=== PATIENT | female | born 1980 | race Caucasian/White ===

== ENCOUNTER 2017-05-07 12:36 | Inpatient (IN) | payer MEDICAID ==
[2017-05-07] MEDS ORDERED: Sodium Chloride 0.9% 500 ML IV ONE ×2 (12:54→13:20)
--- NOTE | 2017-05-07 12:54 | ED Physician Chart ---
ED Chief Complaint/HPI - Patient Information Date Seen:: 05/07/17 Time Seen:: 12:40 Chief Complaint:: Altered mental status. History of Present Illness:: Brought in by ambulance from nursing facility because she was found to be less responsive earlier. Pt has h/o traumatic brain injury and has been essentially nonverbal. Pt had G-tube placement for G-tube feeding. Pt reportedly pulled out her G-tube recently. Pt was noticed to have tachycardia prior to arrival at ER. Pt is responsive to voice and tactile stimuli. She is unable to cooperate fully; thus, H & P are limited. Info is primarily from review of transfer documents. Allergies:: Allergies Allergy/AdvReac Type Severity Reaction Status Date / Time MDX No Known Allergies - Nka Allergy Verified 08/14/13 17:11 [No Known Allergies - Nka] Vitals:: see Nurse Note Historian:: Medical Records (from transferring facility.) Family MD/PCP:: Dr. Haddad LMP:: Unknown Review:: Nurse's Note Reviewed, Transfer documents Reviewed ED Review of Systems - Review of Systems General/Constitutional: Other (Pt does not cooperate for ROS) ED Past Medical History - Past Medical History Past Medical History: PUD/GERD, Other (Trauma brain injury, chronic anemia.) Family History: Other (Pt does not cooperate to provide info on FHx.) Social History: Care Facility, Other (Pt does not cooperate to provide info on SHx.) Surgical History: PEG/GTube Psychiatricy History: Other (Mood disorder/Anxiety disorder.) Medication: Reviewed Family Medical History - Family Member Father Age: 67 Ethnicity: Non- Living Status: Still Living Hx Family Cancer: No Hx Family Coronary Artery Disease: No Hx Family Congestive Heart Failure: No Hx Family Hypertension: No Hx Family Stroke: No Hx Family Diabetes: Yes Hx Family Seizures: No Hx Family Dementia: No Hx Family AIDS: No Hx Family HIV: No Hx Family COPD: No Hx Family Hepatitis: No Hx Family Psychiatric Problems: No Hx Family Tuberculosis: No Other Medical History: Father at pt.'s bedside. Medical history given by father. ED Physical Exam - Physical Examination General/Constitutional: Awake, Well-developed, well-nourished, Alert, Non-toxic appearing Other Gen/Cons comments:: Responds to voice and tactile stimuli. Pt appears to be anxious but otherwise in no distress. Other Head comments:: A well healed craniostomy surgical scar noticed in R frontoparietal region. Eyes: PERRL, EOMI Other Eyes comments:: Chronic changes noticed in R eyelid with partial closure of lateral aspect. Skin: No skin lesions, No ecchymosis, No lymphadenopathy ENMT: External ears, nose nl, Nasal exam nl, Oropharynx nl Other ENMT comments:: Mucous membrane is dry. Neck: Nontender, Full ROM w/o pain, No JVD, No nuchal rigidity, No mass, No stridor Other Neck comments:: Tracheostomy noticed in mid anteroinferior aspect. Respiratory: Nl effort/Exclusion, Clear to Auscultation, No Wheeze/Rhonchi/Rales Cardio Vascular: No murmur, gallop, rubs Other Cardio Vascular comments:: Regular rhythm with tachycardia. HR 146. GI: No tenderness/rebounding/guarding, No organomegaly, No hernia, Normal BS's, Nondistended, No mass/bruits, No McBurney tenderness Other GI comments:: Gastrostomy noticed in LUQ with rubber catheter in place. Extremities: No edema Other Neuro/Psych comments:: Alert and responds to voice and tactile stimuli. Spontaneous movements noticed in all 4 extremities. Pt does not cooperate for full neurological exam. ED Labs/Radiology/EKG Results - Lab Results Results: Laboratory Tests 05/07/17 05/07/17 05/07/17 12:58 12:58 12:58 WBC 25.3 H* D RBC 5.57 H Hgb 16.9 D Hct 51.8 D MCV 93.0 MCH 30.4 MCHC Differential 32.7 RDW 14.0 Plt Count 298 MPV 9.9 Band Neutrophils % 4 Neutrophils (Manual) 70 Lymphocytes 20 Monocytes 6 Platelet Estimate ADEQUATE Platelet Morphology NORMAL RBC Morph Micro Appear NORMAL PT 12.0 H INR 1.14 PTT (Actin FS) 24.5 L Sodium 165 H* Potassium 4.0 Chloride 125 H Carbon Dioxide 33.6 H Anion Gap 10.4 BUN 32 H Creatinine 1.2 Est GFR ( Amer) > 60.0 Est GFR (Non-Af Amer) 54.0 BUN/Creatinine Ratio 26.7 Glucose 216 H POC Glucose Hemoglobin A1c % Whole Bld Lactic Acid Calcium 10.7 H Total Bilirubin 2.1 H AST 150 H ALT 98 H Alkaline Phosphatase 65 Creatine Kinase 41 Troponin I Total Protein 8.8 H Albumin 4.5 Globulin 4.3 Albumin/Globulin Ratio 1.1 Urine Source Urine Color Urine Clarity Urine pH Ur Specific [place] Urine Protein Urine Glucose (UA) Urine Ketones Urine Blood Urine Nitrate Urine Bilirubin Urine Urobilinogen Ur Leukocyte Esterase Urine RBC Urine WBC Ur Epithelial Cells Amorphous Sediment Urine Bacteria Urine Mucus Urine Test Valproic Acid 05/07/17 05/07/17 05/07/17 12:58 13:06 13:11 WBC RBC Hgb Hct MCV MCH MCHC Differential RDW Plt Count MPV Band Neutrophils % Neutrophils (Manual) Lymphocytes Monocytes Platelet Estimate Platelet Morphology RBC Morph Micro Appear PT INR PTT (Actin FS) Sodium Potassium Chloride Carbon Dioxide Anion Gap BUN Creatinine Est GFR ( Amer) Est GFR (Non-Af Amer) BUN/Creatinine Ratio Glucose POC Glucose 177 H Hemoglobin A1c % Whole Bld Lactic Acid Calcium Total Bilirubin AST ALT Alkaline Phosphatase Creatine Kinase Troponin I 0.10 H* D Total Protein Albumin Globulin Albumin/Globulin Ratio Urine Source Urine Color Urine Clarity Urine pH Ur Specific [place] Urine Protein Urine Glucose (UA) Urine Ketones Urine Blood Urine Nitrate Urine Bilirubin Urine Urobilinogen Ur Leukocyte Esterase Urine RBC Urine WBC Ur Epithelial Cells Amorphous Sediment Urine Bacteria Urine Mucus Urine Test Valproic Acid 25.4 L 05/07/17 05/07/17 05/07/17 13:45 13:45 13:45 WBC RBC Hgb Hct MCV MCH MCHC Differential RDW Plt Count MPV Band Neutrophils % Neutrophils (Manual) Lymphocytes Monocytes Platelet Estimate Platelet Morphology RBC Morph Micro Appear PT INR PTT (Actin FS) Sodium Potassium Chloride Carbon Dioxide Anion Gap BUN Creatinine Est GFR ( Amer) Est GFR (Non-Af Amer) BUN/Creatinine Ratio Glucose POC Glucose Hemoglobin A1c % Whole Bld Lactic Acid 3.10 H* Calcium Total Bilirubin AST ALT Alkaline Phosphatase Creatine Kinase Troponin I Total Protein Albumin Globulin Albumin/Globulin Ratio Urine Source [place] Urine Color ORANGE Urine Clarity CLOUDY H Urine pH 5.5 Ur Specific [place] 1.025 Urine Protein 100 H Urine Glucose (UA) NEGATIVE Urine Ketones TRACE Urine Blood SMALL H Urine Nitrate NEGATIVE Urine Bilirubin MODERATE H Urine Urobilinogen 1.0 Ur Leukocyte Esterase NEGATIVE Urine RBC 5-10 H Urine WBC 0-2 Ur Epithelial Cells FEW Amorphous Sediment MODERATE URATES Urine Bacteria 1+ H Urine Mucus MODERATE Urine Test NEGATIVE Valproic Acid 05/07/17 05/07/1717 13:59 15:03 21:01 WBC RBC Hgb Hct MCV MCH MCHC Differential RDW Plt Count MPV Band Neutrophils % Neutrophils (Manual) Lymphocytes Monocytes Platelet Estimate Platelet Morphology RBC Morph Micro Appear PT INR PTT (Actin FS) Sodium Potassium Chloride Carbon Dioxide Anion Gap BUN Creatinine Est GFR ( Amer) Est GFR (Non-Af Amer) BUN/Creatinine Ratio Glucose POC Glucose Hemoglobin A1c % 5.3 Whole Bld Lactic Acid 2.01 H* Calcium Total Bilirubin AST ALT Alkaline Phosphatase Creatine Kinase Troponin I 0.06 H D Total Protein Albumin Globulin Albumin/Globulin Ratio Urine Source Urine Color Urine Clarity Urine pH Ur Specific [place] Urine Protein Urine Glucose (UA) Urine Ketones Urine Blood Urine Nitrate Urine Bilirubin Urine Urobilinogen Ur Leukocyte Esterase Urine RBC Urine WBC Ur Epithelial Cells Amorphous Sediment Urine Bacteria Urine Mucus Urine Test Valproic Acid 05/07/17 21:45 WBC RBC Hgb Hct MCV MCH MCHC Differential RDW Plt Count MPV Band Neutrophils % Neutrophils (Manual) Lymphocytes Monocytes Platelet Estimate Platelet Morphology RBC Morph Micro Appear PT INR PTT (Actin FS) Sodium Potassium Chloride Carbon Dioxide Anion Gap BUN Creatinine Est GFR ( Amer) Est GFR (Non-Af Amer) BUN/Creatinine Ratio Glucose POC Glucose 140 H Hemoglobin A1c % Whole Bld Lactic Acid Calcium Total Bilirubin AST ALT Alkaline Phosphatase Creatine Kinase Troponin I Total Protein Albumin Globulin Albumin/Globulin Ratio Urine Source Urine Color Urine Clarity Urine pH Ur Specific [place] Urine Protein Urine Glucose (UA) Urine Ketones Urine Blood Urine Nitrate Urine Bilirubin Urine Urobilinogen Ur Leukocyte Esterase Urine RBC Urine WBC Ur Epithelial Cells Amorphous Sediment Urine Bacteria Urine Mucus Urine Test Valproic Acid - Radiology Results Results: PCXR: Based on my interpretation, poor inspiration; otherwise, no definite acute cardiopulmonary disease. Official report is pending. Head CT without contrast: Surgical changes. Atrophy and chronic white matter changes. Moderate ventriculomegaly. Malpositioned ventricular shunt tip w/in rt parietal white matter region. NAD. Official report per Dr. Arjun Wong, radiologist. Abdominal sonogram (Preliminary report): Significant for echogenic focus measures 0.8 x 0.5 x 1 cm. Low level echoes possibly indicative of sludge and small gallstones. See report for details. CT of abdomen and pelvis: pending. - EKG Interpretations EKG Time:: 13:01 Rate & Rhythm: Sinus tachycardia with VR 153 Comments:: NSSTT changes. Cannot r/o lateral ischemia. bus monitor: Sinus tachycardia with VR 149. No ectopy. ED Septic Shock - . Is Septic Shock (SBP<90, OR Lactate>4 mmol\L) present?: No ED Reassessment (Disposition) - Reassessment Reassessment:: 1340 Pt has been repeatedly evaluated. Pt has become more awake and responsive after IV hydration. Available lab results have been reviewed. IV fluid is to be changed to half normal saline because of hypernatremia. Because of significant leukocytosis, work up is to be expanded. 1450 Pt overall remains stable. No new findings. Awaiting abdominal sonogram. 1550 Pt continues to improve. Lactic acid level has decreased from 3.1 to 2. Pt just had CT and CXR. 1700 Pt remains stable. Abdominal sonogram is in progress. 1805 Pt continues to improve. Pt continues to be hydrated with half normal saline. Abdominal sonographic report and Head CT just became available. Lab, EKG , sonographic, and available CT findings have been reviewed with next kin her father at bedside. Managment plan has been discussed. Admitting physician is to be contacted. 1648 Case was discussed with Dr. Osei with pertinent H & P, lab, and imaging findings, etc. discussed. Pt is to be admitted to ICU under his care. He will follow on pending CT of abdomen and pelvis. Reassessment Condition:: Improved - Diagnosis Diagnosis:: Dehydration with hypernatremia. Probable sepsis with leukocytosis and lactic acidosis related to urinary tract infection with bacteriuria. Mildly elevated troponin I of unknown significance. Elevated tranaminase and hyperbilirubinemia. Diabetes mellitus. H/O traumatic brain injury with diability in speech and need for G-tube feeding. - Patient Disposition Admitted to:: ICU Admitting Medical Physician:: Vinay Osei Time:: 18:50 Condition at Disposition:: Stable, Improved ED Discharge Plan - Patient Disposition Admit/Discharge/Transfer: Acute Care w/in this hosp
[2017-05-07 13:06] VITALS: BP 121/99
[2017-05-07 13:10] LABS: MEAN CORPUSCULAR HEMOGLOBIN 30.4 pg (27.0-31.0); MEAN CORPUSCULAR HGB CONC 32.7 pg (28.0-36.0); MEAN PLATELET VOLUME 9.9 fl; NEUTROPHILE ABSOLUTE 19.9 Th/cmm (1.8-8.0); PLATELET COUNT 298 Th/cmm (150-400); RED BLOOD COUNT 5.57 Mil/cmm (3.80-5.10)
[2017-05-07 13:21] LABS: HEMATOCRIT 51.8 % (41.0-60); HEMOGLOBIN 16.9 gm/dL (12-16); WHITE BLOOD COUNT 25.3 Th/cmm (4.8-10.8)
[2017-05-07 13:25] LABS: ALB/GLOB RATIO 1.1 (1.0-1.8); ALKALINE PHOSPHATASE 65 U/L (34-104); ANION GAP 10.4 (7.0-16.0); BILIRUBIN,TOTAL 2.1 mg/dL (0.3-1.0); BUN - UREA NITROGEN 32 mg/dL (7-25); BUN/CREATININE RATIO 26.7; CALCIUM SERUM 10.7 mg/dL (8.6-10.3); CARBON DIOXIDE 33.6 mEq/L (21.0-31.0); CHLORIDE 125 mEq/L (98-107); CREATININE - SERUM 1.2 mg/dL (0.6-1.2); GLUCOSE 216 mg/dL (70-105); SGOT 150 U/L (13-39); SGPT/ALT 98 U/L (7-52)
[2017-05-07 13:39] LABS: TOTAL CELLS COUNTED 100
[2017-05-07 13:40] LABS: SODIUM SERUM 165 mEq/L (136-145)
[2017-05-07 13:42] LABS: BAND NEUTROPHILE 4 % (0-10); NEUTROPHILS 70 % (40-80); PLATELET ESTIMATE ADEQUATE (NORMAL); PLATELET MORPHOLOGY NORMAL (NORMAL)
[2017-05-07] MEDS ORDERED: Sodium Chloride 0.45% 1,000 ML IV ONE (13:42)
[2017-05-07] MEDS ORDERED: cefTRIAXone 1 GM in Sodium Chloride 0.9% 50 ML IV ONE (13:48)
[2017-05-07 14:15] LABS: URINE BILIRUBIN MODERATE (NEGATIVE); URINE BLOOD SMALL (NEGATIVE); URINE GLUCOSE (UA) NEGATIVE (NEGATIVE); URINE KETONE TRACE mg/dL (NEGATIVE); URINE PH 5.5 (4.6 - 8.0); URINE PROTEIN 100 mg/dL (NEGATIVE)
[2017-05-07 14:19] LABS: INR 1.14 (0.5-1.4)
[2017-05-07 14:39] LABS: URINE COLOR ORANGE
[2017-05-07 14:43] LABS: URINE EPITHELIAL CELLS FEW /lpf (FEW); URINE WBC 0-2 /hpf (0-5)
[2017-05-07 14:44] LABS: URINE AMORPHOUS SEDIMENT MODERATE URATES (NONE SEEN); URINE BACTERIA 1+ /hpf (NONE SEEN)
[2017-05-07] MEDS ORDERED: Ampicillin Sodium/Sulbactam 3 GM in Sodium Chloride 0.9% 100 ML IV ONE (14:54)
[2017-05-07] MEDS ORDERED: Hydrocodone/APAP 5mg/325mg Tab PO PRN (20:01)
[2017-05-07] MEDS ORDERED: Maalox 30 mL Cup PO PRN (20:04)
[2017-05-07] MEDS ORDERED: Ipratropium Neb 0.5 mg/2.5 mL UD IH PRN (20:04)
[2017-05-07] MEDS ORDERED: Albuterol Nebulizer 2.5mg/3mL HHN PRN (20:04)
[2017-05-07] MEDS ORDERED: Dextrose 5% 1,000 ML IV SCH (20:15)
[2017-05-07] MEDS: INSULIN ASPART, RECOMBINANT 100 UNITS/ML SUBQ SCH (21:46)
[2017-05-08 04:58] LABS: ALB/GLOB RATIO 1.1 (1.0-1.8); ALKALINE PHOSPHATASE 60 U/L (34-104); ANION GAP 10.1 (7.0-16.0); BILIRUBIN,TOTAL 1.3 mg/dL (0.3-1.0); BUN - UREA NITROGEN 22 mg/dL (7-25); BUN/CREATININE RATIO 27.5; CALCIUM SERUM 8.8 mg/dL (8.6-10.3); CARBON DIOXIDE 29.3 mEq/L (21.0-31.0); CHLORIDE 127 mEq/L (98-107); CREATININE - SERUM 0.8 mg/dL (0.6-1.2); GLUCOSE 143 mg/dL (70-105); MAGNESIUM 2.6 mg/dL (1.9-2.7); PHOSPHOROUS 2.5 mg/dL (2.5-5.0); POTASSIUM SERUM 3.4 mEq/L (3.5-5.1); SGOT 87 U/L (13-39); SGPT/ALT 67 U/L (7-52)
[2017-05-08 04:59] LABS: MEAN CELL VOLUME 93.1 fl (81-100); MEAN CORPUSCULAR HEMOGLOBIN 30.4 pg (27.0-31.0); MEAN CORPUSCULAR HGB CONC 32.7 pg (28.0-36.0); RED BLOOD COUNT 4.58 Mil/cmm (3.80-5.10)
[2017-05-08 05:14] LABS: SODIUM SERUM 163 mEq/L (136-145)
[2017-05-08 05:16] LABS: HEMATOCRIT 42.7 % (41.0-60); HEMOGLOBIN 13.9 gm/dL (12-16)
[2017-05-08 05:17] LABS: PLATELET COUNT 198 Th/cmm (150-400)
[2017-05-08 05:31] LABS: TSH 0.55 uIU/ml (0.34-5.60)
[2017-05-08 06:06] LABS: BAND NEUTROPHILE 4 % (0-10); BASOPHIL 1 % (0-3); EOSINOPHIL 2 % (0-5); NEUTROPHILS 69 % (40-80); TOTAL CELLS COUNTED 100
[2017-05-08] MEDS: INSULIN ASPART, RECOMBINANT 100 UNITS/ML SUBQ SCH ×4 (06:35→22:26)
--- NOTE | 2017-05-08 07:56 | Diagnostic Imaging Report ---
Head CT without intravenous contrast Indication: Altered mental status Comparison: None Technique: Axial images were obtained from the vertex to the skull base without IV contrast. Coronal reconstructions were made. Total DLP: 542, CTDI34.2 FINDINGS: Images of the brain obtained without contrast demonstrate evidence of left frontal and temporal craniotomies with associated postsurgical changes. A right frontal approach shunt catheter is seen traversing the frontal horn of the lateral ventricles with tip terminating along the left basal ganglia region. There is generalized prominence of ventricular system. There is no evidence of an acute hemorrhage. Atrophy is noted. Mild white matter disease is seen with areas of encephalomalacia seen involving the bifrontal lobes which may be due to old trauma or old infarcts. No mass effect or midline shift. No evidence of a skull fracture or focal soft tissue swelling. The visualized paranasal sinuses demonstrate mild mucosal thickening. IMPRESSION: Postsurgical changes including evidence of previous left frontal-temporal craniotomies. A right frontal approach shunt catheter is also seen traversing the frontal horn of the lateral ventricles with tip terminating along the right basal ganglia. Generalized prominence of ventricular system is also noted. Please correlate with patient's clinical history and old exams to assess patient's shunt status. Areas of encephalomalacia involving the bifrontal lobe regions which may be due to old trauma or old infarcts. Atrophy. No midline shift. No evidence of an acute hemorrhage.
--- NOTE | 2017-05-08 07:57 | Diagnostic Imaging Report ---
CHEST X-RAY: AP view INDICATION: Leukocytosis COMPARISON: None FINDINGS: A right-sided RECONCILEMENT CLERK shunt is noted. Suboptimal lung volumes are noted. There is no focal consolidation or pleural effusions The heart is normal in size. The osseous structures demonstrate no acute abnormalities. IMPRESSION: Suboptimal lung volume with no focal consolidation identified Right-sided RECONCILEMENT CLERK shunt noted.
--- NOTE | 2017-05-08 08:00 | Diagnostic Imaging Report ---
Ultrasound abdomen HISTORY: Elevated liver function tests COMPARISON: None Technique: Sonography of the abdomen was performed in multiple planes. FINDINGS: Exam is limited due to body habitus and bowel gas. The liver demonstrates increased echogenicity with no evidence of focal lesions. Note the liver margins were not well defined on this exam. The liver measures 15.4 cm. Low level echoes are seen within the gallbladder suggestive of small amount of sludge. A solitary stone is also seen measuring 1 cm near the gallbladder neck. No evidence of gallbladder wall thickening. The common bile duct measures 4 mm. Evaluation of the pancreas is limited due to bowel gas. The right kidney measures 10.7 cm. No evidence of focal lesions or hydronephrosis. The left kidney measures 10.3 cm No evidence of focal lesions or hydronephrosis. The spleen was not well-visualized. IMPRESSION: Limited exam due to bowel gas and body habitus. Low level echoes of the gallbladder are seen suggestive of gallbladder sludge. A solitary gallstone measuring 1 cm is also seen near the neck of the gallbladder. There may be additional tiny gallstones. Mildly distended gallbladder is also noted. No evidence of gallbladder wall thickening or pericholecystic fluid. Please correlate with clinical findings. No evidence of common bile duct dilatation Increased echogenicity of the liver which may be due to underlying fatty infiltration.
--- NOTE | 2017-05-08 08:45 | Diagnostic Imaging Report ---
CHEST X-RAY: AP view INDICATION: Pneumonia COMPARISON: Chest x-ray 05/07/2017 1553 FINDINGS: Right sided ELEVATOR ERECTOR HELPER shunt is stable. Increased bibasilar lung markings are seen. No pleural effusions. Heart size is normal. IVC filter is noted. IMPRESSION: Increased bibasilar markings which is likely due to atelectasis. Underlying infiltrate at the left lung base is less likely but cannot be excluded.
[2017-05-08] MEDS ORDERED: Pantoprazole 40 mg/Packet GT SCH (09:00)
[2017-05-08] MEDS: Polyvinyl Alcohol Ophth Soln 15 mL Bottle EACH EYE SCH ×2 (09:15→17:00)
[2017-05-08] MEDS ORDERED: Diatrizoate Meglumine/Diatri 30 mL Sol PO ONE (10:58)
--- NOTE | 2017-05-08 11:24 | Operative Report ---
DATE OF SURGERY: 05/08/2017 INPATIENT GASTROINTESTINAL PROCEDURE NAME OF PROCEDURE: G-tube change. REFERRING PHYSICIAN: Dr. Osei. REASON FOR PROCEDURE: Malfunctioning G-tube, dysphagia. PREOPERATIVE DIAGNOSIS: Malfunctioning G-tube, dysphagia. POSTOPERATIVE DIAGNOSIS: New 20-Alban[place] gastrostomy tube placed. DESCRIPTION OF PROCEDURE: The patient was placed on her back. The old G-tube was identified. It was a Wallace tube. It was removed after deflating the internal balloon and pulled out. A new 20-[place]ban[place] gastrostomy tube was lubricated at the tip and inserted through the gastrocutaneous fistula entering into stomach lumen. Internal balloon was inflated with 15 mL of sterile saline. The outer phalange was secured in position. Procedure was then completed. COMPLICATIONS: None. FINDINGS: A 20-[place]ban[place] gastrostomy tube placed. RECOMMENDATIONS: 1. KUB with Gastrografin confirmed placement. 2. If it is in the correct position may consider using in the future. 3. Check residual every 6 hours and if greater than 100 mL. 4. Abdominal binder to protect the G-tube from being pulled out. Thank you for allowing me to participate. Please call me if there are any questions. JOB# [id number]
[2017-05-08] MEDS ORDERED: VTE Chemical Prophylaxis Screen/Admission MC PRN (12:26)
--- NOTE | 2017-05-08 12:31 | Diagnostic Imaging Report ---
CT abdomen and pelvis without intravenous contrast Indication: Elevated transaminases. Hyperbilirubinemia Comparison: Ultrasound abdomen on 05/07/2017, Technique: Axial images were obtained from the lung bases to the bilateral proximal femurs without IV contrast. Coronal reconstructions were made. total DLP: 757, [id number] FINDINGS: Atelectatic changes of the lung bases are seen. There is incomplete visualization of the dome of the liver. Exam is limited due to lack of IV and oral contrast. Bibasal consolidative changes are noted. Hepatomegaly is seen with diffuse fatty infiltration. Markedly distended gallbladder is noted with a 1.8 cm calcification along the gallbladder neck. Mild prominence of the gallbladder wall is noted. No focal splenic or pancreatic lesions. No focal adrenal lesions. 6 mm superior pole left renal stone is noted. Additional punctate right renal stones are noted. No hydronephrosis. An infrarenal IVC filter is noted. Wallace catheter seen with pockets of gas and urinary bladder. AIR QUALITY MANAGER shunt catheter is seen terminating within the pelvis. Few pockets of gas in the urinary bladder is noted. There is 1.8 cm calcification along the right pelvis which may represent a fibroid calcification. Bilateral adnexal follicular cystic changes are noted. Gas-filled loops of bowel are noted without evidence of bowel obstruction. There is fatty infiltration of the colonic mucosa. The appendix is not well-visualized. A few borderline prominent mesenteric lymph nodes are noted. Osteopenia is noted. Mild changes spine are noted. Bilateral breast implants are noted. IMPRESSION: Hepatomegaly with diffuse fatty infiltration. Markedly distended gallbladder with 1.8 cm stone seen along the gallbladder neck and mild prominence of the gallbladder wall. Note, early cholecystitis cannot be excluded. Recommend further assessment nuclear medicine HIDA scan. IVC filter noted. AIR QUALITY MANAGER shunt catheter with tip terminating within the pelvis Bilateral nonobstructive renal calculi. Nonspecific calcification of the pelvis possibly uterine calcification possibly representing fibroid. Bilateral adnexal cystic changes. Ultrasound would further clarify. Bibasal consolidative changes. Pneumonia of the lung bases cannot be excluded.
[2017-05-08] MEDS: Dextrose 5% 1,000 ML IV SCH (13:14)
[2017-05-08] MEDS: Docusate Sodium 100 mg/10 mL UD GT SCH (13:15)
--- NOTE | 2017-05-08 13:34 | Internal Medicine Prog Note ---
Internal Medicine Subjective - Subjective Service Date: 05/08/17 ([facility] dictated [id number]) Internal Medicine Objective - Results Result Diagrams: 05/08/17 04:35 05/08/17 04:35 Recent Labs: Laboratory Last Values WBC 23.0 Th/cmm (4.8-10.8) H* 05/08/17 04:35 RBC 4.58 Mil/cmm (3.80-5.10) 05/08/17 04:35 Hgb 13.9 gm/dL (12-16) D 05/08/17 04:35 Hct 42.7 % (41.0-60) D 05/08/17 04:35 MCV 93.1 fl (81-100) 05/08/17 04:35 MCH 30.4 pg (27.0-31.0) 05/08/17 04:35 MCHC Differential 32.7 pg (28.0-36.0) 05/08/17 04:35 RDW 14.0 % (11.5-20.0) 05/08/17 04:35 Plt Count 198 Th/cmm (150-400) D 05/08/17 04:35 MPV 10.0 fl 05/08/17 04:35 Band Neutrophils % 4 % (0-10) 05/08/17 04:35 Neutrophils (Manual) 69 % (40-80) 05/08/17 04:35 Lymphocytes 19 % (20-50) L 05/08/17 04:35 Monocytes 5 % (2-10) 05/08/17 04:35 Eosinophils 2 % (0-5) 05/08/17 04:35 Basophils 1 % (0-3) 05/08/17 04:35 Platelet Estimate ADEQUATE (NORMAL) 05/07/17 12:58 Platelet Morphology NORMAL (NORMAL) 05/07/17 12:58 RBC Morph Micro Appear NORMAL (NORMAL) 05/07/17 12:58 PT 12.0 SECONDS (9.5-11.5) H 05/07/17 12:58 INR 1.14 (0.5-1.4) 05/07/17 12:58 PTT (Actin FS) 24.5 SECONDS (26.0-38.0) L 05/07/17 12:58 Sodium 163 mEq/L (136-145) H* 05/08/17 04:35 Potassium 3.4 mEq/L (3.5-5.1) L 05/08/17 04:35 Chloride 127 mEq/L (98-107) H 05/08/17 04:35 Carbon Dioxide 29.3 mEq/L (21.0-31.0) 05/08/17 04:35 Anion Gap 10.1 (7.0-16.0) 05/08/17 04:35 BUN 22 mg/dL (7-25) 05/08/17 04:35 Creatinine 0.8 mg/dL (0.6-1.2) 05/08/17 04:35 Est GFR ( Amer) > 60.0 ml/min (>90) 05/08/17 04:35 Est GFR (Non-Af Amer) > 60.0 ml/min 05/08/17 04:35 BUN/Creatinine Ratio 27.5 05/08/17 04:35 Glucose 143 mg/dL (70-105) H 05/08/17 04:35 POC Glucose 137 MG/DL (70 - 105) H 05/08/17 11:40 Hemoglobin A1c % 5.3 % (4.0-6.0) 05/07/17 13:59 Whole Bld Lactic Acid 2.01 mmol/L (0.60-1.99) H* 05/07/17 15:03 Calcium 8.8 mg/dL (8.6-10.3) 05/08/17 04:35 Phosphorus 2.5 mg/dL (2.5-5.0) 05/08/17 04:35 Magnesium 2.6 mg/dL (1.9-2.7) 05/08/17 04:35 Total Bilirubin 1.3 mg/dL (0.3-1.0) H 05/08/17 04:35 AST 87 U/L (13-39) H 05/08/17 04:35 ALT 67 U/L (7-52) H 05/08/17 04:35 Alkaline Phosphatase 60 U/L (34-104) 05/08/17 04:35 Ammonia 54 umol/L (16-53) H 05/08/17 04:35 Creatine Kinase 41 U/L (30-223) 05/07/17 12:58 Troponin I 0.06 ng/mL (0.01-0.05) H D 09/17/17 21:01 Total Protein 6.8 gm/dL (6.0-8.3) 05/08/17 04:35 Albumin 3.6 gm/dL (3.7-5.3) L 05/08/17 04:35 Globulin 3.2 gm/dL 05/08/17 04:35 Albumin/Globulin Ratio 1.1 (1.0-1.8) 05/08/17 04:35 Lipase 176 U/L (11-82) H 05/08/17 04:35 TSH 0.55 uIU/ml (0.34-5.60) 05/08/17 04:35 Urine Source [place] 05/07/17 13:45 Urine Color ORANGE 05/07/17 13:45 Urine Clarity CLOUDY (CLEAR) H 05/07/17 13:45 Urine pH 5.5 (4.6 - 8.0) 05/07/17 13:45 Ur Specific [place] 1.025 (1.005-1.030) 05/07/17 13:45 Urine Protein 100 mg/dL (NEGATIVE) H 05/07/17 13:45 Urine Glucose (UA) NEGATIVE mg/dL (NEGATIVE) 05/07/17 13:45 Urine Ketones TRACE mg/dL (NEGATIVE) 05/07/17 13:45 Urine Blood SMALL (NEGATIVE) H 05/07/17 13:45 Urine Nitrate NEGATIVE (NEGATIVE) 05/07/17 13:45 Urine Bilirubin MODERATE (NEGATIVE) H 05/07/17 13:45 Urine Urobilinogen 1.0 E.U./dL (0.2 - 1.0) 05/07/17 13:45 Ur Leukocyte Esterase NEGATIVE (NEGATIVE) 05/07/17 13:45 Urine RBC 5-10 /hpf (0-5) H 05/07/17 13:45 Urine WBC 0-2 /hpf (0-5) 05/07/17 13:45 Ur Epithelial Cells FEW /lpf (FEW) 05/07/17 13:45 Amorphous Sediment MODERATE URATES (NONE SEEN) 05/07/17 13:45 Urine Bacteria 1+ /hpf (NONE SEEN) H 05/07/17 13:45 Urine Mucus MODERATE /lpf (FEW) 05/07/17 13:45 Urine Test NEGATIVE 05/07/17 13:45 Valproic Acid 25.4 ug/mL (50.0-100.0) L 05/07/17 13:06 - Physical Exam Vitals and I&O: Vital Signs Temp 97.6 F 05/08/17 08:00 Pulse 109 05/08/17 10:00 Resp 20 05/08/17 10:00 BP 92/59 05/08/17 10:00 Pulse Ox 98 05/08/17 10:00 Intake & Output 05/07/17 05/08/17 05/08/17 18:59 06:59 18:59 Intake Total 300 50 Output Total 300 Balance 0 50 Weight (lbs) 139 lb 1 oz Intake: Intake, IV Amount 300 50 Cefepime 1 gm In Dextrose 50 50 5% 50 ml @ 100 mls/hr IV Q12H [facility] Rx#:[id number] Vancomycin HCl 1 gm In 250 Sodium Chloride 0.9% 250 ml @ 166.667 mls/hr IV Q24H [facility] Rx#:[id number] Oral 0 Output: Urine 300 Stool 0 Active Medications: Current Medications Acetaminophen (Tylenol) 650 mg PO Q4H PRN PRN Reason: Mild Pain Or Fever above 101 Stop: 07/06/17 20:03 Acetaminophen/Hydrocodone Bitart ([place] 5mg/325mg) 1 tab PO Q6H PRN PRN Reason: Pain (Severe) Stop: 07/06/17 20:00 Al Hydrox/Mg Hydrox/Simethicone (Maalox) 30 ml PO Q6H PRN PRN Reason: Dyspepsia Stop: 07/06/17 20:03 Albuterol Sulfate (Albuterol 2.5mg/3ml Neb Ud) 2.5 mg HHN Q2HRT PRN PRN Reason: Shortness of Breath or Wheeze Stop: 07/06/17 20:03 Artificial Tears (Artificial Tears Ophth Soln) 1 drop EACH EYE BID [facility] Stop: 07/07/17 08:59 Divalproex Sodium (Depakote Sprinkle) 125 mg GT Q12HR [facility] PRN Reason: Protocol Stop: 07/07/17 11:59 Docusate Sodium (Colace) 100 mg GT DAILY [facility] Stop: 07/07/17 12:59 Ferrous Sulfate (Iron) 300 mg GT TID [facility] Stop: 07/07/17 13:59 Heparin Sodium (Porcine) (Heparin) 5,000 units SUBQ Q12HR [facility] Stop: 07/07/17 20:59 Cefepime HCl 1 gm/ Dextrose 50 mls @ 100 mls/hr IV Q12H [facility] Stop: 07/06/17 20:59 Last Infusion: 05/08/17 09:25 Dose: Infused Vancomycin HCl 1.5 gm/ Sodium (Chloride) 500 mls @ 250 mls/hr IV Q12H [facility] Stop: 07/07/17 11:59 Dextrose (D5w) 1,000 mls @ 100 mls/hr IV .Q10H [facility] Stop: 07/06/17 20:14 Potassium Chloride (Potassium Chloride) 20 meq in 100 mls @ 50 mls/hr IV X1 ONE Stop: 05/08/17 15:12 Insulin Aspart (Novolog) 0 units SUBQ ACHS [facility] PRN Reason: Protocol Stop: 07/06/17 20:59 Last Admin: 05/08/17 12:22 Dose: Not Given Ipratropium [place] (Atrovent Neb 0.5mg/2.5ml) 0.5 mg IH Q2HRT PRN PRN Reason: Shortness of Breath or Wheeze Stop: 07/06/17 20:03 Latanoprost (Xalatan 0.005% Oph Soln) 1 drop RIGHT EYE HS [facility] Stop: 07/06/17 20:59 Last Admin: 05/07/17 21:48 Dose: Not Given Lorazepam (Ativan) 1 mg GT Q6H PRN; Protocol PRN Reason: Anxiety Stop: 07/06/17 20:00 Lorazepam (Ativan) 1 mg IV Q4H PRN; Protocol PRN Reason: Seizure Stop: 07/06/17 20:03 Last Admin: 05/08/17 04:51 Dose: 1 mg Miscellaneous (Vancomycin Iv Per Pharmacy) 1 ea PRN [facility] Stop: 07/06/17 20:14 Miscellaneous (Vte Chemical Prophylaxis Screen/ Admission) 1 ea PRN PRN PRN Reason: PROTOCOL Stop: 07/07/17 12:25 Ondansetron HCl (Zofran) 4 mg IV Q8H PRN PRN Reason: Nausea / Vomiting Stop: 07/06/17 20:03 Pantoprazole Sodium (Protonix) 40 mg GT DAILY [facility] Stop: 07/07/17 08:59 Last Admin: 05/08/17 09:36 Dose: Not Given Internal Medicine Assmt/Plan - Assessment Assessment: SEPSIS ALOC HYPERNATREMIA HYPOKALEMIA GT MALFUNCTION ACUTE UTI Nutritional Asmnt/Malnutr-PDOC - Dietary Evaluation Malnutrition Findings (Please click <Entered> for more info): Nutritional Asmnt/Malnutrition Start: 05/08/17 11: 46 Text: Status: Complete Freq: Document 05/08/17 11:46 GSUN (Rec: 05/08/17 12:08 [email or web address] [email or web address]) Nutritional Asmnt/Malnutrition Patient General Information Nutritional Screening High Risk Screening Diagnosis ER: dehydration, possible sepsis with leukocytosis, DM Pertinent Medical Hx/Surgical Hx ER report: PUD/GERD, trauma brain injury, chronic anemia Subjective Information 37 year old female from SNF. Pt was awake, non-verbal, family at bedside. GI Dr. Ch arrived during visit to replace g-tube. Confirmed with RN and pt's chart, pt is tube feeding dependent with pureed [place] for oral gratification. No muscle fat wasting noted. Current Diet Order/ Nutrition Support Currently no diet order. Pertinent Medications D5w, Iron, Novolog, Vancomycin , Zofran, Protonix Pertinent Labs 05/07: A1c 5.3 05/08: sodium 163H, potassium 3 .4L, glucose 143H, total bilirubin 1.3H Nutritional Hx/Data Height 5 ft 7 in Height (Calculated Centimeters) 170.2 Current Weight (lbs) 139 lb Weight (Calculated Kilograms) 63.0 Weight (Calculated Grams) 44203.3 [place] Body Weight 135 Weight Status Approriate GI Symptoms Difficult in: Chewing Swallowing Food Allergies No Cultural/Ethnic/Buddhist Belief [facility]: pureed with [place] for oral gratification. EN two trista bolus 5 cans per day, providing 1185ml and 2375kcal. Usual diet at home Refer to above. Skin Integrity/Comment: Robin 13. LEft arm non- pitting 3+. Estimated Nutritional Goals BEE in Kcals: Using Current wt Calories/Kcals/Kg CBW 139lb/63.2kg Kcals Calculated 1580-2212kcal (25-35kcal/kg, possible sepsis and 2375kcal at SNF) Protein: Using Current wt Protein Calculated 63-82g (1-1.3g/kg) Fluid: ml 1580-2212ml (1ml/kcal) Nutritional Problem 1. Problem Problem Increased kcal and prot needs related to Etiology possible hypermetabolic state, unknown aeb Signs/Symptoms: possible sepsis, pt receieves 2375kcal at [facility] Intervention/Recommendation Comments 1. Recommend Nutren 2.0 as pt toelrates this formula at [facility] at 40ml/hr x 24hrs, providing 960ml total volume, 1920kcal, and 81g protein. 2. Monitor glucose levels, if remains consistantly high, recommend Diabetisource at 70ml/hr x 24hrs, providing 1680ml total volume, 2016kcal, and 101g protein. 3. Recommend pureed [place] thick food items for oral gratification if needed as pt tolerates at [facility]. Expected Outcomes/Goals Expected Outcomes/Goals 1. Pt to meet 100% of estimated nutritional needs on tube feeding with tolerance.
[2017-05-08] MEDS ORDERED: KCL 20mEq/100mL Premix 20 MEQ/100 ML PIGGYBACK IV ONE (13:45)
[2017-05-08] MEDS: Ferrous Sulfate 300 MG/5 ML UDC GT SCH ×2 (14:13→22:25)
[2017-05-08] MEDS ORDERED: Probiotic Screen MC PRN (14:42)
[2017-05-08] MEDS: Vancomycin HCl 1.5 GM in Sodium Chloride 0.9% 500 ML IV SCH ×2 (14:55→23:23)
--- NOTE | 2017-05-08 15:00 | History & Physical ---
ADMIT DATE: 05/07/2017 CHIEF COMPLAINT: Altered mental status. HISTORY OF PRESENT ILLNESS: This is a 37-year-old female who is a resident of [facility]. The patient was brought here to [facility] for apparently the nursing staff found patient less responsive and the patient reportedly pulled out her G-tube. In the ER, the patient was noted to have the tachycardia. For this reason, the patient is now admitted. PAST MEDICAL HISTORY: PUD, GERD, traumatic brain injury, chronic anemia. SOCIAL HISTORY: The patient is a group home resident, requiring 24-hour nursing care. PAST SURGICAL HISTORY: PEG. MEDICATIONS: Please see medication reconciliation. FAMILY HISTORY: Noncontributory. REVIEW OF SYSTEMS: Unable to obtain due to patient's mental status. The patient is nonverbal. PHYSICAL EXAMINATION: GENERAL: The patient is well developed, well-nourished in no acute distress. VITAL SIGNS: Temperature 97.6, heart rate 107, blood pressure 101/____, respirations ____, O2 100%. HEENT: Head: Normocephalic, atraumatic. NECK: Supple. No mass. LUNGS: Clear bilaterally. HEART: Regular rate and rhythm. ABDOMEN: Soft, nontender. LABORATORY DATA: WBC 23.0, H and H 13.9 and 42.7 and platelet 188. Sodium 163, potassium 3.4, chloride 127, BUN 22, creatinine 0.8. The patient had a urinalysis done and is positive for UTI. DIAGNOSTICS: The patient had a CT of the head done and the impression is post-surgical changes including evidence of previous left frontotemporal craniotomies. Chest x-ray was also obtained and the impression is right-sided OB SCRUB TECH shunt noted. CT of the abdomen and pelvis was also done and the impression is IVC filter, hepatomegaly with diffuse fatty infiltration. On 05/08/2017 today, the patient was seen by GI consult and gastrostomy tube was replaced. The patient tolerated the procedure well. ASSESSMENT: Sepsis, altered level of consciousness, hypokalemia, G-tube malfunction, leukocytosis, hypernatremia, acute urinary tract infection. PLAN: The patient to be admitted to the ICU unit. We will monitor patient's electrolytes level, IV fluids for hydration, a.m. labs. GI followup. Get a HIDA scan as per GI, also upper GI series as per GI and we will keep the patient on empiric IV antibiotics. We will continue to monitor the patient. [facility]# [id number]
--- NOTE | 2017-05-08 21:56 | Consultation ---
DATE OF CONSULTATION: 05/08/2017 INPATIENT GASTROINTESTINAL CONSULT REFERRING PHYSICIAN: Dr. Osei. REASON FOR CONSULTATION: Malfunctioning G-tube, dysphagia. HISTORY OF PRESENT ILLNESS: This is a 37-year-old female brought in from a skilled facility because of altered level of consciousness. The patient is otherwise a poor historian, apparently had a G-tube that had been removed and was replaced by a Wallace tube. The patient again is a poor historian, unable to give any meaningful history. PAST MEDICAL HISTORY: Dysphagia, traumatic brain injury. PAST SURGICAL HISTORY: PEG tube placement. FAMILY HISTORY: Noncontributory. SOCIAL HISTORY: Resident of a skilled facility. ALLERGIES: None. CURRENT MEDICATIONS: Tylenol, [place], Maalox, albuterol, cefepime, Depakote, insulin Atrovent, Ativan, vancomycin, Zofran, and Protonix. REVIEW OF SYSTEMS: Unobtainable. PHYSICAL EXAMINATION: VITAL SIGNS: Temperature is 97.2, breathing 23, pulse of 107, blood pressure 100/61, satting 100%. GENERAL: In no apparent distress. EYES: Anicteric, normal conjunctivae. HEENT: Normocephalic, atraumatic. Moist mucous membranes. NECK: Soft, supple. CHEST: Coarse breath sounds. CARDIOVASCULAR: Regular rate and rhythm. ABDOMEN: Soft, nontender, nondistended with a G-tube. SKIN: Warm, dry. EXTREMITIES: Reveal no cyanosis. LABORATORY DATA: Show white count 23, hemoglobin 13.9, platelets of 198. Total bilirubin 1.3, AST of 87, ALT 67, alk phos 60. Abdominal ultrasound showed gallstones. IMPRESSION: A 37-year-old female with underlying history of dysphagia, has a G-tube, seems to be malfunction, will likely need to have a change. The patient also has gallstones, elevated LFTs. Concern would be for cholecystitis. PLAN: 1. G-tube to be changed. 2. Follow LFTs. 3. Check a HIDA scan. 4. Consider surgical evaluation per primary team for the gallstones. 5. Continue antibiotics. Thank you for allowing me to participate. Please call me if any questions. JOB# [id number]
[2017-05-09 05:02] LABS: % BASOPHILS 0.3 % (0.0-2.0); % EOSINOPHILS 1.8 % (0.0-5.0); % LYMPHOCYTES 18.3 % (20.0-50.0); % MONOCYTES 6.5 % (2.0-10.0); % NEUTROPHILS 73.1 % (40.0-80.0); HEMATOCRIT 38.9 % (41.0-60); HEMOGLOBIN 12.7 gm/dL (12-16); MEAN CELL VOLUME 92.3 fl (81-100); MEAN CORPUSCULAR HEMOGLOBIN 30.1 pg (27.0-31.0); MEAN CORPUSCULAR HGB CONC 32.6 pg (28.0-36.0); MEAN PLATELET VOLUME 9.6 fl; NEUTROPHILE ABSOLUTE 10.6 Th/cmm (1.8-8.0); PLATELET COUNT 177 Th/cmm (150-400); RED BLOOD COUNT 4.21 Mil/cmm (3.80-5.10); RED CELL DISTRIBUTION WIDTH 13.2 % (11.5-20.0)
[2017-05-09 05:06] LABS: WHITE BLOOD COUNT 14.4 Th/cmm (4.8-10.8)
[2017-05-09 05:17] LABS: ALB/GLOB RATIO 1.1 (1.0-1.8); ALKALINE PHOSPHATASE 62 U/L (34-104); ANION GAP 8.8 (7.0-16.0); BILIRUBIN,TOTAL 0.9 mg/dL (0.3-1.0); BUN - UREA NITROGEN 15 mg/dL (7-25); BUN/CREATININE RATIO 21.4; CALCIUM SERUM 7.8 mg/dL (8.6-10.3); CARBON DIOXIDE 29.4 mEq/L (21.0-31.0); CHLORIDE 122 mEq/L (98-107); CREATININE - SERUM 0.7 mg/dL (0.6-1.2); GLUCOSE 115 mg/dL (70-105); MAGNESIUM 2.1 mg/dL (1.9-2.7); PHOSPHOROUS 2.4 mg/dL (2.5-5.0); POTASSIUM SERUM 3.2 mEq/L (3.5-5.1); SGOT 62 U/L (13-39); SGPT/ALT 48 U/L (7-52); SODIUM SERUM 157 mEq/L (136-145)
[2017-05-09] MEDS: INSULIN ASPART, RECOMBINANT 100 UNITS/ML SUBQ SCH ×4 (06:55→20:40)
[2017-05-09] MEDS: Pantoprazole 40 mg/Packet GT SCH (06:56)
[2017-05-09] MEDS: Dextrose 5% 1,000 ML IV SCH ×2 (07:52→22:55)
[2017-05-09] MEDS: Docusate Sodium 100 mg/10 mL UD GT SCH (08:00)
[2017-05-09] MEDS: Lactobacillus Rhamnosus 10 Billion CFU Capsule PO SCH (08:00)
[2017-05-09] MEDS: Ferrous Sulfate 300 MG/5 ML UDC GT SCH ×3 (08:00→20:42)
--- NOTE | 2017-05-09 08:09 | GI Progress Note ---
Subjective - Review of Systems Subjective: NO EVENTS Objective - Results Result Diagrams: 05/09/17 04:30 05/09/17 04:30 Recent Labs: Laboratory Last Values WBC 14.4 Th/cmm (4.8-10.8) H D 05/09/17 04:30 RBC 4.21 Mil/cmm (3.80-5.10) 05/09/17 04:30 Hgb 12.7 gm/dL (12-16) 05/09/17 04:30 Hct 38.9 % (41.0-60) L 05/09/17 04:30 MCV 92.3 fl (81-100) 05/09/17 04:30 MCH 30.1 pg (27.0-31.0) 05/09/17 04:30 MCHC Differential 32.6 pg (28.0-36.0) 05/09/17 04:30 RDW 13.2 % (11.5-20.0) 05/09/17 04:30 Plt Count 177 Th/cmm (150-400) 05/09/17 04:30 MPV 9.6 fl 05/09/17 04:30 Neutrophils % 73.1 % (40.0-80.0) 05/09/17 04:30 Band Neutrophils % 4 % (0-10) 05/08/17 04:35 Lymphocytes % 18.3 % (20.0-50.0) L 05/09/17 04:30 Monocytes % 6.5 % (2.0-10.0) 05/09/17 04:30 Eosinophils % 1.8 % (0.0-5.0) 05/09/17 04:30 Basophils % 0.3 % (0.0-2.0) 05/09/17 04:30 Neutrophils (Manual) 69 % (40-80) 05/08/17 04:35 Lymphocytes 19 % (20-50) L 05/08/17 04:35 Monocytes 5 % (2-10) 05/08/17 04:35 Eosinophils 2 % (0-5) 05/08/17 04:35 Basophils 1 % (0-3) 05/08/17 04:35 Platelet Estimate ADEQUATE (NORMAL) 05/07/17 12:58 Platelet Morphology NORMAL (NORMAL) 05/07/17 12:58 RBC Morph Micro Appear NORMAL (NORMAL) 05/07/17 12:58 PT 12.0 SECONDS (9.5-11.5) H 05/07/17 12:58 INR 1.14 (0.5-1.4) 05/07/17 12:58 PTT (Actin FS) 24.5 SECONDS (26.0-38.0) L 05/07/17 12:58 Sodium 157 mEq/L (136-145) H 05/09/17 04:30 Potassium 3.2 mEq/L (3.5-5.1) L 05/09/17 04:30 Chloride 122 mEq/L (98-107) H 05/09/17 04:30 Carbon Dioxide 29.4 mEq/L (21.0-31.0) 05/09/17 04:30 Anion Gap 8.8 (7.0-16.0) 05/09/17 04:30 BUN 15 mg/dL (7-25) 05/09/17 04:30 Creatinine 0.7 mg/dL (0.6-1.2) 05/09/17 04:30 Est GFR ( Amer) > 60.0 ml/min (>90) 05/09/17 04:30 Est GFR (Non-Af Amer) > 60.0 ml/min 05/09/17 04:30 BUN/Creatinine Ratio 21.4 05/09/17 04:30 Glucose 115 mg/dL (70-105) H 05/09/17 04:30 POC Glucose 121 MG/DL (70 - 105) H 05/08/17 22:03 Hemoglobin A1c % 5.3 % (4.0-6.0) 05/07/17 13:59 Whole Bld Lactic Acid 2.01 mmol/L (0.60-1.99) H* 05/07/17 15:03 Calcium 7.8 mg/dL (8.6-10.3) L 05/09/17 04:30 Phosphorus 2.4 mg/dL (2.5-5.0) L 05/09/17 04:30 Magnesium 2.1 mg/dL (1.9-2.7) 05/09/17 04:30 Total Bilirubin 0.9 mg/dL (0.3-1.0) 05/09/17 04:30 Direct Bilirubin 0.30 mg/dL (0.0-0.2) H 05/09/17 04:30 AST 62 U/L (13-39) H 05/09/17 04:30 ALT 48 U/L (7-52) 05/09/17 04:30 Alkaline Phosphatase 62 U/L (34-104) 05/09/17 04:30 Ammonia 54 umol/L (16-53) H 05/08/17 04:35 Creatine Kinase 41 U/L (30-223) 05/07/17 12:58 Troponin I 0.06 ng/mL (0.01-0.05) H D 05/07/17 21:01 Total Protein 6.1 gm/dL (6.0-8.3) 05/09/17 04:30 Albumin 3.2 gm/dL (3.7-5.3) L 05/09/17 04:30 Globulin 2.9 gm/dL 05/09/17 04:30 Albumin/Globulin Ratio 1.1 (1.0-1.8) 05/09/17 04:30 Lipase 176 U/L (11-82) H 05/08/17 04:35 TSH 0.55 uIU/ml (0.34-5.60) 05/08/17 04:35 Urine Source [place] 05/07/17 13:45 Urine Color ORANGE 05/07/17 13:45 Urine Clarity CLOUDY (CLEAR) H 05/07/17 13:45 Urine pH 5.5 (4.6 - 8.0) 05/07/17 13:45 Ur Specific [place] 1.025 (1.005-1.030) 05/07/17 13:45 Urine Protein 100 mg/dL (NEGATIVE) H 05/07/17 13:45 Urine Glucose (UA) NEGATIVE mg/dL (NEGATIVE) 05/07/17 13:45 Urine Ketones TRACE mg/dL (NEGATIVE) 05/07/17 13:45 Urine Blood SMALL (NEGATIVE) H 05/07/17 13:45 Urine Nitrate NEGATIVE (NEGATIVE) 05/07/17 13:45 Urine Bilirubin MODERATE (NEGATIVE) H 05/07/17 13:45 Urine Urobilinogen 1.0 E.U./dL (0.2 - 1.0) 05/07/17 13:45 Ur Leukocyte Esterase NEGATIVE (NEGATIVE) 05/07/17 13:45 Urine RBC 5-10 /hpf (0-5) H 05/07/17 13:45 Urine WBC 0-2 /hpf (0-5) 05/07/17 13:45 Ur Epithelial Cells FEW /lpf (FEW) 05/07/17 13:45 Amorphous Sediment MODERATE URATES (NONE SEEN) 05/07/17 13:45 Urine Bacteria 1+ /hpf (NONE SEEN) H 05/07/17 13:45 Urine Mucus MODERATE /lpf (FEW) 05/07/17 13:45 Urine Test NEGATIVE 05/07/17 13:45 Valproic Acid 25.4 ug/mL (50.0-100.0) L 05/07/17 13:06 - Physical Exam Vitals and I&O: Vital Signs Temp 97.9 F 05/09/17 04:00 Pulse 82 05/09/17 06:59 Resp 20 05/09/17 06:59 BP 91/61 05/09/17 06:59 Pulse Ox 100 05/09/17 06:59 Intake & Output 05/08/17 05/09/17 05/09/17 18:59 06:59 18:59 Intake Total 550 1550 Output Total 250 250 Balance 300 1300 Weight (lbs) 63.078 kg 61.717 kg Intake: Intake, IV Amount 550 1550 Cefepime 1 gm In Dextrose 50 50 5% 50 ml @ 100 mls/hr IV Q12H [facility] Rx#:[id number] Dextrose 5% 1,000 ml @ 1000 100 mls/hr IV .Q10H [facility] Rx#:[id number] Vancomycin HCl 1.5 gm In 500 500 Sodium Chloride 0.9% 500 ml @ 250 mls/hr IV Q12H [facility] Rx#:[id number] Oral 0 Output: Urine 250 250 Stool 0 0 Active Medications: Current Medications Acetaminophen (Tylenol) 650 mg PO Q4H PRN PRN Reason: Mild Pain Or Fever above 101 Stop: 07/06/17 20:03 Acetaminophen/Hydrocodone Bitart ([place] 5mg/325mg) 1 tab PO Q6H PRN PRN Reason: Pain (Severe) Stop: 07/06/17 20:00 Al Hydrox/Mg Hydrox/Simethicone (Maalox) 30 ml PO Q6H PRN PRN Reason: Dyspepsia Stop: 07/06/17 20:03 Albuterol Sulfate (Albuterol 2.5mg/3ml Neb Ud) 2.5 mg HHN Q2HRT PRN PRN Reason: Shortness of Breath or Wheeze Stop: 07/06/17 20:03 Artificial Tears (Artificial Tears Ophth Soln) 1 drop EACH EYE BID [facility] Stop: 07/07/17 08:59 Last Admin: 05/08/17 17:00 Dose: 1 drop Divalproex Sodium (Depakote Sprinkle) 125 mg GT Q12HR [facility] PRN Reason: Protocol Stop: 07/07/17 11:59 Last Admin: 05/08/17 22:24 Dose: Not Given Docusate Sodium (Colace) 100 mg GT DAILY [facility] Stop: 07/07/17 12:59 Last Admin: 05/08/17 13:15 Dose: Not Given Ferrous Sulfate (Iron) 300 mg GT TID [facility] Stop: 07/07/17 13:59 Last Admin: 05/08/17 22:25 Dose: Not Given Heparin Sodium (Porcine) (Heparin) 5,000 units SUBQ Q12HR [facility] Stop: 07/07/17 20:59 Last Admin: 05/08/17 22:29 Dose: 5,000 units Cefepime HCl 1 gm/ Dextrose 50 mls @ 100 mls/hr IV Q12H [facility] Stop: 07/06/17 20:59 Last Infusion: 05/08/17 22:00 Dose: Infused Vancomycin HCl 1.5 gm/ Sodium (Chloride) 500 mls @ 250 mls/hr IV Q12H [facility] Stop: 07/07/17 11:59 Last Infusion: 05/09/17 01:25 Dose: Infused Dextrose (D5w) 1,000 mls @ 100 mls/hr IV .Q10H [facility] Stop: 07/06/17 20:14 Last Admin: 05/09/17 07:52 Dose: 100 mls/hr Insulin Aspart (Novolog) 0 units SUBQ ACHS [facility] PRN Reason: Protocol Stop: 07/06/17 20:59 Last Admin: 05/09/17 06:55 Dose: Not Given Ipratropium [place] (Atrovent Neb 0.5mg/2.5ml) 0.5 mg IH Q2HRT PRN PRN Reason: Shortness of Breath or Wheeze Stop: 07/06/17 20:03 Lactobacillus Rhamnosus (Culturelle) 1 each PO DAILY [facility] Stop: 07/08/17 08:59 Latanoprost (Xalatan 0.005% Ophth Soln) 1 drop RIGHT EYE HS [facility] Stop: 07/06/17 20:59 Last Admin: 05/08/17 22:27 Dose: 1 drop Lorazepam (Ativan) 1 mg GT Q6H PRN; Protocol PRN Reason: Anxiety Stop: 07/06/17 20:00 Lorazepam (Ativan) 1 mg IV Q4H PRN; Protocol PRN Reason: Seizure Stop: 07/06/17 20:03 Last Admin: 05/09/17 04:36 Dose: 1 mg Miscellaneous (Vancomycin Iv Per Pharmacy) 1 ea [facility] PRN [facility] Stop: 07/06/17 20:14 Miscellaneous (Vte Chemical Prophylaxis Screen/ Admission) 1 ea [facility] PRN PRN PRN Reason: PROTOCOL Stop: 07/07/17 12:25 Miscellaneous (Probiotic Screen) 1 ea [facility] PRN PRN PRN Reason: PROTOCOL Stop: 07/07/17 14:41 Ondansetron HCl (Zofran) 4 mg IV Q8H PRN PRN Reason: Nausea / Vomiting Stop: 07/06/17 20:03 Pantoprazole Sodium (Protonix) 40 mg GT QDAC KELSEY Stop: 07/07/17 08:59 Last Admin: 05/09/17 06:56 Dose: Not Given - Procedures Procedures: Procedures Procedure Code Date CHANGE FEEDING DEVICE IN UP INTEST TRACT, DOBBY LOOMS PEGGER APPROACH [id number] 05/07/17 CHANGE GASTROSTOMY TUBE 28403 05/07/17 Assessment/Plan - Problem List Patient Problems: All Active Problems Atypical chest pain (Active) R07.89 - Assessment Assessment: 37 YO FEMALE WITH G TUBE CHANGED LFTS IMPROVING HAS GALLSTONES 1.AWAIT UGI SERIES 2.AWAIT HIDA 3.FOLLOW LFTS 4.SURGERY EVAL PER HOSPITALIST FOR GALLSTONES
--- NOTE | 2017-05-09 08:12 | Diagnostic Imaging Report ---
Radionuclide biliary scan (HIDA scan) HISTORY: Pain 5.2 mCi technetium labeled biliary age and was using the exam. The exam demonstrates normal hepatic uptake and clearance. There is excretion into the common bile duct and into the small bowel. No definite gallbladder activity is seen. IMPRESSION: 1. No definite gallbladder activity identified. Findings may be associated with cystic duct obstruction. Clinical correlation is needed.
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
[2017-05-09] MEDS: Polyvinyl Alcohol Ophth Soln 15 mL Bottle EACH EYE SCH ×2 (09:21→16:20)
--- NOTE | 2017-05-09 10:47 | Diagnostic Imaging Report ---
Upper GI (Limited), gastrostomy tube placement HISTORY: Gastrostomy tube placement Water-soluble contrast was instilled through the patient's gastrostomy tube. There is opacification of the gastric lumen. IMPRESSION: 1. Confirmation of gastrostomy tube within the gastric lumen
--- NOTE | 2017-05-09 10:48 | Diagnostic Imaging Report ---
Portable chest x-ray HISTORY: Pneumonia Compared with the prior exam of 05/03/2017, there remains parenchymal density in the left lower lobe. Pneumonia and/or atelectasis cannot be excluded. IMPRESSION: 1. Persistent parenchymal density within the left lower lobe. Pneumonia and/or atelectasis cannot be excluded. Clinical correlation is needed.
--- NOTE | 2017-05-09 12:28 | Consultation ---
Consult Note - Consult Note Service Date: 05/09/17 Referring Physician: Lele Hess Consult Note: PHYSICIAN Consultation Note: Date of Admission: 05/07/17 Purpose of Consultation: Chief Complaint: Patient SAMIA PATE was admitted to location Intensive Care Unit with ALOC & SEPSIS. 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 Patient is a poor historian and unable to give any history. On initial evaluation, his temperature was 98F and WBC count was 25,000. Sepsis workup was performed. As patient has some elevated liver enzymes, ultrasound of the abdomen was performed which showed distended gallbladder with solitary stone. CT scan of the abdomen pelvis suggested markedly distended gallbladder with the gallbladder stone. HIDA scan was recommended and HIDA scan showed no activity of cooperative. Cholecystitis was suspected. Dr. Hess was called. He recommended an physician consultation. Past Medical History: THEORETICAL PHYSICIST shunt placement, traumatic brain injury. Diagnoses SEPSIS, UNSPECIFIED ORGANISM (05/07/17) ANEMIA, UNSPECIFIED (05/07/17) TYPE 2 DIABETES MELLITUS WITHOUT COMPLICATIONS (05/07/17) DEHYDRATION (05/07/17) HYPEROSMOLALITY AND HYPERNATREMIA (05/07/17) ACIDOSIS (05/07/17) HYPOKALEMIA (05/07/17) GASTROSTOMY MALFUNCTION (05/07/17) URINARY TRACT INFECTION, SITE NOT SPECIFIED (05/07/17) DYSPHAGIA, UNSPECIFIED (05/07/17) HEPATOMEGALY, NOT ELSEWHERE CLASSIFIED (05/07/17) ALTERED MENTAL STATUS, UNSPECIFIED (05/07/17) PERSONAL HISTORY OF TRAUMATIC BRAIN INJURY (05/07/17) PRESENCE OF CEREBROSPINAL FLUID DRAINAGE DEVICE (05/07/17) Allergies Allergy/AdvReac Type Severity Reaction Status Date / Time No Known Allergies Allergy Verified 05/07/17 13:05 Vital Signs Temp 97.5 F 05/09/17 08:00 Pulse 88 05/09/17 10:00 Resp 20 05/09/17 10:00 BP 92/66 05/09/17 10:00 Pulse Ox 100 05/09/17 10:00 Intake & Output 05/08/17 05/09/17 05/09/17 18:59 06:59 18:59 Intake Total 550 1550 50 Output Total 250 250 Balance 300 1300 50 Weight (lbs) 63.078 kg 61.717 kg Intake: Intake, IV Amount 550 1550 50 Cefepime 1 gm In Dextrose 50 50 50 5% 50 ml @ 100 mls/hr IV Q12H [facility] Rx#:[id number] Dextrose 5% 1,000 ml @ 1000 100 mls/hr IV .Q10H [facility] Rx#:[id number] Vancomycin HCl 1.5 gm In 500 500 Sodium Chloride 0.9% 500 ml @ 250 mls/hr IV Q12H [facility] Rx#:[id number] Oral 0 Output: Urine 250 250 Stool 0 0 Laboratory Results - last 24 hr 05/08/17 05/08/17 05/08/17 04:35 11:40 18:09 WBC RBC Hgb Hct MCV MCH MCHC Differential RDW Plt Count MPV Neutrophils % Lymphocytes % Monocytes % Eosinophils % Basophils % Sodium Potassium Chloride Carbon Dioxide Anion Gap BUN Creatinine Est GFR ( Amer) Est GFR (Non-Af Amer) BUN/Creatinine Ratio Glucose POC Glucose 137 H 116 H Calcium Phosphorus Magnesium Total Bilirubin Direct Bilirubin AST ALT Alkaline Phosphatase Total Protein Albumin Globulin Albumin/Globulin Ratio Lipase 176 H 05/08/17 05/09/17 05/09/17 22:03 04:30 04:30 WBC 14.4 H D RBC 4.21 Hgb 12.7 Hct 38.9 L MCV 92.3 MCH 30.1 MCHC Differential 32.6 RDW 13.2 Plt Count 177 MPV 9.6 Neutrophils % 73.1 Lymphocytes % 18.3 L Monocytes % 6.5 Eosinophils % 1.8 Basophils % 0.3 Sodium 157 H Potassium 3.2 L Chloride 122 H Carbon Dioxide 29.4 Anion Gap 8.8 BUN 15 Creatinine 0.7 Est GFR ( Amer) > 60.0 Est GFR (Non-Af Amer) > 60.0 BUN/Creatinine Ratio 21.4 Glucose 115 H POC Glucose 121 H Calcium 7.8 L Phosphorus 2.4 L Magnesium 2.1 Total Bilirubin 0.9 Direct Bilirubin 0.30 H AST 62 H ALT 48 Alkaline Phosphatase 62 Total Protein 6.1 Albumin 3.2 L Globulin 2.9 Albumin/Globulin Ratio 1.1 Lipase Home Medication Medication Instructions Recorded Type Divalproex Sodium [Depakote 125 mg GT Q12H 05/07/17 History Sprinkle] Docusate Sodium 1 tab GT DAILY 05/07/17 History Ferrous Sulfate [Ferosul] 7.5 ml GT TID 05/07/17 History Hydrocodone/Acetaminophen [[place] 1 tab PO Q6H PRN MDD 3 grams 05/07/17 History 325 mg-5 mg*] Latanoprost 0.005% Ophth Soln 1 drop RIGHT EYE HS 05/07/17 History [Xalatan 0.005% Ophth Soln] Lorazepam 1 mg GT Q6H PRN 05/07/17 History Metoclopramide [Reglan] 1 tab GT Q6H 05/07/17 History Omeprazole/Sodium Bicarbonate 1 tab GT DAILY 05/07/17 History [Omeprazole-Bicarb 20-1,100 Cap] Polyvinyl Alcohol Ophth Soln 1 drop EACH EYE BID 05/07/17 History [Artificial Tears Ophth Soln] QUEtiapine Fumarate [SEROquel] 25 mg GT BID 05/07/17 History Current Medications Generic Name Dose Route Start Last Admin Trade Name Freq PRN Reason Stop Dose Admin Acetaminophen 650 mg 05/07/17 20:04 Tylenol PO 07/06/17 20:03 Q4H PRN Mild Pain Or Fever above 101 Acetaminophen/Hydrocodone Bitart 1 tab 05/07/17 20:01 [place] 5mg/325mg PO 07/06/17 20:00 Q6H PRN Pain (Severe) Al Hydrox/Mg Hydrox/Simethicone 30 ml 05/07/17 20:04 Maalox PO 07/06/17 20:03 Q6H PRN Dyspepsia Albuterol Sulfate 2.5 mg 05/07/17 20:04 Albuterol 2.5mg/3ml Neb Ud HHN 07/06/17 20:03 Q2HRT PRN Shortness of Breath or Wheeze Artificial Tears 1 drop 05/08/17 09:00 05/09/17 09:21 Artificial Tears Ophth Soln EACH EYE 07/07/17 08:59 1 drop BID [facility] Administration Divalproex Sodium 125 mg 05/08/17 12:00 05/09/17 08:00 Depakote Sprinkle GT 07/07/17 11:59 Not Given Q12HR [facility] Protocol Docusate Sodium 100 mg 05/08/17 13:00 05/09/17 08:00 Colace GT 07/07/17 12:59 Not Given DAILY [facility] Ferrous Sulfate 300 mg 05/08/17 14:00 05/09/17 08:00 Iron GT 07/07/17 13:59 Not Given TID [facility] Heparin Sodium (Porcine) 5,000 units 05/08/17 21:00 05/08/17 22:29 Heparin SUBQ 07/07/17 20:59 5,000 units Q12HR [facility] Administration Cefepime HCl 1 gm/ Dextrose 50 mls @ 100 mls/hr 05/07/17 21:00 05/09/17 10:52 IV 07/06/17 20:59 Infused Q12H [facility] Infusion Vancomycin HCl 1.5 gm/ Sodium 500 mls @ 250 mls/hr 05/08/17 12:00 05/09/17 01 :25 Chloride IV 07/07/17 11:59 Infused Q12H [facility] Infusion Dextrose 1,000 mls @ 100 mls/hr 05/08/17 13:07 05/09/17 07:52 D5w IV 07/06/17 20:14 100 mls/hr .Q10H [facility] Administration Insulin Aspart 0 units 05/07/17 21:00 05/09/17 06:55 Novolog SUBQ 07/06/17 20:59 Not Given ACHS [facility] Protocol Ipratropium [place] 0.5 mg 05/07/17 20:04 Atrovent Neb 0.5mg/2.5ml IH 07/06/17 20:03 Q2HRT PRN Shortness of Breath or Wheeze Lactobacillus Rhamnosus 1 each 05/09/17 09:00 05/09/17 08:00 Culturelle PO 07/08/17 08:59 Not Given DAILY [facility] Latanoprost 1 drop 05/07/17 21:00 05/08/17 22:27 Xalatan 0.005% Ophth Soln RIGHT EYE 07/06/17 20:59 1 drop HS [facility] Administration Lorazepam 1 mg 05/07/17 20:01 Ativan GT 07/06/17 20:00 Q6H PRN Anxiety Protocol Lorazepam 1 mg 05/07/17 20:04 05/09/17 04:36 Ativan IV 07/06/17 20:03 1 mg Q4H PRN Administration Seizure Protocol Miscellaneous 1 ea 05/07/17 20:15 Vancomycin Iv Per Pharmacy 07/06/17 20:14 PRN [facility] Miscellaneous 1 05/08/17 12:26 Vte Chemical Prophylaxis Screen/ Admission 07/07/17 12:25 PRN PRN PROTOCOL Miscellaneous 1 05/08/17 14:42 Probiotic Screen 07/07/17 14:41 PRN PRN PROTOCOL Ondansetron HCl 4 mg 05/07/17 20:04 Zofran IV 07/06/17 20:03 Q8H PRN Nausea / Vomiting Pantoprazole Sodium 40 mg 05/09/17 07:30 05/09/17 06:56 Protonix GT 07/07/17 08:59 Not Given QDAC [facility] Review of Systems: A 12 point ROS was reviewed with the pertinent positive and negatives noted in the HPI. Social History Smoking Status Never smoker Drug Use No Alcohol Use No Family Medical History Family Medical History Start: 05/07/17 20: 12 Freq: ONCE Status: Active Document 05/07/17 20:20 AMPAROWILFRIDO (Rec: 05/07/17 22:43 [facility]- [id number]) Family Medical History Father DM Physical Exam: General: Comfortable, cachectic. HEENT: Head: No open wound. Oral cavity: Moist, pink tongue. Eyes: Pupils PERRLA, EOMI. No pallor, no icterus. Face: Symmetrical. Neck: Supple, no JVD. Cardio: S1 and S2 within normal limits regular rhythm. Respiratory: Vesicular breath sound, no crackles no wheezing. Decreased breath sound at the bases. Abdominal: Soft, nondistended, bowel sounds present. Mild tenderness present in the lower abdomen. Genital/Urinary: Deferred. Extremities: No cyanosis, no clubbing, no edema. Pulses are palpable in all 4 limbs. Neurological: Lethargic. Able to move all 4 activities. Assessment: 1. Acute cholecytitis. 2. THEORETICAL PHYSICIST shunt 3. Traumatic brain injury. 4. Dehydration. 5. Altered mental status, due to metabolic encephalopathy 6. Hypernatremia. Plan: Conitnue the same antibiotics, cefepime and vanco IV. Patient is stable enough to go for the surgery from ID point of view. Depending on the further information, decide further therapy. I have discussed with the patient's father in detail. Thank you, Dr Hess and Dr Osei for involving me in taking care of this patient. Signed, Matthew Fernández M.D. [id number]
[2017-05-09] MEDS: Vancomycin HCl 1.5 GM in Sodium Chloride 0.9% 500 ML IV SCH (12:44)
--- NOTE | 2017-05-09 12:47 | Internal Medicine Prog Note ---
Internal Medicine Subjective - Subjective Service Date: 05/09/17 Patient seen and examined:: with staff Patient is:: awake, non-interactive Per staff patient has:: no adverse event Internal Medicine Objective - Results Result Diagrams: 05/09/17 04:30 05/09/17 04:30 Recent Labs: Laboratory Last Values WBC 14.4 Th/cmm (4.8-10.8) H D 05/09/17 04:30 RBC 4.21 Mil/cmm (3.80-5.10) 05/09/17 04:30 Hgb 12.7 gm/dL (12-16) 05/09/17 04:30 Hct 38.9 % (41.0-60) L 05/09/17 04:30 MCV 92.3 fl (81-100) 05/09/17 04:30 MCH 30.1 pg (27.0-31.0) 05/09/17 04:30 MCHC Differential 32.6 pg (28.0-36.0) 05/09/17 04:30 RDW 13.2 % (11.5-20.0) 05/09/17 04:30 Plt Count 177 Th/cmm (150-400) 05/09/17 04:30 MPV 9.6 fl 05/09/17 04:30 Neutrophils % 73.1 % (40.0-80.0) 05/09/17 04:30 Band Neutrophils % 4 % (0-10) 05/08/17 04:35 Lymphocytes % 18.3 % (20.0-50.0) L 05/09/17 04:30 Monocytes % 6.5 % (2.0-10.0) 05/09/17 04:30 Eosinophils % 1.8 % (0.0-5.0) 05/09/17 04:30 Basophils % 0.3 % (0.0-2.0) 05/09/17 04:30 Neutrophils (Manual) 69 % (40-80) 05/08/17 04:35 Lymphocytes 19 % (20-50) L 05/08/17 04:35 Monocytes 5 % (2-10) 05/08/17 04:35 Eosinophils 2 % (0-5) 05/08/17 04:35 Basophils 1 % (0-3) 05/08/17 04:35 Platelet Estimate ADEQUATE (NORMAL) 05/07/17 12:58 Platelet Morphology NORMAL (NORMAL) 05/07/17 12:58 RBC Morph Micro Appear NORMAL (NORMAL) 05/07/17 12:58 PT 12.0 SECONDS (9.5-11.5) H 05/07/17 12:58 INR 1.14 (0.5-1.4) 05/07/17 12:58 PTT (Actin FS) 24.5 SECONDS (26.0-38.0) L 05/07/17 12:58 Sodium 157 mEq/L (136-145) H 05/09/17 04:30 Potassium 3.2 mEq/L (3.5-5.1) L 05/09/17 04:30 Chloride 122 mEq/L (98-107) H 05/09/17 04:30 Carbon Dioxide 29.4 mEq/L (21.0-31.0) 05/09/17 04:30 Anion Gap 8.8 (7.0-16.0) 05/09/17 04:30 BUN 15 mg/dL (7-25) 05/09/17 04:30 Creatinine 0.7 mg/dL (0.6-1.2) 05/09/17 04:30 Est GFR ( Amer) > 60.0 ml/min (>90) 05/09/17 04:30 Est GFR (Non-Af Amer) > 60.0 ml/min 05/09/17 04:30 BUN/Creatinine Ratio 21.4 05/09/17 04:30 Glucose 115 mg/dL (70-105) H 05/09/17 04:30 POC Glucose 104 MG/DL (70 - 105) 05/09/17 11:25 Hemoglobin A1c % 5.3 % (4.0-6.0) 05/07/17 13:59 Whole Bld Lactic Acid 2.01 mmol/L (0.60-1.99) H* 05/07/17 15:03 Calcium 7.8 mg/dL (8.6-10.3) L 05/09/17 04:30 Phosphorus 2.4 mg/dL (2.5-5.0) L 05/09/17 04:30 Magnesium 2.1 mg/dL (1.9-2.7) 05/09/17 04:30 Total Bilirubin 0.9 mg/dL (0.3-1.0) 05/09/17 04:30 Direct Bilirubin 0.30 mg/dL (0.0-0.2) H 05/09/17 04:30 AST 62 U/L (13-39) H 05/09/17 04:30 ALT 48 U/L (7-52) 05/09/17 04:30 Alkaline Phosphatase 62 U/L (34-104) 05/09/17 04:30 Ammonia 54 umol/L (16-53) H 05/08/17 04:35 Creatine Kinase 41 U/L (30-223) 05/07/17 12:58 Troponin I 0.06 ng/mL (0.01-0.05) H D 05/07/17 21:01 Total Protein 6.1 gm/dL (6.0-8.3) 05/09/17 04:30 Albumin 3.2 gm/dL (3.7-5.3) L 05/09/17 04:30 Globulin 2.9 gm/dL 05/09/17 04:30 Albumin/Globulin Ratio 1.1 (1.0-1.8) 05/09/17 04:30 Lipase 176 U/L (11-82) H 05/08/17 04:35 TSH 0.55 uIU/ml (0.34-5.60) 05/08/17 04:35 Urine Source [place] 05/07/17 13:45 Urine Color ORANGE 05/07/17 13:45 Urine Clarity CLOUDY (CLEAR) H 05/07/17 13:45 Urine pH 5.5 (4.6 - 8.0) 05/07/17 13:45 Ur Specific [place] 1.025 (1.005-1.030) 05/07/17 13:45 Urine Protein 100 mg/dL (NEGATIVE) H 05/07/17 13:45 Urine Glucose (UA) NEGATIVE mg/dL (NEGATIVE) 05/07/17 13:45 Urine Ketones TRACE mg/dL (NEGATIVE) 05/07/17 13:45 Urine Blood SMALL (NEGATIVE) H 05/07/17 13:45 Urine Nitrate NEGATIVE (NEGATIVE) 05/07/17 13:45 Urine Bilirubin MODERATE (NEGATIVE) H 05/07/17 13:45 Urine Urobilinogen 1.0 E.U./dL (0.2 - 1.0) 05/07/17 13:45 Ur Leukocyte Esterase NEGATIVE (NEGATIVE) 05/07/17 13:45 Urine RBC 5-10 /hpf (0-5) H 05/07/17 13:45 Urine WBC 0-2 /hpf (0-5) 05/07/17 13:45 Ur Epithelial Cells FEW /lpf (FEW) 05/07/17 13:45 Amorphous Sediment MODERATE URATES (NONE SEEN) 05/07/17 13:45 Urine Bacteria 1+ /hpf (NONE SEEN) H 05/07/17 13:45 Urine Mucus MODERATE /lpf (FEW) 05/07/17 13:45 Urine Test NEGATIVE 05/07/17 13:45 Valproic Acid 25.4 ug/mL (50.0-100.0) L 05/07/17 13:06 - Physical Exam Vitals and I&O: Vital Signs Temp 97.5 F 05/09/17 08:00 Pulse 94 05/09/17 11:00 Resp 26 05/09/17 11:00 BP 94/64 05/09/17 11:00 Pulse Ox 100 05/09/17 11:00 Intake & Output 05/08/17 05/09/17 05/09/17 18:59 06:59 18:59 Intake Total 550 1550 50 Output Total 250 250 Balance 300 1300 50 Weight (lbs) 139 lb 1 oz 136 lb 1 oz Intake: Intake, IV Amount 550 1550 50 Cefepime 1 gm In Dextrose 50 50 50 5% 50 ml @ 100 mls/hr IV Q12H [facility] Rx#:[id number] Dextrose 5% 1,000 ml @ 1000 100 mls/hr IV .Q10H [facility] Rx#:[id number] Vancomycin HCl 1.5 gm In 500 500 Sodium Chloride 0.9% 500 ml @ 250 mls/hr IV Q12H [facility] Rx#:[id number] Oral 0 Output: Urine 250 250 Stool 0 0 Active Medications: Current Medications Acetaminophen (Tylenol) 650 mg PO Q4H PRN PRN Reason: Mild Pain Or Fever above 101 Stop: 07/06/17 20:03 Acetaminophen/Hydrocodone Bitart ([place] 5mg/325mg) 1 tab PO Q6H PRN PRN Reason: Pain (Severe) Stop: 07/06/17 20:00 Al Hydrox/Mg Hydrox/Simethicone (Maalox) 30 ml PO Q6H PRN PRN Reason: Dyspepsia Stop: 07/06/17 20:03 Albuterol Sulfate (Albuterol 2.5mg/3ml Neb Ud) 2.5 mg HHN Q2HRT PRN PRN Reason: Shortness of Breath or Wheeze Stop: 07/06/17 20:03 Artificial Tears (Artificial Tears Ophth Soln) 1 drop EACH EYE BID [facility] Stop: 07/07/17 08:59 Last Admin: 05/09/17 09:21 Dose: 1 drop Divalproex Sodium (Depakote Sprinkle) 125 mg GT Q12HR [facility] PRN Reason: Protocol Stop: 07/07/17 11:59 Last Admin: 05/09/17 08:00 Dose: Not Given Docusate Sodium (Colace) 100 mg GT DAILY [facility] Stop: 07/07/17 12:59 Last Admin: 05/09/17 08:00 Dose: Not Given Ferrous Sulfate (Iron) 300 mg GT TID [facility] Stop: 07/07/17 13:59 Last Admin: 05/09/17 08:00 Dose: Not Given Heparin Sodium (Porcine) (Heparin) 5,000 units SUBQ Q12HR [facility] Stop: 07/07/17 20:59 Last Admin: 05/08/17 22:29 Dose: 5,000 units Cefepime HCl 1 gm/ Dextrose 50 mls @ 100 mls/hr IV Q12H [facility] Stop: 07/06/17 20:59 Last Infusion: 05/09/17 10:52 Dose: Infused Vancomycin HCl 1.5 gm/ Sodium (Chloride) 500 mls @ 250 mls/hr IV Q12H [facility] Stop: 07/07/17 11:59 Last Admin: 05/09/17 12:44 Dose: 250 mls/hr Dextrose (D5w) 1,000 mls @ 100 mls/hr IV .Q10H [facility] Stop: 07/06/17 20:14 Last Admin: 05/09/17 07:52 Dose: 100 mls/hr Potassium Phosphate 30 mmole/ (Sodium Chloride) 260 mls @ 65 mls/hr IV X1 ONE Stop: 05/09/17 17:59 Insulin Aspart (Novolog) 0 units SUBQ ACHS [facility] PRN Reason: Protocol Stop: 07/06/17 20:59 Last Admin: 05/09/17 11:49 Dose: Not Given Ipratropium [place] (Atrovent Neb 0.5mg/2.5ml) 0.5 mg IH Q2HRT PRN PRN Reason: Shortness of Breath or Wheeze Stop: 07/06/17 20:03 Lactobacillus Rhamnosus (Culturelle) 1 each PO DAILY [facility] Stop: 07/08/17 08:59 Last Admin: 05/09/17 08:00 Dose: Not Given Latanoprost (Xalatan 0.005% Oph Soln) 1 drop RIGHT EYE HS [facility] Stop: 07/06/17 20:59 Last Admin: 05/08/17 22:27 Dose: 1 drop Lorazepam (Ativan) 1 mg GT Q6H PRN; Protocol PRN Reason: Anxiety Stop: 07/06/17 20:00 Lorazepam (Ativan) 1 mg IV Q4H PRN; Protocol PRN Reason: Seizure Stop: 07/06/17 20:03 Last Admin: 05/09/17 04:36 Dose: 1 mg Midodrine (Proamatine) 5 mg PO TID [facility] Stop: 07/08/17 13:59 Miscellaneous (Vancomycin Iv Per Pharmacy) 1 ea MC PRN [facility] Stop: 07/06/17 20:14 Miscellaneous (Vte Chemical Prophylaxis Screen/ Admission) 1 ea PRN PRN PRN Reason: PROTOCOL Stop: 07/07/17 12:25 Miscellaneous (Probiotic Screen) 1 ea PRN PRN PRN Reason: PROTOCOL Stop: 07/07/17 14:41 Ondansetron HCl (Zofran) 4 mg IV Q8H PRN PRN Reason: Nausea / Vomiting Stop: 07/06/17 20:03 Pantoprazole Sodium (Protonix) 40 mg GT QDAC [facility] Stop: 07/07/17 08:59 Last Admin: 05/09/17 06:56 Dose: Not Given General: weak, alert HEENT: NC/AT, PERRLA Neck: Supple Lungs: CTAB Cardiovascular: RRR, Normal S1, Normal S2 Abdomen: soft, non-tender, non-distended Extremities: excoriation - Procedures Procedures: Procedures Procedure Code Date CHANGE FEEDING DEVICE IN UP INTEST TRACT, TALENT AGENT APPROACH [id number] 05/07/17 CHANGE GASTROSTOMY TUBE 29915 05/07/17 Internal Medicine Assmt/Plan - Assessment Assessment: SEPSIS ALOC HYPERNATREMIA HYPOKALEMIA GT MALFUNCTION ACUTE UTI - Plan Plan: IVF FOR HYDRATION EMPIRIC IV ANTIBIOTICS MONITOR ELECTROLYTES CONTINUE CURRENT PLAN OF CARE Nutritional Asmnt/Malnutr-PDOC - Dietary Evaluation Malnutrition Findings (Please click <Entered> for more info): Nutritional Asmnt/Malnutrition Start: 05/08/17 11: 46 Text: Status: Complete Freq: Document 05/08/17 11:46 GSUN (Rec: 05/08/17 12:08 GSUN [id number]) Nutritional Asmnt/Malnutrition Patient General Information Nutritional Screening High Risk Screening Diagnosis ER: dehydration, possible sepsis with leukocytosis, DM Pertinent Medical Hx/Surgical Hx ER report: PUD/GERD, trauma brain injury, chronic anemia Subjective Information 37 year old female from SNF. Pt was awake, non-verbal, family at bedside. GI Dr. Ch arrived during visit to replace g-tube. Confirmed with RN and pt's chart, pt is tube feeding dependent with pureed [place] for oral gratification. No muscle fat wasting noted. Current Diet Order/ Nutrition Support Currently no diet order. Pertinent Medications D5w, Iron, Novolog, Vancomycin , Zofran, Protonix Pertinent Labs 05/07: A1c 5.3 05/08: sodium 163H, potassium 3 .4L, glucose 143H, total bilirubin 1.3H Nutritional Hx/Data Height 5 ft 7 in Height (Calculated Centimeters) 170.2 Current Weight (lbs) 139 lb Weight (Calculated Kilograms) 63.0 Weight (Calculated Grams) 24661.3 [place] Body Weight 135 Weight Status Approriate GI Symptoms Difficult in: Chewing Swallowing Food Allergies No Cultural/Ethnic/Sabianism Belief [facility]: pureed with [place] for oral gratification. EN two trista bolus 5 cans per day, providing 1185ml and 2375kcal. Usual diet at home Refer to above. Skin Integrity/Comment: Robin 13. LEft arm non- pitting 3+. Estimated Nutritional Goals BEE in Kcals: Using Current wt Calories/Kcals/Kg CBW 139lb/63.2kg Kcals Calculated 1580-2212kcal (25-35kcal/kg, possible sepsis and 2375kcal at SNF) Protein: Using Current wt Protein Calculated 63-82g (1-1.3g/kg) Fluid: ml 1580-2212ml (1ml/kcal) Nutritional Problem 1. Problem Problem Increased kcal and prot needs related to Etiology possible hypermetabolic state, unknown aeb Signs/Symptoms: possible sepsis, pt receieves 2375kcal at [facility] Intervention/Recommendation Comments 1. Recommend Nutren 2.0 as pt toelrates this formula at [facility] at 40ml/hr x 24hrs, providing 960ml total volume, 1920kcal, and 81g protein. 2. Monitor glucose levels, if remains consistantly high, recommend Diabetisource at 70ml/hr x 24hrs, providing 1680ml total volume, 2016kcal, and 101g protein. 3. Recommend pureed [place] thick food items for oral gratification if needed as pt tolerates at [facility]. Expected Outcomes/Goals Expected Outcomes/Goals 1. Pt to meet 100% of estimated nutritional needs on tube feeding with tolerance.
[2017-05-09] MEDS ORDERED: Potassium Phosphate 30 MMOLE in Sodium Chloride 0.9% 250 ML IV ONE (14:00)
[2017-05-10] MEDS: Vancomycin HCl 1.5 GM in Sodium Chloride 0.9% 500 ML IV SCH (00:05)
[2017-05-10 05:05] LABS: % BASOPHILS 0.3 % (0.0-2.0); % LYMPHOCYTES 24.4 % (20.0-50.0); % MONOCYTES 8.7 % (2.0-10.0); % NEUTROPHILS 64.6 % (40.0-80.0); HEMOGLOBIN 11.6 gm/dL (12-16); MEAN CORPUSCULAR HEMOGLOBIN 30.9 pg (27.0-31.0); MEAN CORPUSCULAR HGB CONC 33.9 pg (28.0-36.0); MEAN PLATELET VOLUME 10.4 fl; PLATELET COUNT 168 Th/cmm (150-400); RED BLOOD COUNT 3.76 Mil/cmm (3.80-5.10); RED CELL DISTRIBUTION WIDTH 13.2 % (11.5-20.0)
[2017-05-10 05:15] LABS: ANION GAP 8.2 (7.0-16.0); BUN - UREA NITROGEN 8 mg/dL (7-25); BUN/CREATININE RATIO 11.4; CALCIUM SERUM 6.8 mg/dL (8.6-10.3); CARBON DIOXIDE 29.7 mEq/L (21.0-31.0); CHLORIDE 117 mEq/L (98-107); CREATININE - SERUM 0.7 mg/dL (0.6-1.2); GLUCOSE 99 mg/dL (70-105); HEMATOCRIT 34.3 % (41.0-60); MAGNESIUM 2.1 mg/dL (1.9-2.7); PHOSPHOROUS 3.6 mg/dL (2.5-5.0); SODIUM SERUM 152 mEq/L (136-145); WHITE BLOOD COUNT 9.2 Th/cmm (4.8-10.8)
[2017-05-10 05:23] LABS: POTASSIUM SERUM 2.9 mEq/L (3.5-5.1)
[2017-05-10] MEDS: Pantoprazole 40 mg/Packet GT SCH (06:40)
[2017-05-10] MEDS: INSULIN ASPART, RECOMBINANT 100 UNITS/ML SUBQ SCH ×2 (06:43→11:14)
[2017-05-10] MEDS: Docusate Sodium 100 mg/10 mL UD GT SCH (08:45)
[2017-05-10] MEDS: Ferrous Sulfate 300 MG/5 ML UDC GT SCH ×3 (08:45→20:49)
[2017-05-10] MEDS: Lactobacillus Rhamnosus 10 Billion CFU Capsule PO SCH (08:46)
[2017-05-10] MEDS: Polyvinyl Alcohol Ophth Soln 15 mL Bottle EACH EYE SCH ×2 (08:54→17:16)
[2017-05-10] MEDS ORDERED: Potassium Chloride 40 MEQ, Lidocaine 1% 20mL Vial 25 MG in Sodium Chloride 0.9% 250 ML IV ONE (10:00)
--- NOTE | 2017-05-10 13:16 | GI Progress Note ---
Subjective - Review of Systems Subjective: NO EVENTS ELVIE TUBE FEEDS Objective - Results Result Diagrams: 05/10/17 04:06 05/10/17 04:06 Recent Labs: Laboratory Last Values WBC 9.2 Th/cmm (4.8-10.8) D 05/10/17 04:06 RBC 3.76 Mil/cmm (3.80-5.10) L 05/10/17 04:06 Hgb 11.6 gm/dL (12-16) L 05/10/17 04:06 Hct 34.3 % (41.0-60) L D 05/10/17 04:06 MCV 91.0 fl (81-100) 05/10/17 04:06 MCH 30.9 pg (27.0-31.0) 05/10/17 04:06 MCHC Differential 33.9 pg (28.0-36.0) 05/10/17 04:06 RDW 13.2 % (11.5-20.0) 05/10/17 04:06 Plt Count 168 Th/cmm (150-400) 05/10/17 04:06 MPV 10.4 fl 05/10/17 04:06 Neutrophils % 64.6 % (40.0-80.0) 05/10/17 04:06 Band Neutrophils % 4 % (0-10) 05/08/17 04:35 Lymphocytes % 24.4 % (20.0-50.0) 05/10/17 04:06 Monocytes % 8.7 % (2.0-10.0) 05/10/17 04:06 Eosinophils % 2.0 % (0.0-5.0) 05/10/17 04:06 Basophils % 0.3 % (0.0-2.0) 05/10/17 04:06 Neutrophils (Manual) 69 % (40-80) 05/08/17 04:35 Lymphocytes 19 % (20-50) L 05/08/17 04:35 Monocytes 5 % (2-10) 05/08/17 04:35 Eosinophils 2 % (0-5) 05/08/17 04:35 Basophils 1 % (0-3) 05/08/17 04:35 Platelet Estimate ADEQUATE (NORMAL) 05/07/17 12:58 Platelet Morphology NORMAL (NORMAL) 05/07/17 12:58 RBC Morph Micro Appear NORMAL (NORMAL) 05/07/17 12:58 PT 12.0 SECONDS (9.5-11.5) H 05/07/17 12:58 INR 1.14 (0.5-1.4) 05/07/17 12:58 PTT (Actin FS) 24.5 SECONDS (26.0-38.0) L 05/07/17 12:58 Sodium 152 mEq/L (136-145) H 05/10/17 04:06 Potassium 2.9 mEq/L (3.5-5.1) L* 05/10/17 04:06 Chloride 117 mEq/L (98-107) H 05/10/17 04:06 Carbon Dioxide 29.7 mEq/L (21.0-31.0) 05/10/17 04:06 Anion Gap 8.2 (7.0-16.0) 05/10/17 04:06 BUN 8 mg/dL (7-25) 05/10/17 04:06 Creatinine 0.7 mg/dL (0.6-1.2) 05/10/17 04:06 Est GFR ( Amer) > 60.0 ml/min (>90) 05/10/17 04:06 Est GFR (Non-Af Amer) > 60.0 ml/min 05/10/17 04:06 BUN/Creatinine Ratio 11.4 05/10/17 04:06 Glucose 99 mg/dL (70-105) 05/10/17 04:06 POC Glucose 102 MG/DL (70 - 105) 05/10/17 11:07 Hemoglobin A1c % 5.3 % (4.0-6.0) 05/07/17 13:59 Whole Bld Lactic Acid 2.01 mmol/L (0.60-1.99) H* 05/07/17 15:03 Calcium 6.8 mg/dL (8.6-10.3) L 05/10/17 04:06 Phosphorus 3.6 mg/dL (2.5-5.0) 05/10/17 04:06 Magnesium 2.1 mg/dL (1.9-2.7) 05/10/17 04:06 Total Bilirubin 0.9 mg/dL (0.3-1.0) 05/09/17 04:30 Direct Bilirubin 0.30 mg/dL (0.0-0.2) H 05/09/17 04:30 AST 62 U/L (13-39) H 05/09/17 04:30 ALT 48 U/L (7-52) 05/09/17 04:30 Alkaline Phosphatase 62 U/L (34-104) 05/09/17 04:30 Ammonia 54 umol/L (16-53) H 05/08/17 04:35 Creatine Kinase 41 U/L (30-223) 05/07/17 12:58 Troponin I 0.06 ng/mL (0.01-0.05) H D 05/07/17 21:01 Total Protein 6.1 gm/dL (6.0-8.3) 05/09/17 04:30 Albumin 3.2 gm/dL (3.7-5.3) L 05/09/17 04:30 Globulin 2.9 gm/dL 05/09/17 04:30 Albumin/Globulin Ratio 1.1 (1.0-1.8) 05/09/17 04:30 Lipase 176 U/L (11-82) H 05/08/17 04:35 Vitamin B12 882 pg/mL (211-946) 05/08/17 04:35 Folic Acid 6.0 ng/mL (>3.0) 05/08/17 04:35 TSH 0.55 uIU/ml (0.34-5.60) 05/08/17 04:35 Urine Source [place] 05/07/17 13:45 Urine Color ORANGE 05/07/17 13:45 Urine Clarity CLOUDY (CLEAR) H 05/07/17 13:45 Urine pH 5.5 (4.6 - 8.0) 05/07/17 13:45 Ur Specific [place] 1.025 (1.005-1.030) 05/07/17 13:45 Urine Protein 100 mg/dL (NEGATIVE) H 05/07/17 13:45 Urine Glucose (UA) NEGATIVE mg/dL (NEGATIVE) 05/07/17 13:45 Urine Ketones TRACE mg/dL (NEGATIVE) 05/07/17 13:45 Urine Blood SMALL (NEGATIVE) H 05/07/17 13:45 Urine Nitrate NEGATIVE (NEGATIVE) 05/07/17 13:45 Urine Bilirubin MODERATE (NEGATIVE) H 05/07/17 13:45 Urine Urobilinogen 1.0 E.U./dL (0.2 - 1.0) 05/07/17 13:45 Ur Leukocyte Esterase NEGATIVE (NEGATIVE) 05/07/17 13:45 Urine RBC 5-10 /hpf (0-5) H 05/07/17 13:45 Urine WBC 0-2 /hpf (0-5) 05/07/17 13:45 Ur Epithelial Cells FEW /lpf (FEW) 05/07/17 13:45 Amorphous Sediment MODERATE URATES (NONE SEEN) 05/07/17 13:45 Urine Bacteria 1+ /hpf (NONE SEEN) H 05/07/17 13:45 Urine Mucus MODERATE /lpf (FEW) 05/07/17 13:45 Urine Test NEGATIVE 05/07/17 13:45 Vancomycin Trough 39.1 ug/mL (10-20) H 05/10/17 11:00 Valproic Acid 25.4 ug/mL (50.0-100.0) L 05/07/17 13:06 - Physical Exam Vitals and I&O: Vital Signs Temp 97.6 F 05/10/17 08:00 Pulse 92 05/10/17 10:00 Resp 21 05/10/17 10:00 BP 94/59 05/10/17 10:00 Pulse Ox 98 05/10/17 10:00 Intake & Output 05/09/17 05/10/17 05/10/17 18:59 06:59 18:59 Intake Total 710 1820 50 Output Total 650 700 Balance 60 1120 50 Weight (lbs) 61.717 kg 61.008 kg Intake: Intake, IV Amount 550 1550 50 Cefepime 1 gm In Dextrose 50 50 50 5% 50 ml @ 100 mls/hr IV Q12H [facility] Rx#:[id number] Dextrose 5% 1,000 ml @ 1000 100 mls/hr IV .Q10H [facility] Rx#:[id number] Vancomycin HCl 1.5 gm In 500 500 Sodium Chloride 0.9% 500 ml @ 250 mls/hr IV Q12H [facility] Rx#:[id number] Oral 30 Tube Feeding 60 240 Other 100 Output: Urine 650 700 Other: # Bowel Movements 2 2 Stool Characteristics Soft Brown Active Medications: Current Medications Acetaminophen (Tylenol) 650 mg PO Q4H PRN PRN Reason: Mild Pain Or Fever above 101 Stop: 07/06/17 20:03 Acetaminophen/Hydrocodone Bitart ([place] 5mg/325mg) 1 tab PO Q6H PRN PRN Reason: Pain (Severe) Stop: 07/06/17 20:00 Al Hydrox/Mg Hydrox/Simethicone (Maalox) 30 ml PO Q6H PRN PRN Reason: Dyspepsia Stop: 07/06/17 20:03 Albuterol Sulfate (Albuterol 2.5mg/3ml Neb Ud) 2.5 mg HHN Q2HRT PRN PRN Reason: Shortness of Breath or Wheeze Stop: 07/06/17 20:03 Artificial Tears (Artificial Tears Ophth Soln) 1 drop EACH EYE BID [facility] Stop: 07/07/17 08:59 Last Admin: 05/10/17 08:54 Dose: 1 drop Divalproex Sodium (Depakote Sprinkle) 125 mg GT Q12HR [facility] PRN Reason: Protocol Stop: 07/07/17 11:59 Last Admin: 05/10/17 08:45 Dose: 125 mg Docusate Sodium (Colace) 100 mg GT DAILY [facility] Stop: 07/07/17 12:59 Last Admin: 05/10/17 08:45 Dose: 100 mg Ferrous Sulfate (Iron) 300 mg GT TID [facility] Stop: 07/07/17 13:59 Last Admin: 05/10/17 08:45 Dose: 300 mg Heparin Sodium (Porcine) (Heparin) 5,000 units SUBQ Q12HR [facility] Stop: 07/07/17 20:59 Last Admin: 05/10/17 08:46 Dose: 5,000 units Cefepime HCl 1 gm/ Dextrose 50 mls @ 100 mls/hr IV Q12H [facility] Stop: 07/06/17 20:59 Last Infusion: 05/10/17 09:17 Dose: Infused Potassium Chloride 40 meq/Lidocaine HCl 25 mg/ Sodium Chloride 272.5 mls @ 68 mls/hr IV X1 ONE Stop: 05/10/17 14:00 Last Admin: 05/10/17 10:39 Dose: 68 mls/hr Vancomycin HCl 1.25 gm/ Sodium (Chloride) 250 mls @ 165 mls/hr IV Q12H [facility] Stop: 07/09/17 20:59 Dextrose (D5w) 1,000 mls @ 80 mls/hr IV .[id number] [facility] Stop: 07/06/17 20:14 Insulin Aspart (Novolog) 0 units SUBQ DAILY [facility] PRN Reason: Protocol Stop: 07/10/17 08:59 Ipratropium [place] (Atrovent Neb 0.5mg/2.5ml) 0.5 mg IH Q2HRT PRN PRN Reason: Shortness of Breath or Wheeze Stop: 07/06/17 20:03 Lactobacillus Rhamnosus (Culturelle) 1 each PO DAILY [facility] Stop: 07/08/17 08:59 Last Admin: 05/10/17 08:46 Dose: 1 each Latanoprost (Xalatan 0.005% Oph Soln) 1 drop RIGHT EYE HS [facility] Stop: 07/06/17 20:59 Last Admin: 05/09/17 21:00 Dose: 1 drop Lorazepam (Ativan) 1 mg GT Q6H PRN; Protocol PRN Reason: Anxiety Stop: 07/06/17 20:00 Lorazepam (Ativan) 1 mg IV Q4H PRN; Protocol PRN Reason: Seizure Stop: 07/06/17 20:03 Last Admin: 05/10/17 10:41 Dose: 1 mg Midodrine (Proamatine) 10 mg PO TID [facility] Stop: 07/08/17 13:59 Miscellaneous (Vancomycin Iv Per Pharmacy) 1 ea PRN [facility] Stop: 07/06/17 20:14 Miscellaneous (Vte Chemical Prophylaxis Screen/ Admission) 1 ea PRN PRN PRN Reason: PROTOCOL Stop: 07/07/17 12:25 Miscellaneous (Probiotic Screen) 1 ea PRN PRN PRN Reason: PROTOCOL Stop: 07/07/17 14:41 Ondansetron HCl (Zofran) 4 mg IV Q8H PRN PRN Reason: Nausea / Vomiting Stop: 07/06/17 20:03 Pantoprazole Sodium (Protonix) 40 mg GT QDAC [facility] Stop: 07/07/17 08:59 Last Admin: 05/10/17 06:40 Dose: 40 mg - Procedures Procedures: Procedures Procedure Code Date CHANGE FEEDING DEVICE IN UP INTEST TRACT, CHEMIST INSTRUMENTATION APPROACH [id number] 05/07/17 CHANGE GASTROSTOMY TUBE 54176 05/07/17 Assessment/Plan - Problem List Patient Problems: All Active Problems Atypical chest pain (Active) R07.89 - Assessment Assessment: 37 YO FEMALE WITH G TUBE CHANGED KUB SHOWED TUBE IN THE STOMACH AND CURRENTLY ELVIE TUBE FEEDS LFTS IMPROVING HAS GALLSTONES AND HIDA IS POSITIVE 1.MARS PER SURGEON 2.FOLLOW LFTS 3.CONT TUBE FEEDS ELVIE; HAVE PODIATRY PROFESSOR SEE PT FOR FEEDING GOALS 4.WILL SEE NEEDED; CALL IF QUESTIONS
[2017-05-11 05:04] LABS: NEUTROPHILE ABSOLUTE 4.7 Th/cmm (1.8-8.0)
[2017-05-11 05:09] LABS: % BASOPHILS 0.9 % (0.0-2.0); % EOSINOPHILS 2.7 % (0.0-5.0); % LYMPHOCYTES 28.9 % (20.0-50.0); % MONOCYTES 10.9 % (2.0-10.0); % NEUTROPHILS 56.6 % (40.0-80.0); HEMATOCRIT 35.8 % (41.0-60); HEMOGLOBIN 11.9 gm/dL (12-16); MEAN CELL VOLUME 91.6 fl (81-100); MEAN CORPUSCULAR HEMOGLOBIN 30.6 pg (27.0-31.0); MEAN CORPUSCULAR HGB CONC 33.4 pg (28.0-36.0); MEAN PLATELET VOLUME 10.3 fl; RED CELL DISTRIBUTION WIDTH 13.5 % (11.5-20.0); WHITE BLOOD COUNT 8.3 Th/cmm (4.8-10.8)
[2017-05-11 05:12] LABS: ANION GAP 7.8 (7.0-16.0); BUN - UREA NITROGEN 6 mg/dL (7-25); CALCIUM SERUM 6.9 mg/dL (8.6-10.3); CARBON DIOXIDE 30.1 mEq/L (21.0-31.0); CHLORIDE 114 mEq/L (98-107); CREATININE - SERUM 0.6 mg/dL (0.6-1.2); GLUCOSE 121 mg/dL (70-105); SODIUM SERUM 149 mEq/L (136-145)
[2017-05-11 05:14] LABS: PLATELET COUNT 204 Th/cmm (150-400)
[2017-05-11 05:18] LABS: BILIRUBIN,DIRECT 0.21 mg/dL (0.0-0.2); BILIRUBIN,TOTAL 0.5 mg/dL (0.3-1.0); MAGNESIUM 2.3 mg/dL (1.9-2.7)
[2017-05-11 05:25] LABS: POTASSIUM SERUM 2.9 mEq/L (3.5-5.1)
[2017-05-11] MEDS: Pantoprazole 40 mg/Packet GT SCH (06:40)
[2017-05-11] MEDS ORDERED: Potassium Chloride 40 MEQ, Lidocaine 1% 20mL Vial 25 MG in Sodium Chloride 0.9% 250 ML IV ONE (08:42)
[2017-05-11] MEDS: Docusate Sodium 100 mg/10 mL UD GT SCH (08:52)
[2017-05-11] MEDS: Lactobacillus Rhamnosus 10 Billion CFU Capsule PO SCH (08:52)
[2017-05-11] MEDS: Ferrous Sulfate 300 MG/5 ML UDC GT SCH ×3 (08:52→21:08)
--- NOTE | 2017-05-11 08:54 | General Progress Note ---
Subjective - Review of Systems Service Date: 05/11/17 Events since last encounter: talked to father about risk of infection in presence of [employer] shunt will hold off on lap cholecystectomy in view of the above risk Objective - Results Result Diagrams: 05/11/17 04:11 05/11/17 04:11 Recent Labs: Laboratory Last Values WBC 8.3 Th/cmm (4.8-10.8) 05/11/17 04:11 RBC 3.90 Mil/cmm (3.80-5.10) 05/11/17 04:11 Hgb 11.9 gm/dL (12-16) L 05/11/17 04:11 Hct 35.8 % (41.0-60) L 05/11/17 04:11 MCV 91.6 fl (81-100) 05/11/17 04:11 MCH 30.6 pg (27.0-31.0) 05/11/17 04:11 MCHC Differential 33.4 pg (28.0-36.0) 05/11/17 04:11 RDW 13.5 % (11.5-20.0) 05/11/17 04:11 Plt Count 204 Th/cmm (150-400) D 05/11/17 04:11 MPV 10.3 fl 05/11/17 04:11 Neutrophils % 56.6 % (40.0-80.0) 05/11/17 04:11 Band Neutrophils % 4 % (0-10) 05/08/17 04:35 Lymphocytes % 28.9 % (20.0-50.0) 05/11/17 04:11 Monocytes % 10.9 % (2.0-10.0) H 05/11/17 04:11 Eosinophils % 2.7 % (0.0-5.0) 05/11/17 04:11 Basophils % 0.9 % (0.0-2.0) 05/11/17 04:11 Neutrophils (Manual) 69 % (40-80) 05/08/17 04:35 Lymphocytes 19 % (20-50) L 05/08/17 04:35 Monocytes 5 % (2-10) 05/08/17 04:35 Eosinophils 2 % (0-5) 05/08/17 04:35 Basophils 1 % (0-3) 05/08/17 04:35 Platelet Estimate ADEQUATE (NORMAL) 05/07/17 12:58 Platelet Morphology NORMAL (NORMAL) 05/07/17 12:58 RBC Morph Micro Appear NORMAL (NORMAL) 05/07/17 12:58 PT 12.0 SECONDS (9.5-11.5) H 05/07/17 12:58 INR 1.14 (0.5-1.4) 05/07/17 12:58 PTT (Actin FS) 24.5 SECONDS (26.0-38.0) L 05/07/17 12:58 Sodium 149 mEq/L (136-145) H 05/11/17 04:11 Potassium 2.9 mEq/L (3.5-5.1) L* 05/11/17 04:11 Chloride 114 mEq/L (98-107) H 05/11/17 04:11 Carbon Dioxide 30.1 mEq/L (21.0-31.0) 05/11/17 04:11 Anion Gap 7.8 (7.0-16.0) 05/11/17 04:11 BUN 6 mg/dL (7-25) L 05/11/17 04:11 Creatinine 0.6 mg/dL (0.6-1.2) 05/11/17 04:11 Est GFR ( Amer) > 60.0 ml/min (>90) 05/11/17 04:11 Est GFR (Non-Af Amer) > 60.0 ml/min 05/11/17 04:11 BUN/Creatinine Ratio 10.0 05/11/17 04:11 Glucose 121 mg/dL (70-105) H 05/11/17 04:11 POC Glucose 102 MG/DL (70 - 105) 05/10/17 11:07 Hemoglobin A1c % 5.3 % (4.0-6.0) 05/07/17 13:59 Whole Bld Lactic Acid 2.01 mmol/L (0.60-1.99) H* 05/07/17 15:03 Calcium 6.9 mg/dL (8.6-10.3) L 05/11/17 04:11 Phosphorus 3.6 mg/dL (2.5-5.0) 05/10/17 04:06 Magnesium 2.3 mg/dL (1.9-2.7) 05/11/17 04:11 Total Bilirubin 0.5 mg/dL (0.3-1.0) 05/11/17 04:11 Direct Bilirubin 0.21 mg/dL (0.0-0.2) H 05/11/17 04:11 AST 66 U/L (13-39) H 05/11/17 04:11 ALT 48 U/L (7-52) 05/11/17 04:11 Alkaline Phosphatase 73 U/L (34-104) 05/11/17 04:11 Ammonia 54 umol/L (16-53) H 05/08/17 04:35 Creatine Kinase 41 U/L (30-223) 05/07/17 12:58 Troponin I 0.06 ng/mL (0.01-0.05) H D 05/07/17 21:01 Total Protein 5.9 gm/dL (6.0-8.3) L 05/11/17 04:11 Albumin 3.0 gm/dL (3.7-5.3) L 05/11/17 04:11 Globulin 2.9 gm/dL 05/11/17 04:11 Albumin/Globulin Ratio 1.0 (1.0-1.8) 05/11/17 04:11 Lipase 176 U/L (11-82) H 05/08/17 04:35 Vitamin B12 882 pg/mL (211-946) 05/08/17 04:35 Folic Acid 6.0 ng/mL (>3.0) 05/08/17 04:35 TSH 0.55 uIU/ml (0.34-5.60) 05/08/17 04:35 Urine Source [place] 05/07/17 13:45 Urine Color ORANGE 05/07/17 13:45 Urine Clarity CLOUDY (CLEAR) H 05/07/17 13:45 Urine pH 5.5 (4.6 - 8.0) 05/07/17 13:45 Ur Specific [place] 1.025 (1.005-1.030) 05/07/17 13:45 Urine Protein 100 mg/dL (NEGATIVE) H 05/07/17 13:45 Urine Glucose (UA) NEGATIVE mg/dL (NEGATIVE) 05/07/17 13:45 Urine Ketones TRACE mg/dL (NEGATIVE) 05/07/17 13:45 Urine Blood SMALL (NEGATIVE) H 05/07/17 13:45 Urine Nitrate NEGATIVE (NEGATIVE) 05/07/17 13:45 Urine Bilirubin MODERATE (NEGATIVE) H 05/07/17 13:45 Urine Urobilinogen 1.0 E.U./dL (0.2 - 1.0) 05/07/17 13:45 Ur Leukocyte Esterase NEGATIVE (NEGATIVE) 05/07/17 13:45 Urine RBC 5-10 /hpf (0-5) H 05/07/17 13:45 Urine WBC 0-2 /hpf (0-5) 05/07/17 13:45 Ur Epithelial Cells FEW /lpf (FEW) 05/07/17 13:45 Amorphous Sediment MODERATE URATES (NONE SEEN) 05/07/17 13:45 Urine Bacteria 1+ /hpf (NONE SEEN) H 05/07/17 13:45 Urine Mucus MODERATE /lpf (FEW) 05/07/17 13:45 Urine Test NEGATIVE 05/07/17 13:45 Vancomycin Trough 24.0 ug/mL (10-20) H 05/11/17 08:00 Valproic Acid 25.4 ug/mL (50.0-100.0) L 05/07/17 13:06 - Physical Exam Vitals and I&O: Vital Signs Temp 98.1 F 05/11/17 04:00 Pulse 90 05/11/17 07:27 Resp 18 05/11/17 07:27 BP 118/71 05/11/17 07:00 Pulse Ox 99 05/11/17 07:27 Intake & Output 05/10/17 05/11/17 05/11/17 18:59 06:59 18:59 Intake Total 690 1180 Output Total 1102 1950 Balance -412 -770 Weight (lbs) 60.781 kg 60.384 kg Intake: Intake, IV Amount 50 300 Cefepime 1 gm In Dextrose 50 50 5% 50 ml @ 100 mls/hr IV Q12H [facility] Rx#:[id number] Vancomycin HCl 1.25 gm In 250 Sodium Chloride 0.9% 250 ml @ 165 mls/hr IV Q12H [facility] Rx#:[id number] Tube Feeding 240 480 Other 400 400 Output: Urine 1100 1950 Stool 2 Other: # Bowel Movements 1 Stool Characteristics Soft Soft Brown Brown Active Medications: Current Medications Acetaminophen (Tylenol) 650 mg PO Q4H PRN PRN Reason: Mild Pain Or Fever above 101 Stop: 07/06/17 20:03 Acetaminophen/Hydrocodone Bitart ([place] 5mg/325mg) 1 tab PO Q6H PRN PRN Reason: Pain (Severe) Stop: 07/06/17 20:00 Al Hydrox/Mg Hydrox/Simethicone (Maalox) 30 ml PO Q6H PRN PRN Reason: Dyspepsia Stop: 07/06/17 20:03 Albuterol Sulfate (Albuterol 2.5mg/3ml Neb Ud) 2.5 mg HHN Q2HRT PRN PRN Reason: Shortness of Breath or Wheeze Stop: 07/06/17 20:03 Artificial Tears (Artificial Tears Ophth Soln) 1 drop EACH EYE BID [facility] Stop: 07/07/17 08:59 Last Admin: 05/10/17 17:16 Dose: 1 drop Divalproex Sodium (Depakote Sprinkle) 125 mg GT Q12HR [facility] PRN Reason: Protocol Stop: 07/07/17 11:59 Last Admin: 05/10/17 20:48 Dose: 125 mg Docusate Sodium (Colace) 100 mg GT DAILY [facility] Stop: 07/07/17 12:59 Last Admin: 05/10/17 08:45 Dose: 100 mg Ferrous Sulfate (Iron) 300 mg GT TID [facility] Stop: 07/07/17 13:59 Last Admin: 05/10/17 20:49 Dose: 300 mg Heparin Sodium (Porcine) (Heparin) 5,000 units SUBQ Q12HR [facility] Stop: 07/07/17 20:59 Last Admin: 05/10/17 20:49 Dose: 5,000 units Cefepime HCl 1 gm/ Dextrose 50 mls @ 100 mls/hr IV Q12H [facility] Stop: 07/06/17 20:59 Last Infusion: 05/10/17 21:25 Dose: Infused Vancomycin HCl 1.25 gm/ Sodium (Chloride) 250 mls @ 165 mls/hr IV Q12H [facility] Stop: 07/09/17 20:59 Last Infusion: 05/10/17 23:16 Dose: Infused Dextrose (D5w) 1,000 mls @ 80 mls/hr IV .[id number] [facility] Stop: 07/06/17 20:14 Potassium Chloride 40 meq/Lidocaine HCl 25 mg/ Sodium Chloride 272.5 mls @ 68 mls/hr IV X1 ONE Stop: 05/11/17 12:42 Insulin Aspart (Novolog) 0 units SUBQ DAILY [facility] PRN Reason: Protocol Stop: 07/10/17 08:59 Ipratropium [place] (Atrovent Neb 0.5mg/2.5ml) 0.5 mg IH Q2HRT PRN PRN Reason: Shortness of Breath or Wheeze Stop: 07/06/17 20:03 Lactobacillus Rhamnosus (Culturelle) 1 each PO DAILY [facility] Stop: 07/08/17 08:59 Last Admin: 05/10/17 08:46 Dose: 1 each Latanoprost (Xalatan 0.005% Oph Soln) 1 drop RIGHT EYE HS [facility] Stop: 07/06/17 20:59 Last Admin: 05/10/17 20:48 Dose: 1 drop Lorazepam (Ativan) 1 mg GT Q6H PRN; Protocol PRN Reason: Anxiety Stop: 07/06/17 20:00 Lorazepam (Ativan) 1 mg IV Q4H PRN; Protocol PRN Reason: Seizure Stop: 07/06/17 20:03 Last Admin: 05/11/17 06:47 Dose: 1 mg Midodrine (Proamatine) 10 mg PO TID [facility] Stop: 07/08/17 13:59 Last Admin: 05/10/17 21:12 Dose: 10 mg Miscellaneous (Vancomycin Iv Per Pharmacy) 1 ea [facility] PRN [facility] Stop: 07/06/17 20:14 Miscellaneous (Vte Chemical Prophylaxis Screen/ Admission) 1 [facility] PRN PRN PRN Reason: PROTOCOL Stop: 07/07/17 12:25 Miscellaneous (Probiotic Screen) 1 ea PRN PRN PRN Reason: PROTOCOL Stop: 07/07/17 14:41 Ondansetron HCl (Zofran) 4 mg IV Q8H PRN PRN Reason: Nausea / Vomiting Stop: 07/06/17 20:03 Pantoprazole Sodium (Protonix) 40 mg GT QDAC [facility] Stop: 07/07/17 08:59 Last Admin: 05/11/17 06:40 Dose: 40 mg - Procedures Procedures: Procedures Procedure Code Date CHANGE FEEDING DEVICE IN UP INTEST TRACT, DIRECTOR MONEY APPROACH [id number] 05/07/17 CHANGE GASTROSTOMY TUBE 91366 05/07/17 Assessment/Plan - Problem List Patient Problems: All Active Problems Atypical chest pain (Active) R07.89 Nutritional Asmnt/Malnutr-PDOC - Dietary Evaluation Malnutrition Findings (Please click <Entered> for more info): Nutritional Asmnt/Malnutrition Start: 05/08/17 11: 46 Text: Status: Complete Freq: Document 05/08/17 11:46 GSJANIS (Rec: 05/08/17 12:08 [email or web address]) Nutritional Asmnt/Malnutrition Patient General Information Nutritional Screening High Risk Screening Diagnosis ER: dehydration, possible sepsis with leukocytosis, DM Pertinent Medical Hx/Surgical Hx ER report: PUD/GERD, trauma brain injury, chronic anemia Subjective Information 37 year old female from SNF. Pt was awake, non-verbal, family at bedside. GI Dr. Ch arrived during visit to replace g-tube. Confirmed with RN and pt's chart, pt is tube feeding dependent with pureed [place] for oral gratification. No muscle fat wasting noted. Current Diet Order/ Nutrition Support Currently no diet order. Pertinent Medications D5w, Iron, Novolog, Vancomycin , Zofran, Protonix Pertinent Labs 05/07: A1c 5.3 05/08: sodium 163H, potassium 3 .4L, glucose 143H, total bilirubin 1.3H Nutritional Hx/Data Height 1.7 m Height (Calculated Centimeters) 170.2 Current Weight (lbs) 63.049 kg Weight (Calculated Kilograms) 63.0 Weight (Calculated Grams) 51920.3 [place] Body Weight 135 Weight Status Approriate GI Symptoms Difficult in: Chewing Swallowing Food Allergies No Cultural/Ethnic/[employer] Belief [facility]: pureed with [place] for oral gratification. EN two trista bolus 5 cans per day, providing 1185ml and 2375kcal. Usual diet at home Refer to above. Skin Integrity/Comment: Robin 13. LEft arm non- pitting 3+. Estimated Nutritional Goals BEE in Kcals: Using Current wt Calories/Kcals/Kg CBW 139lb/63.2kg Kcals Calculated 1580-2212kcal (25-35kcal/kg, possible sepsis and 2375kcal at SNF) Protein: Using Current wt Protein Calculated 63-82g (1-1.3g/kg) Fluid: ml 1580-2212ml (1ml/kcal) Nutritional Problem 1. Problem Problem Increased kcal and prot needs related to Etiology possible hypermetabolic state, unknown aeb Signs/Symptoms: possible sepsis, pt receieves 2375kcal at [facility] Intervention/Recommendation Comments 1. Recommend Nutren 2.0 as pt toelrates this formula at [facility] at 40ml/hr x 24hrs, providing 960ml total volume, 1920kcal, and 81g protein. 2. Monitor glucose levels, if remains consistantly high, recommend Diabetisource at 70ml/hr x 24hrs, providing 1680ml total volume, 2016kcal, and 101g protein. 3. Recommend pureed [place] thick food items for oral gratification if needed as pt tolerates at [facility]. Expected Outcomes/Goals Expected Outcomes/Goals 1. Pt to meet 100% of estimated nutritional needs on tube feeding with tolerance.
[2017-05-11] MEDS: Polyvinyl Alcohol Ophth Soln 15 mL Bottle EACH EYE SCH ×2 (08:58→17:58)
[2017-05-11] MEDS: INSULIN ASPART, RECOMBINANT 100 UNITS/ML SUBQ SCH (08:59)
[2017-05-11] MEDS: Dextrose 5% 1,000 ML IV SCH (09:01)
--- NOTE | 2017-05-11 10:33 | Consultation ---
DATE OF CONSULTATION: 05/10/2017 REFERRING PHYSICIAN: Dr. Osei. REASON FOR CONSULTATION: Cholecystitis. Thank you for referring this patient to me. HISTORY OF PRESENT ILLNESS: This is a 37-year-old female who was admitted because of dislodged G-tube . This has been replaced. In the Emergency Room, the patient had CT scan, which showed sludge and the gallbladder ultrasound showing gallbladder stones. She had a HIDA scan which was nonvisualization of the gallbladder. 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 LABORATORY STUDIES: The CBC is normal. Potassium is low at 2.3. ASSESSMENT AND PLAN: In view of the ventriculoperitoneal shunt catheter in the abdominal cavity, presence of PEG tube, risk of infection is increased that might involve the shunt in the peritoneum. Infectious Disease consultation has been made and apparently the family was made aware of this risk. I did discuss this with the father and will continue to inform him. If medically cleared and if family accepts possibility of infection postoperatively, which might involve the shunt, I will schedule the patient for surgery. Thank you for this consultation. I will follow with you. JOB# [id number]
--- NOTE | 2017-05-11 14:30 | Internal Medicine Prog Note ---
Internal Medicine Subjective - Subjective Service Date: 05/11/17 Patient seen and examined:: with staff Patient is:: awake, non-interactive Per staff patient has:: no adverse event Internal Medicine Objective - Results Result Diagrams: 05/11/17 04:11 05/11/17 04:11 Recent Labs: Laboratory Last Values WBC 8.3 Th/cmm (4.8-10.8) 05/11/17 04:11 RBC 3.90 Mil/cmm (3.80-5.10) 05/11/17 04:11 Hgb 11.9 gm/dL (12-16) L 05/11/17 04:11 Hct 35.8 % (41.0-60) L 05/11/17 04:11 MCV 91.6 fl (81-100) 05/11/17 04:11 MCH 30.6 pg (27.0-31.0) 05/11/17 04:11 MCHC Differential 33.4 pg (28.0-36.0) 05/11/17 04:11 RDW 13.5 % (11.5-20.0) 05/11/17 04:11 Plt Count 204 Th/cmm (150-400) D 05/11/17 04:11 MPV 10.3 fl 05/11/17 04:11 Neutrophils % 56.6 % (40.0-80.0) 05/11/17 04:11 Band Neutrophils % 4 % (0-10) 05/08/17 04:35 Lymphocytes % 28.9 % (20.0-50.0) 05/11/17 04:11 Monocytes % 10.9 % (2.0-10.0) H 05/11/17 04:11 Eosinophils % 2.7 % (0.0-5.0) 05/11/17 04:11 Basophils % 0.9 % (0.0-2.0) 05/11/17 04:11 Neutrophils (Manual) 69 % (40-80) 05/08/17 04:35 Lymphocytes 19 % (20-50) L 05/08/17 04:35 Monocytes 5 % (2-10) 05/08/17 04:35 Eosinophils 2 % (0-5) 05/08/17 04:35 Basophils 1 % (0-3) 05/08/17 04:35 Platelet Estimate ADEQUATE (NORMAL) 05/07/17 12:58 Platelet Morphology NORMAL (NORMAL) 05/07/17 12:58 RBC Morph Micro Appear NORMAL (NORMAL) 05/07/17 12:58 PT 12.0 SECONDS (9.5-11.5) H 05/07/17 12:58 INR 1.14 (0.5-1.4) 05/07/17 12:58 PTT (Actin FS) 24.5 SECONDS (26.0-38.0) L 05/07/17 12:58 Sodium 149 mEq/L (136-145) H 05/11/17 04:11 Potassium 2.9 mEq/L (3.5-5.1) L* 05/11/17 04:11 Chloride 114 mEq/L (98-107) H 05/11/17 04:11 Carbon Dioxide 30.1 mEq/L (21.0-31.0) 05/11/17 04:11 Anion Gap 7.8 (7.0-16.0) 05/11/17 04:11 BUN 6 mg/dL (7-25) L 05/11/17 04:11 Creatinine 0.6 mg/dL (0.6-1.2) 05/11/17 04:11 Est GFR ( Amer) > 60.0 ml/min (>90) 05/11/17 04:11 Est GFR (Non-Af Amer) > 60.0 ml/min 05/11/17 04:11 BUN/Creatinine Ratio 10.0 05/11/17 04:11 Glucose 121 mg/dL (70-105) H 05/11/17 04:11 POC Glucose 102 MG/DL (70 - 105) 05/10/17 11:07 Hemoglobin A1c % 5.3 % (4.0-6.0) 05/07/17 13:59 Whole Bld Lactic Acid 2.01 mmol/L (0.60-1.99) H* 05/07/17 15:03 Calcium 6.9 mg/dL (8.6-10.3) L 05/11/17 04:11 Phosphorus 3.6 mg/dL (2.5-5.0) 05/10/17 04:06 Magnesium 2.3 mg/dL (1.9-2.7) 05/11/17 04:11 Total Bilirubin 0.5 mg/dL (0.3-1.0) 05/11/17 04:11 Direct Bilirubin 0.21 mg/dL (0.0-0.2) H 05/11/17 04:11 AST 66 U/L (13-39) H 05/11/17 04:11 ALT 48 U/L (7-52) 05/11/17 04:11 Alkaline Phosphatase 73 U/L (34-104) 05/11/17 04:11 Ammonia 54 umol/L (16-53) H 05/08/17 04:35 Creatine Kinase 41 U/L (30-223) 05/07/17 12:58 Troponin I 0.06 ng/mL (0.01-0.05) H D 05/07/17 21:01 Total Protein 5.9 gm/dL (6.0-8.3) L 05/11/17 04:11 Albumin 3.0 gm/dL (3.7-5.3) L 05/11/17 04:11 Globulin 2.9 gm/dL 05/11/17 04:11 Albumin/Globulin Ratio 1.0 (1.0-1.8) 05/11/17 04:11 Lipase 176 U/L (11-82) H 05/08/17 04:35 Vitamin B12 882 pg/mL (211-946) 05/08/17 04:35 Folic Acid 6.0 ng/mL (>3.0) 05/08/17 04:35 TSH 0.55 uIU/ml (0.34-5.60) 05/08/17 04:35 Urine Source [place] 05/07/17 13:45 Urine Color ORANGE 05/07/17 13:45 Urine Clarity CLOUDY (CLEAR) H 05/07/17 13:45 Urine pH 5.5 (4.6 - 8.0) 05/07/17 13:45 Ur Specific [place] 1.025 (1.005-1.030) 05/07/17 13:45 Urine Protein 100 mg/dL (NEGATIVE) H 05/07/17 13:45 Urine Glucose (UA) NEGATIVE mg/dL (NEGATIVE) 05/07/17 13:45 Urine Ketones TRACE mg/dL (NEGATIVE) 05/07/17 13:45 Urine Blood SMALL (NEGATIVE) H 05/07/17 13:45 Urine Nitrate NEGATIVE (NEGATIVE) 05/07/17 13:45 Urine Bilirubin MODERATE (NEGATIVE) H 05/07/17 13:45 Urine Urobilinogen 1.0 E.U./dL (0.2 - 1.0) 05/07/17 13:45 Ur Leukocyte Esterase NEGATIVE (NEGATIVE) 05/07/17 13:45 Urine RBC 5-10 /hpf (0-5) H 05/07/17 13:45 Urine WBC 0-2 /hpf (0-5) 05/07/17 13:45 Ur Epithelial Cells FEW /lpf (FEW) 05/07/17 13:45 Amorphous Sediment MODERATE URATES (NONE SEEN) 05/07/17 13:45 Urine Bacteria 1+ /hpf (NONE SEEN) H 05/07/17 13:45 Urine Mucus MODERATE /lpf (FEW) 05/07/17 13:45 Urine Test NEGATIVE 05/07/17 13:45 Vancomycin Trough 24.0 ug/mL (10-20) H 05/11/17 08:00 Valproic Acid 25.4 ug/mL (50.0-100.0) L 05/07/17 13:06 - Physical Exam Vitals and I&O: Vital Signs Temp 98.0 F 05/11/17 12:00 Pulse 91 05/11/17 14:00 Resp 20 05/11/17 14:00 BP 86/49 05/11/17 14:00 Pulse Ox 98 05/11/17 14:00 Intake & Output 05/10/17 05/11/17 05/11/17 18:59 06:59 18:59 Intake Total 690 1180 50 Output Total 1102 1950 Balance -412 -770 50 Weight (lbs) 134 lb 133 lb 2 oz Intake: Intake, IV Amount 50 300 50 Cefepime 1 gm In Dextrose 50 50 50 5% 50 ml @ 100 mls/hr IV Q12H [facility] Rx#:[id number] Vancomycin HCl 1.25 gm In 250 Sodium Chloride 0.9% 250 ml @ 165 mls/hr IV Q12H [facility] Rx#:[id number] Tube Feeding 240 480 Other 400 400 Output: Urine 1100 1950 Stool 2 Other: # Bowel Movements 1 Stool Characteristics Soft Soft Brown Brown Active Medications: Current Medications Acetaminophen (Tylenol) 650 mg PO Q4H PRN PRN Reason: Mild Pain Or Fever above 101 Stop: 07/06/17 20:03 Acetaminophen/Hydrocodone Bitart ([place] 5mg/325mg) 1 tab PO Q6H PRN PRN Reason: Pain (Severe) Stop: 07/06/17 20:00 Al Hydrox/Mg Hydrox/Simethicone (Maalox) 30 ml PO Q6H PRN PRN Reason: Dyspepsia Stop: 07/06/17 20:03 Albuterol Sulfate (Albuterol 2.5mg/3ml Neb Ud) 2.5 mg HHN Q2HRT PRN PRN Reason: Shortness of Breath or Wheeze Stop: 07/06/17 20:03 Artificial Tears (Artificial Tears Ophth Soln) 1 drop EACH EYE BID [facility] Stop: 07/07/17 08:59 Last Admin: 05/11/17 08:58 Dose: 1 drop Divalproex Sodium (Depakote Sprinkle) 125 mg GT Q12HR [facility] PRN Reason: Protocol Stop: 07/07/17 11:59 Last Admin: 05/11/17 08:52 Dose: 125 mg Docusate Sodium (Colace) 100 mg GT DAILY [facility] Stop: 07/07/17 12:59 Last Admin: 05/11/17 08:52 Dose: 100 mg Ferrous Sulfate (Iron) 300 mg GT TID [facility] Stop: 07/07/17 13:59 Last Admin: 05/11/17 13:23 Dose: 300 mg Heparin Sodium (Porcine) (Heparin) 5,000 units SUBQ Q12HR [facility] Stop: 07/07/17 20:59 Last Admin: 05/11/17 08:51 Dose: 5,000 units Cefepime HCl 1 gm/ Dextrose 50 mls @ 100 mls/hr IV Q12H [facility] Stop: 07/06/17 20:59 Last Infusion: 05/11/17 09:25 Dose: Infused Vancomycin HCl 1.25 gm/ Sodium (Chloride) 250 mls @ 165 mls/hr IV Q12H [facility] Stop: 07/09/17 20:59 Last Admin: 05/11/17 09:44 Dose: 165 mls/hr Dextrose (D5w) 1,000 mls @ 80 mls/hr IV .[id number] [facility] Stop: 07/06/17 20:14 Last Admin: 05/11/17 09:01 Dose: 80 mls/hr Insulin Aspart (Novolog) 0 units SUBQ DAILY [facility] PRN Reason: Protocol Stop: 07/10/17 08:59 Last Admin: 05/11/17 08:59 Dose: Not Given Ipratropium [place] (Atrovent Neb 0.5mg/2.5ml) 0.5 mg IH Q2HRT PRN PRN Reason: Shortness of Breath or Wheeze Stop: 07/06/17 20:03 Lactobacillus Rhamnosus (Culturelle) 1 each PO DAILY [facility] Stop: 07/08/17 08:59 Last Admin: 05/11/17 08:52 Dose: 1 each Latanoprost (Xalatan 0.005% [facility] Sol) 1 drop RIGHT EYE HS [facility] Stop: 07/06/17 20:59 Last Admin: 05/10/17 20:48 Dose: 1 drop Lorazepam (Ativan) 1 mg GT Q6H PRN; Protocol PRN Reason: Anxiety Stop: 07/06/17 20:00 Lorazepam (Ativan) 1 mg IV Q4H PRN; Protocol PRN Reason: Seizure Stop: 07/06/17 20:03 Last Admin: 05/11/17 06:47 Dose: 1 mg Midodrine (Proamatine) 10 mg PO TID [facility] Stop: 07/08/17 13:59 Last Admin: 05/11/17 13:23 Dose: 10 mg Miscellaneous (Vancomycin Iv Per Pharmacy) 1 ea [facility] PRN [facility] Stop: 07/06/17 20:14 Miscellaneous (Vte Chemical Prophylaxis Screen/ Admission) 1 [facility] PRN PRN PRN Reason: PROTOCOL Stop: 07/07/17 12:25 Miscellaneous (Probiotic Screen) 1 [facility] PRN PRN PRN Reason: PROTOCOL Stop: 07/07/17 14:41 Ondansetron HCl (Zofran) 4 mg IV Q8H PRN PRN Reason: Nausea / Vomiting Stop: 07/06/17 20:03 Pantoprazole Sodium (Protonix) 40 mg GT QDAC [facility] Stop: 07/07/17 08:59 Last Admin: 05/11/17 06:40 Dose: 40 mg General: weak, alert HEENT: NC/AT, PERRLA Neck: Supple Lungs: CTAB Cardiovascular: RRR, Normal S1, Normal S2 Abdomen: soft, non-tender, non-distended Extremities: excoriation - Procedures Procedures: Procedures Procedure Code Date CHANGE FEEDING DEVICE IN UP INTEST TRACT, MARKET SPECIALIST APPROACH [id number] 05/07/17 CHANGE GASTROSTOMY TUBE 81745 05/07/17 Internal Medicine Assmt/Plan - Assessment Assessment: SEPSIS ALOC HYPERNATREMIA HYPOKALEMIA GT MALFUNCTION ACUTE UTI - Plan Plan: replace k+ IVF FOR HYDRATION EMPIRIC IV ANTIBIOTICS MONITOR ELECTROLYTES CONTINUE CURRENT PLAN OF CARE Nutritional Asmnt/Malnutr-PDOC - Dietary Evaluation Malnutrition Findings (Please click <Entered> for more info): Nutritional Asmnt/Malnutrition Start: 05/08/17 11: 46 Text: Status: Complete Freq: Document 05/08/17 11:46 GSUN (Rec: 05/08/17 12:08 [email or web address]) Nutritional Asmnt/Malnutrition Patient General Information Nutritional Screening High Risk Screening Diagnosis ER: dehydration, possible sepsis with leukocytosis, DM Pertinent Medical Hx/Surgical Hx ER report: PUD/GERD, trauma brain injury, chronic anemia Subjective Information 37 year old female from SNF. Pt was awake, non-verbal, family at bedside. GI Dr. Ch arrived during visit to replace g-tube. Confirmed with RN and pt's chart, pt is tube feeding dependent with pureed [place] for oral gratification. No muscle fat wasting noted. Current Diet Order/ Nutrition Support Currently no diet order. Pertinent Medications D5w, Iron, Novolog, Vancomycin , Zofran, Protonix Pertinent Labs 05/07: A1c 5.3 05/08: sodium 163H, potassium 3 .4L, glucose 143H, total bilirubin 1.3H Nutritional Hx/Data Height 5 ft 7 in Height (Calculated Centimeters) 170.2 Current Weight (lbs) 139 lb Weight (Calculated Kilograms) 63.0 Weight (Calculated Grams) 40196.3 [place] Body Weight 135 Weight Status Approriate GI Symptoms Difficult in: Chewing Swallowing Food Allergies No Cultural/Ethnic/Taoism Belief [facility]: pureed with [place] for oral gratification. EN two trista bolus 5 cans per day, providing 1185ml and 2375kcal. Usual diet at home Refer to above. Skin Integrity/Comment: Robin 13. LEft arm non- pitting 3+. Estimated Nutritional Goals BEE in Kcals: Using Current wt Calories/Kcals/Kg CBW 139lb/63.2kg Kcals Calculated 1580-2212kcal (25-35kcal/kg, possible sepsis and 2375kcal at SNF) Protein: Using Current wt Protein Calculated 63-82g (1-1.3g/kg) Fluid: ml 1580-2212ml (1ml/kcal) Nutritional Problem 1. Problem Problem Increased kcal and prot needs related to Etiology possible hypermetabolic state, unknown aeb Signs/Symptoms: possible sepsis, pt receieves 2375kcal at [facility] Intervention/Recommendation Comments 1. Recommend Nutren 2.0 as pt toelrates this formula at [facility] at 40ml/hr x 24hrs, providing 960ml total volume, 1920kcal, and 81g protein. 2. Monitor glucose levels, if remains consistantly high, recommend Diabetisource at 70ml/hr x 24hrs, providing 1680ml total volume, 2016kcal, and 101g protein. 3. Recommend pureed [place] thick food items for oral gratification if needed as pt tolerates at [facility]. Expected Outcomes/Goals Expected Outcomes/Goals 1. Pt to meet 100% of estimated nutritional needs on tube feeding with tolerance.
--- NOTE | 2017-05-11 15:14 | Infectious Disease Prog Note ---
Infectious Disease Subjective - Review of Systems Service Date: 05/11/17 Subjective: No new change. no fever. Infectious Disease Objective - Results Result Diagrams: 05/11/17 04:11 05/11/17 04:11 Recent Labs: Laboratory Last Values WBC 8.3 Th/cmm (4.8-10.8) 05/11/17 04:11 RBC 3.90 Mil/cmm (3.80-5.10) 05/11/17 04:11 Hgb 11.9 gm/dL (12-16) L 05/11/17 04:11 Hct 35.8 % (41.0-60) L 05/11/17 04:11 MCV 91.6 fl (81-100) 05/11/17 04:11 MCH 30.6 pg (27.0-31.0) 05/11/17 04:11 MCHC Differential 33.4 pg (28.0-36.0) 05/11/17 04:11 RDW 13.5 % (11.5-20.0) 05/11/17 04:11 Plt Count 204 Th/cmm (150-400) D 05/11/17 04:11 MPV 10.3 fl 05/11/17 04:11 Neutrophils % 56.6 % (40.0-80.0) 05/11/17 04:11 Band Neutrophils % 4 % (0-10) 05/08/17 04:35 Lymphocytes % 28.9 % (20.0-50.0) 05/11/17 04:11 Monocytes % 10.9 % (2.0-10.0) H 05/11/17 04:11 Eosinophils % 2.7 % (0.0-5.0) 05/11/17 04:11 Basophils % 0.9 % (0.0-2.0) 05/11/17 04:11 Neutrophils (Manual) 69 % (40-80) 05/08/17 04:35 Lymphocytes 19 % (20-50) L 05/08/17 04:35 Monocytes 5 % (2-10) 05/08/17 04:35 Eosinophils 2 % (0-5) 05/08/17 04:35 Basophils 1 % (0-3) 05/08/17 04:35 Platelet Estimate ADEQUATE (NORMAL) 05/07/17 12:58 Platelet Morphology NORMAL (NORMAL) 05/07/17 12:58 RBC Morph Micro Appear NORMAL (NORMAL) 05/07/17 12:58 PT 12.0 SECONDS (9.5-11.5) H 05/07/17 12:58 INR 1.14 (0.5-1.4) 05/07/17 12:58 PTT (Actin FS) 24.5 SECONDS (26.0-38.0) L 05/07/17 12:58 Sodium 149 mEq/L (136-145) H 05/11/17 04:11 Potassium 2.9 mEq/L (3.5-5.1) L* 05/11/17 04:11 Chloride 114 mEq/L (98-107) H 05/11/17 04:11 Carbon Dioxide 30.1 mEq/L (21.0-31.0) 05/11/17 04:11 Anion Gap 7.8 (7.0-16.0) 05/11/17 04:11 BUN 6 mg/dL (7-25) L 05/11/17 04:11 Creatinine 0.6 mg/dL (0.6-1.2) 05/11/17 04:11 Est GFR ( Amer) > 60.0 ml/min (>90) 05/11/17 04:11 Est GFR (Non-Af Amer) > 60.0 ml/min 05/11/17 04:11 BUN/Creatinine Ratio 10.0 05/11/17 04:11 Glucose 121 mg/dL (70-105) H 05/11/17 04:11 POC Glucose 102 MG/DL (70 - 105) 05/10/17 11:07 Hemoglobin A1c % 5.3 % (4.0-6.0) 05/07/17 13:59 Whole Bld Lactic Acid 2.01 mmol/L (0.60-1.99) H* 05/07/17 15:03 Calcium 6.9 mg/dL (8.6-10.3) L 05/11/17 04:11 Phosphorus 3.6 mg/dL (2.5-5.0) 05/10/17 04:06 Magnesium 2.3 mg/dL (1.9-2.7) 05/11/17 04:11 Total Bilirubin 0.5 mg/dL (0.3-1.0) 05/11/17 04:11 Direct Bilirubin 0.21 mg/dL (0.0-0.2) H 05/11/17 04:11 AST 66 U/L (13-39) H 05/11/17 04:11 ALT 48 U/L (7-52) 05/11/17 04:11 Alkaline Phosphatase 73 U/L (34-104) 05/11/17 04:11 Ammonia 54 umol/L (16-53) H 05/08/17 04:35 Creatine Kinase 41 U/L (30-223) 05/07/17 12:58 Troponin I 0.06 ng/mL (0.01-0.05) H D 05/07/17 21:01 Total Protein 5.9 gm/dL (6.0-8.3) L 05/11/17 04:11 Albumin 3.0 gm/dL (3.7-5.3) L 05/11/17 04:11 Globulin 2.9 gm/dL 05/11/17 04:11 Albumin/Globulin Ratio 1.0 (1.0-1.8) 05/11/17 04:11 Lipase 176 U/L (11-82) H 05/08/17 04:35 Vitamin B12 882 pg/mL (211-946) 05/08/17 04:35 Folic Acid 6.0 ng/mL (>3.0) 05/08/17 04:35 TSH 0.55 uIU/ml (0.34-5.60) 05/08/17 04:35 Urine Source [place] 05/07/17 13:45 Urine Color ORANGE 05/07/17 13:45 Urine Clarity CLOUDY (CLEAR) H 05/07/17 13:45 Urine pH 5.5 (4.6 - 8.0) 05/07/17 13:45 Ur Specific [place] 1.025 (1.005-1.030) 05/07/17 13:45 Urine Protein 100 mg/dL (NEGATIVE) H 05/07/17 13:45 Urine Glucose (UA) NEGATIVE mg/dL (NEGATIVE) 05/07/17 13:45 Urine Ketones TRACE mg/dL (NEGATIVE) 05/07/17 13:45 Urine Blood SMALL (NEGATIVE) H 05/07/17 13:45 Urine Nitrate NEGATIVE (NEGATIVE) 05/07/17 13:45 Urine Bilirubin MODERATE (NEGATIVE) H 05/07/17 13:45 Urine Urobilinogen 1.0 E.U./dL (0.2 - 1.0) 05/07/17 13:45 Ur Leukocyte Esterase NEGATIVE (NEGATIVE) 05/07/17 13:45 Urine RBC 5-10 /hpf (0-5) H 05/07/17 13:45 Urine WBC 0-2 /hpf (0-5) 05/07/17 13:45 Ur Epithelial Cells FEW /lpf (FEW) 05/07/17 13:45 Amorphous Sediment MODERATE URATES (NONE SEEN) 05/07/17 13:45 Urine Bacteria 1+ /hpf (NONE SEEN) H 05/07/17 13:45 Urine Mucus MODERATE /lpf (FEW) 05/07/17 13:45 Urine Test NEGATIVE 05/07/17 13:45 Vancomycin Trough 24.0 ug/mL (10-20) H 05/11/17 08:00 Valproic Acid 25.4 ug/mL (50.0-100.0) L 05/07/17 13:06 - Physical Exam Vitals and I&O: Vital Signs Temp 98.0 F 05/11/17 12:00 Pulse 91 05/11/17 14:00 Resp 20 05/11/17 14:00 BP 86/49 05/11/17 14:00 Pulse Ox 98 05/11/17 14:00 Intake & Output 05/10/17 05/11/17 05/11/17 18:59 06:59 18:59 Intake Total 690 1180 50 Output Total 1102 1950 Balance -412 -770 50 Weight (lbs) 60.781 kg 60.384 kg Intake: Intake, IV Amount 50 300 50 Cefepime 1 gm In Dextrose 50 50 50 5% 50 ml @ 100 mls/hr IV Q12H [facility] Rx#:[id number] Vancomycin HCl 1.25 gm In 250 Sodium Chloride 0.9% 250 ml @ 165 mls/hr IV Q12H [facility] Rx#:[id number] Tube Feeding 240 480 Other 400 400 Output: Urine 1100 1950 Stool 2 Other: # Bowel Movements 1 Stool Characteristics Soft Soft Brown Brown Active Medications: Current Medications Acetaminophen (Tylenol) 650 mg PO Q4H PRN PRN Reason: Mild Pain Or Fever above 101 Stop: 07/06/17 20:03 Acetaminophen/Hydrocodone Bitart ([place] 5mg/325mg) 1 tab PO Q6H PRN PRN Reason: Pain (Severe) Stop: 07/06/17 20:00 Al Hydrox/Mg Hydrox/Simethicone (Maalox) 30 ml PO Q6H PRN PRN Reason: Dyspepsia Stop: 07/06/17 20:03 Albuterol Sulfate (Albuterol 2.5mg/3ml Neb Ud) 2.5 mg HHN Q2HRT PRN PRN Reason: Shortness of Breath or Wheeze Stop: 07/06/17 20:03 Artificial Tears (Artificial Tears Ophth Soln) 1 drop EACH EYE BID [facility] Stop: 07/07/17 08:59 Last Admin: 05/11/17 08:58 Dose: 1 drop Divalproex Sodium (Depakote Sprinkle) 125 mg GT Q12HR [facility] PRN Reason: Protocol Stop: 07/07/17 11:59 Last Admin: 05/11/17 08:52 Dose: 125 mg Docusate Sodium (Colace) 100 mg GT DAILY [facility] Stop: 07/07/17 12:59 Last Admin: 05/11/17 08:52 Dose: 100 mg Ferrous Sulfate (Iron) 300 mg GT TID [facility] Stop: 07/07/17 13:59 Last Admin: 05/11/17 13:23 Dose: 300 mg Heparin Sodium (Porcine) (Heparin) 5,000 units SUBQ Q12HR [facility] Stop: 07/07/17 20:59 Last Admin: 05/11/17 08:51 Dose: 5,000 units Cefepime HCl 1 gm/ Dextrose 50 mls @ 100 mls/hr IV Q12H [facility] Stop: 07/06/17 20:59 Last Infusion: 05/11/17 09:25 Dose: Infused Vancomycin HCl 1.25 gm/ Sodium (Chloride) 250 mls @ 165 mls/hr IV Q12H [facility] Stop: 07/09/17 20:59 Last Admin: 05/11/17 09:44 Dose: 165 mls/hr Dextrose (D5w) 1,000 mls @ 80 mls/hr IV .[id number] [facility] Stop: 07/06/17 20:14 Last Admin: 05/11/17 09:01 Dose: 80 mls/hr Insulin Aspart (Novolog) 0 units SUBQ DAILY [facility] PRN Reason: Protocol Stop: 07/10/17 08:59 Last Admin: 05/11/17 08:59 Dose: Not Given Ipratropium [place] (Atrovent Neb 0.5mg/2.5ml) 0.5 mg IH Q2HRT PRN PRN Reason: Shortness of Breath or Wheeze Stop: 07/06/17 20:03 Lactobacillus Rhamnosus (Culturelle) 1 each PO DAILY [facility] Stop: 07/08/17 08:59 Last Admin: 05/11/17 08:52 Dose: 1 each Latanoprost (Xalatan 0.005% Ophth Soln) 1 drop RIGHT EYE HS [facility] Stop: 07/06/17 20:59 Last Admin: 05/10/17 20:48 Dose: 1 drop Lorazepam (Ativan) 1 mg GT Q6H PRN; Protocol PRN Reason: Anxiety Stop: 07/06/17 20:00 Lorazepam (Ativan) 1 mg IV Q4H PRN; Protocol PRN Reason: Seizure Stop: 07/06/17 20:03 Last Admin: 05/11/17 06:47 Dose: 1 mg Midodrine (Proamatine) 10 mg PO TID [facility] Stop: 07/08/17 13:59 Last Admin: 05/11/17 13:23 Dose: 10 mg Miscellaneous (Vancomycin Iv Per Pharmacy) 1 ea PRN [facility] Stop: 07/06/17 20:14 Miscellaneous (Vte Chemical Prophylaxis Screen/ Admission) 1 [facility] PRN PRN PRN Reason: PROTOCOL Stop: 07/07/17 12:25 Miscellaneous (Probiotic Screen) 1 [facility] PRN PRN PRN Reason: PROTOCOL Stop: 07/07/17 14:41 Ondansetron HCl (Zofran) 4 mg IV Q8H PRN PRN Reason: Nausea / Vomiting Stop: 07/06/17 20:03 Pantoprazole Sodium (Protonix) 40 mg GT QDAC [facility] Stop: 07/07/17 08:59 Last Admin: 05/11/17 06:40 Dose: 40 mg General: no acute distress, well developed, well nourished HEENT: atraumatic, normocephalic, PERRLA Neck: supple, no thyromegaly, no lymphadenopathy Cardiovascular: S1S2, regular Lungs: clear to auscultation bilaterally, clear to percussion Abdomen: soft, no tender, no distended Extremities: no cyanosis, no clubbing, no edema Neurological: other (confused.) Skin: intact - Procedures Procedures: Procedures Procedure Code Date CHANGE FEEDING DEVICE IN UP INTEST TRACT, FISHING ROD MECHANIC APPROACH [id number] 05/07/17 CHANGE GASTROSTOMY TUBE 73128 05/07/17 Infectious Disease Assmt/Plan - Problem List Patient Problems: All Active Problems Atypical chest pain (Active) R07.89 - Assessment Assessment: 1. Acute cholecytitis. 2. 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 Traumatic brain injury. 4. Dehydration. 5. Altered mental status, due to metabolic encephalopathy 6. Hypernatremia. Plan: Conitnue the same antibiotics, cefepime and vanco IV. - Plan Plan: Conitnue the same antibiotics, cefepime and vanco IV. Nutritional Asmnt/Malnutr-PDOC - Dietary Evaluation Malnutrition Findings (Please click <Entered> for more info): Nutritional Asmnt/Malnutrition Start: 05/08/17 11: 46 Text: Status: Complete Freq: Document 05/08/17 11:46 GSUN (Rec: 05/08/17 12:08 GSUN [email or web address]) Nutritional Asmnt/Malnutrition Patient General Information Nutritional Screening High Risk Screening Diagnosis ER: dehydration, possible sepsis with leukocytosis, DM Pertinent Medical Hx/Surgical Hx ER report: PUD/GERD, trauma brain injury, chronic anemia Subjective Information 37 year old female from SNF. Pt was awake, non-verbal, family at bedside. GI Dr. Ch arrived during visit to replace g-tube. Confirmed with RN and pt's chart, pt is tube feeding dependent with pureed [place] for oral gratification. No muscle fat wasting noted. Current Diet Order/ Nutrition Support Currently no diet order. Pertinent Medications D5w, Iron, Novolog, Vancomycin , Zofran, Protonix Pertinent Labs 05/07: A1c 5.3 05/08: sodium 163H, potassium 3 .4L, glucose 143H, total bilirubin 1.3H Nutritional Hx/Data Height 1.7 m Height (Calculated Centimeters) 170.2 Current Weight (lbs) 63.049 kg Weight (Calculated Kilograms) 63.0 Weight (Calculated Grams) 91085.3 [place] Body Weight 135 Weight Status Approriate GI Symptoms Difficult in: Chewing Swallowing Food Allergies No Cultural/Ethnic/Sabianism Belief [facility]: pureed with [place] for oral gratification. EN two trista bolus 5 cans per day, providing 1185ml and 2375kcal. Usual diet at home Refer to above. Skin Integrity/Comment: Robin 13. LEft arm non- pitting 3+. Estimated Nutritional Goals BEE in Kcals: Using Current wt Calories/Kcals/Kg CBW 139lb/63.2kg Kcals Calculated 1580-2212kcal (25-35kcal/kg, possible sepsis and 2375kcal at SNF) Protein: Using Current wt Protein Calculated 63-82g (1-1.3g/kg) Fluid: ml 1580-2212ml (1ml/kcal) Nutritional Problem 1. Problem Problem Increased kcal and prot needs related to Etiology possible hypermetabolic state, unknown aeb Signs/Symptoms: possible sepsis, pt receieves 2375kcal at [facility] Intervention/Recommendation Comments 1. Recommend Nutren 2.0 as pt toelrates this formula at [facility] at 40ml/hr x 24hrs, providing 960ml total volume, 1920kcal, and 81g protein. 2. Monitor glucose levels, if remains consistantly high, recommend Diabetisource at 70ml/hr x 24hrs, providing 1680ml total volume, 2016kcal, and 101g protein. 3. Recommend pureed [place] thick food items for oral gratification if needed as pt tolerates at SNF. Expected Outcomes/Goals Expected Outcomes/Goals 1. Pt to meet 100% of estimated nutritional needs on tube feeding with tolerance.
[2017-05-12] MEDS: Dextrose 5% 1,000 ML IV SCH (04:42)
[2017-05-12 04:47] LABS: % BASOPHILS 0.4 % (0.0-2.0); % EOSINOPHILS 3.1 % (0.0-5.0); % MONOCYTES 10.1 % (2.0-10.0); % NEUTROPHILS 54.4 % (40.0-80.0); HEMATOCRIT 36.1 % (41.0-60); MEAN CELL VOLUME 92.3 fl (81-100); MEAN CORPUSCULAR HEMOGLOBIN 30.6 pg (27.0-31.0); MEAN CORPUSCULAR HGB CONC 33.2 pg (28.0-36.0); MEAN PLATELET VOLUME 9.8 fl; NEUTROPHILE ABSOLUTE 4.9 Th/cmm (1.8-8.0); PLATELET COUNT 233 Th/cmm (150-400); RED BLOOD COUNT 3.92 Mil/cmm (3.80-5.10); RED CELL DISTRIBUTION WIDTH 13.9 % (11.5-20.0); WHITE BLOOD COUNT 8.9 Th/cmm (4.8-10.8)
[2017-05-12 05:07] LABS: ALKALINE PHOSPHATASE 68 U/L (34-104); ANION GAP 7.2 (7.0-16.0); BILIRUBIN,TOTAL 0.4 mg/dL (0.3-1.0); BUN - UREA NITROGEN 6 mg/dL (7-25); CARBON DIOXIDE 28.4 mEq/L (21.0-31.0); CHLORIDE 120 mEq/L (98-107); CREATININE - SERUM 0.5 mg/dL (0.6-1.2); GLUCOSE 105 mg/dL (70-105); POTASSIUM SERUM 3.6 mEq/L (3.5-5.1); SGOT 53 U/L (13-39); SGPT/ALT 39 U/L (7-52); SODIUM SERUM 152 mEq/L (136-145)
[2017-05-12] MEDS: Pantoprazole 40 mg/Packet GT SCH (06:47)
[2017-05-12] MEDS: Docusate Sodium 100 mg/10 mL UD GT SCH (09:01)
[2017-05-12] MEDS: Ferrous Sulfate 300 MG/5 ML UDC GT SCH ×3 (09:01→20:56)
[2017-05-12] MEDS: Polyvinyl Alcohol Ophth Soln 15 mL Bottle EACH EYE SCH ×2 (09:02→16:32)
[2017-05-12] MEDS: Lactobacillus Rhamnosus 10 Billion CFU Capsule PO SCH (09:02)
[2017-05-12] MEDS: INSULIN ASPART, RECOMBINANT 100 UNITS/ML SUBQ SCH (09:44)
[2017-05-12] MEDS ORDERED: Neostigmine 10mg/10mL Vial ONE (12:14)
[2017-05-12] MEDS ORDERED: fentaNYL Citrate 100 mcg/2mL Vial IVP ONE (12:30)
--- NOTE | 2017-05-12 13:06 | Operative Report ---
DATE OF SURGERY: 05/12/2017 PREOPERATIVE DIAGNOSES: 1. Calculous cholecystitis with obstruction of cystic duct. 2. 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 3. G-tube feeding. INDICATIONS FOR SURGERY: The patient with calculous cholecystitis with CT scan showing a large gallstone and ultrasound documentation also. HIDA scan showed cystic duct obstruction. Upper GI series did not show any obstruction of the small bowel or upper GI. Informed consent discussed with the father and mother because of the presence of ventriculojugular shunt in the peritoneal cavity and the risk of possible infection. This might spread to the brain. Family aware of this complication and in view of the possibility of persistent cholecystitis, family has agreed to take the risk of this possibility. OPERATIVE FINDINGS: Marked distention of the gallbladder, which had to be aspirated with dense adhesions. Gallbladder contained so much fluid requiring evacuation Conversion to open had to be done. ESTIMATED BLOOD LOSS: 20 mL. POSTOPERATIVE DIAGNOSES: 1. Hydrops of the gallbladder with adhesions. 2. Cirrhosis of the liver. HISTORY OF PRESENT ILLNESS: Lele Hess M.D. ANESTHESIA: General. anesthesiologist : Linwood DESCRIPTION OF PROCEDURE: The patient was given general anesthesia. The abdomen was prepped with Betadine and draped in appropriate manner. An infraumbilical incision was made along the skin line. A Veress needle was inserted. Insufflation of CO2 was carried successfully. Another 10 mm trocar was placed in upper abdomen at the midline and two 5 mm trocars were placed in the right flank. The operating table was elevated at the head and turned to the left side. There were dense adhesions of the gallbladder to the omentum and because of the great difficulty in getting the anatomy outlined well, conversion to open was done. Vianey incision was made. Bleeders were coagulated. Retractor was applied. The gallbladder, which was drained of approximately 50 mL of fluid which was sent for culture, was grasped and the serosa was detached from the rest of the gallbladder wall and retained with the gallbladder bed. Dissection was carried out sharply and bluntly towards the infundibulum. A solitary large stone was found lodged in the infundibulum. Right angle clamp was applied and the cystic duct was transected and ligated with 2-0 silk. Cystic artery was clipped and divided likewise. Irrigation with saline solution was carried out and some oozing in the liver bed was cauterized. Following satisfactory hemostasis, Chris-Ge drain was left in the liver bed and peritoneal shunt catheter was replaced in the abdominal cavity. The abdominal incision was closed with running suture of #1 PDS. Skin was closed with subcuticular suture of 4-0 Vicryl. Dermabond and 4x4 was placed over this. The patient tolerated the procedure well. [facility]# [id number] [facility] HEALTHDevaughn
--- NOTE | 2017-05-12 13:11 | Internal Medicine Prog Note ---
Internal Medicine Subjective - Subjective Service Date: 05/12/17 (s/p frank lópez) Patient is:: awake, non-interactive Per staff patient has:: no adverse event Internal Medicine Objective - Results Result Diagrams: 05/12/17 04:09 05/12/17 04:09 Recent Labs: Laboratory Last Values WBC 8.9 Th/cmm (4.8-10.8) 05/12/17 04:09 RBC 3.92 Mil/cmm (3.80-5.10) 05/12/17 04:09 Hgb 12.0 gm/dL (12-16) 05/12/17 04:09 Hct 36.1 % (41.0-60) L 05/12/17 04:09 MCV 92.3 fl (81-100) 05/12/17 04:09 MCH 30.6 pg (27.0-31.0) 05/12/17 04:09 MCHC Differential 33.2 pg (28.0-36.0) 05/12/17 04:09 RDW 13.9 % (11.5-20.0) 05/12/17 04:09 Plt Count 233 Th/cmm (150-400) 05/12/17 04:09 MPV 9.8 fl 05/12/17 04:09 Neutrophils % 54.4 % (40.0-80.0) 05/12/17 04:09 Band Neutrophils % 4 % (0-10) 05/08/17 04:35 Lymphocytes % 32.0 % (20.0-50.0) 05/12/17 04:09 Monocytes % 10.1 % (2.0-10.0) H 05/12/17 04:09 Eosinophils % 3.1 % (0.0-5.0) 05/12/17 04:09 Basophils % 0.4 % (0.0-2.0) 05/12/17 04:09 Neutrophils (Manual) 69 % (40-80) 05/08/17 04:35 Lymphocytes 19 % (20-50) L 05/08/17 04:35 Monocytes 5 % (2-10) 05/08/17 04:35 Eosinophils 2 % (0-5) 05/08/17 04:35 Basophils 1 % (0-3) 05/08/17 04:35 Platelet Estimate ADEQUATE (NORMAL) 05/07/17 12:58 Platelet Morphology NORMAL (NORMAL) 05/07/17 12:58 RBC Morph Micro Appear NORMAL (NORMAL) 05/07/17 12:58 PT 12.0 SECONDS (9.5-11.5) H 05/07/17 12:58 INR 1.14 (0.5-1.4) 05/07/17 12:58 PTT (Actin FS) 24.5 SECONDS (26.0-38.0) L 05/07/17 12:58 Sodium 152 mEq/L (136-145) H 05/12/17 04:09 Potassium 3.6 mEq/L (3.5-5.1) 05/12/17 04:09 Chloride 120 mEq/L (98-107) H 05/12/17 04:09 Carbon Dioxide 28.4 mEq/L (21.0-31.0) 05/12/17 04:09 Anion Gap 7.2 (7.0-16.0) 05/12/17 04:09 BUN 6 mg/dL (7-25) L 05/12/17 04:09 Creatinine 0.5 mg/dL (0.6-1.2) L 05/12/17 04:09 Est GFR ( Amer) > 60.0 ml/min (>90) 05/12/17 04:09 Est GFR (Non-Af Amer) > 60.0 ml/min 05/12/17 04:09 BUN/Creatinine Ratio 12.0 05/12/17 04:09 Glucose 105 mg/dL (70-105) 05/12/17 04:09 POC Glucose 102 MG/DL (70 - 105) 05/10/17 11:07 Hemoglobin A1c % 5.3 % (4.0-6.0) 05/07/17 13:59 Whole Bld Lactic Acid 2.01 mmol/L (0.60-1.99) H* 05/07/17 15:03 Calcium 7.0 mg/dL (8.6-10.3) L 05/12/17 04:09 Phosphorus 3.6 mg/dL (2.5-5.0) 05/10/17 04:06 Magnesium 2.3 mg/dL (1.9-2.7) 05/11/17 04:11 Total Bilirubin 0.4 mg/dL (0.3-1.0) 05/12/17 04:09 Direct Bilirubin 0.21 mg/dL (0.0-0.2) H 05/11/17 04:11 AST 53 U/L (13-39) H 05/12/17 04:09 ALT 39 U/L (7-52) 05/12/17 04:09 Alkaline Phosphatase 68 U/L (34-104) 05/12/17 04:09 Ammonia 54 umol/L (16-53) H 05/08/17 04:35 Creatine Kinase 41 U/L (30-223) 05/07/17 12:58 Troponin I 0.06 ng/mL (0.01-0.05) H D 05/07/17 21:01 Total Protein 5.7 gm/dL (6.0-8.3) L 05/12/17 04:09 Albumin 2.8 gm/dL (3.7-5.3) L 05/12/17 04:09 Globulin 2.9 gm/dL 05/12/17 04:09 Albumin/Globulin Ratio 1.0 (1.0-1.8) 05/12/17 04:09 Lipase 176 U/L (11-82) H 05/08/17 04:35 Vitamin B12 882 pg/mL (211-946) 05/08/17 04:35 Folic Acid 6.0 ng/mL (>3.0) 05/08/17 04:35 TSH 0.55 uIU/ml (0.34-5.60) 05/08/17 04:35 Urine Source [place] 05/07/17 13:45 Urine Color ORANGE 05/07/17 13:45 Urine Clarity CLOUDY (CLEAR) H 05/07/17 13:45 Urine pH 5.5 (4.6 - 8.0) 05/07/17 13:45 Ur Specific [place] 1.025 (1.005-1.030) 05/07/17 13:45 Urine Protein 100 mg/dL (NEGATIVE) H 05/07/17 13:45 Urine Glucose (UA) NEGATIVE mg/dL (NEGATIVE) 05/07/17 13:45 Urine Ketones TRACE mg/dL (NEGATIVE) 05/07/17 13:45 Urine Blood SMALL (NEGATIVE) H 05/07/17 13:45 Urine Nitrate NEGATIVE (NEGATIVE) 05/07/17 13:45 Urine Bilirubin MODERATE (NEGATIVE) H 05/07/17 13:45 Urine Urobilinogen 1.0 E.U./dL (0.2 - 1.0) 05/07/17 13:45 Ur Leukocyte Esterase NEGATIVE (NEGATIVE) 05/07/17 13:45 Urine RBC 5-10 /hpf (0-5) H 05/07/17 13:45 Urine WBC 0-2 /hpf (0-5) 05/07/17 13:45 Ur Epithelial Cells FEW /lpf (FEW) 05/07/17 13:45 Amorphous Sediment MODERATE URATES (NONE SEEN) 05/07/17 13:45 Urine Bacteria 1+ /hpf (NONE SEEN) H 05/07/17 13:45 Urine Mucus MODERATE /lpf (FEW) 05/07/17 13:45 Urine Test NEGATIVE 05/07/17 13:45 Vancomycin Trough 24.0 ug/mL (10-20) H 05/11/17 08:00 Valproic Acid 25.4 ug/mL (50.0-100.0) L 05/07/17 13:06 - Physical Exam Vitals and I&O: Vital Signs Temp 97.2 F 05/12/17 10:50 Pulse 89 05/12/17 10:50 Resp 14 05/12/17 10:50 BP 98/57 05/12/17 10:50 Pulse Ox 100 05/12/17 12:00 Intake & Output 05/11/17 05/12/17 05/12/17 18:59 06:59 18:59 Intake Total 1040 1800 50 Output Total 1850 1200 Balance -810 600 50 Weight (lbs) 133 lb 2 oz 132 lb 1 oz Intake: Intake, IV Amount 300 1300 50 Cefepime 1 gm In Dextrose 50 50 50 5% 50 ml @ 100 mls/hr IV Q12H [facility] Rx#:[id number] Dextrose 5% 1,000 ml @ 80 1000 mls/hr IV .[id number] [facility] Rx#:[id number] Vancomycin HCl 1.25 gm In 250 250 Sodium Chloride 0.9% 250 ml @ 165 mls/hr IV Q12H [facility] Rx#:[id number] Oral 0 Tube Feeding 580 300 Other 160 200 Output: Urine 1850 1200 Other: # Bowel Movements 0 0 Active Medications: Current Medications Acetaminophen (Tylenol) 650 mg PO Q4H PRN PRN Reason: Mild Pain Or Fever above 101 Stop: 07/06/17 20:03 Acetaminophen/Hydrocodone Bitart ([place] 5mg/325mg) 1 tab PO Q6H PRN PRN Reason: Pain (Severe) Stop: 07/06/17 20:00 Al Hydrox/Mg Hydrox/Simethicone (Maalox) 30 ml PO Q6H PRN PRN Reason: Dyspepsia Stop: 07/06/17 20:03 Albuterol Sulfate (Albuterol 2.5mg/3ml Neb Ud) 2.5 mg HHN Q2HRT PRN PRN Reason: Shortness of Breath or Wheeze Stop: 07/06/17 20:03 Artificial Tears (Artificial Tears Ophth Soln) 1 drop EACH EYE BID [facility] Stop: 07/07/17 08:59 Last Admin: 05/12/17 09:02 Dose: 1 drop Divalproex Sodium (Depakote Sprinkle) 125 mg GT Q12HR [facility] PRN Reason: Protocol Stop: 07/07/17 11:59 Last Admin: 05/12/17 09:01 Dose: Not Given Docusate Sodium (Colace) 100 mg GT DAILY [facility] Stop: 07/07/17 12:59 Last Admin: 05/12/17 09:01 Dose: Not Given Ferrous Sulfate (Iron) 300 mg GT TID [facility] Stop: 07/07/17 13:59 Last Admin: 05/12/17 09:01 Dose: Not Given Heparin Sodium (Porcine) (Heparin) 5,000 units SUBQ Q12HR [facility] Stop: 07/07/17 20:59 Last Admin: 05/12/17 09:02 Dose: Not Given Cefepime HCl 1 gm/ Dextrose 50 mls @ 100 mls/hr IV Q12H [facility] Stop: 07/06/17 20:59 Last Infusion: 05/12/17 09:22 Dose: Infused Vancomycin HCl 1.25 gm/ Sodium (Chloride) 250 mls @ 165 mls/hr IV Q12H [facility] Stop: 07/09/17 20:59 Last Admin: 05/12/17 09:20 Dose: Not Given Dextrose (D5w) 1,000 mls @ 80 mls/hr IV .[id number] [facility] Stop: 07/06/17 20:14 Last Admin: 05/12/17 04:42 Dose: 80 mls/hr Insulin Aspart (Novolog) 0 units SUBQ DAILY [facility] PRN Reason: Protocol Stop: 07/10/17 08:59 Last Admin: 05/12/17 09:44 Dose: Not Given Ipratropium [place] (Atrovent Neb 0.5mg/2.5ml) 0.5 mg IH Q2HRT PRN PRN Reason: Shortness of Breath or Wheeze Stop: 07/06/17 20:03 Lactobacillus Rhamnosus (Culturelle) 1 each PO DAILY [facility] Stop: 07/08/17 08:59 Last Admin: 05/12/17 09:02 Dose: Not Given Latanoprost (Xalatan 0.005% [facility] Sol) 1 drop RIGHT EYE HS [facility] Stop: 07/06/17 20:59 Last Admin: 05/11/17 21:08 Dose: 1 drop Lorazepam (Ativan) 1 mg GT Q6H PRN; Protocol PRN Reason: Anxiety Stop: 07/06/17 20:00 Lorazepam (Ativan) 1 mg IV Q4H PRN; Protocol PRN Reason: Seizure Stop: 07/06/17 20:03 Last Admin: 05/12/17 04:09 Dose: 1 mg Midodrine (Proamatine) 10 mg PO TID [facility] Stop: 07/08/17 13:59 Last Admin: 05/12/17 09:02 Dose: Not Given Miscellaneous (Vancomycin Iv Per Pharmacy) 1 ea MC PRN [facility] Stop: 07/06/17 20:14 Miscellaneous (Vte Chemical Prophylaxis Screen/ Admission) 1 ea PRN PRN PRN Reason: PROTOCOL Stop: 07/07/17 12:25 Miscellaneous (Probiotic Screen) 1 ea MC PRN PRN PRN Reason: PROTOCOL Stop: 07/07/17 14:41 Morphine Sulfate (Morphine) 2 mg IVP Q2HR PRN PRN Reason: Pain (Severe) Stop: 07/11/17 12:55 Ondansetron HCl (Zofran) 4 mg IV Q8H PRN PRN Reason: Nausea / Vomiting Stop: 07/06/17 20:03 Pantoprazole Sodium (Protonix) 40 mg GT QDAC [facility] Stop: 07/07/17 08:59 Last Admin: 05/12/17 06:47 Dose: Not Given General: weak, alert HEENT: NC/AT, PERRLA Neck: Supple Lungs: CTAB Cardiovascular: RRR, Normal S1, Normal S2 Abdomen: soft, non-tender, non-distended Extremities: excoriation - Procedures Procedures: Procedures Procedure Code Date CHANGE FEEDING DEVICE IN UP INTEST TRACT, A[employer]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 [id number] 05/07/17 CHANGE GASTROSTOMY TUBE 11652 05/07/17 Internal Medicine Assmt/Plan - Assessment Assessment: SEPSIS ALOC HYPERNATREMIA HYPOKALEMIA GT MALFUNCTION ACUTE UTI S/P LAP MARS - Plan Plan: PAIN MGMT IVF FOR HYDRATION EMPIRIC IV ANTIBIOTICS MONITOR ELECTROLYTES CONTINUE CURRENT PLAN OF CARE Nutritional Asmnt/Malnutr-PDOC - Dietary Evaluation Malnutrition Findings (Please click <Entered> for more info): Nutritional Asmnt/Malnutrition Start: 05/08/17 11: 46 Text: Status: Complete Freq: Document 05/08/17 11:46 GSUN (Rec: 05/08/17 12:08 [id number]) Nutritional Asmnt/Malnutrition Patient General Information Nutritional Screening High Risk Screening Diagnosis ER: dehydration, possible sepsis with leukocytosis, DM Pertinent Medical Hx/Surgical Hx ER report: PUD/GERD, trauma brain injury, chronic anemia Subjective Information 37 year old female from SNF. Pt was awake, non-verbal, family at bedside. GI Dr. Ch arrived during visit to replace g-tube. Confirmed with RN and pt's chart, pt is tube feeding dependent with pureed [place] for oral gratification. No muscle fat wasting noted. Current Diet Order/ Nutrition Support Currently no diet order. Pertinent Medications D5w, Iron, Novolog, Vancomycin , Zofran, Protonix Pertinent Labs 05/07: A1c 5.3 05/08: sodium 163H, potassium 3 .4L, glucose 143H, total bilirubin 1.3H Nutritional Hx/Data Height 5 ft 7 in Height (Calculated Centimeters) 170.2 Current Weight (lbs) 139 lb Weight (Calculated Kilograms) 63.0 Weight (Calculated Grams) 58924.3 [place] Body Weight 135 Weight Status Approriate GI Symptoms Difficult in: Chewing Swallowing Food Allergies No Cultural/Ethnic/Taoism Belief [facility]: pureed with [place] for oral gratification. EN two trista bolus 5 cans per day, providing 1185ml and 2375kcal. Usual diet at home Refer to above. Skin Integrity/Comment: Robin 13. LEft arm non- pitting 3+. Estimated Nutritional Goals BEE in Kcals: Using Current wt Calories/Kcals/Kg CBW 139lb/63.2kg Kcals Calculated 1580-2212kcal (25-35kcal/kg, possible sepsis and 2375kcal at SNF) Protein: Using Current wt Protein Calculated 63-82g (1-1.3g/kg) Fluid: ml 1580-2212ml (1ml/kcal) Nutritional Problem 1. Problem Problem Increased kcal and prot needs related to Etiology possible hypermetabolic state, unknown aeb Signs/Symptoms: possible sepsis, pt receieves 2375kcal at [facility] Intervention/Recommendation Comments 1. Recommend Nutren 2.0 as pt toelrates this formula at [facility] at 40ml/hr x 24hrs, providing 960ml total volume, 1920kcal, and 81g protein. 2. Monitor glucose levels, if remains consistantly high, recommend Diabetisource at 70ml/hr x 24hrs, providing 1680ml total volume, 2016kcal, and 101g protein. 3. Recommend pureed [place] thick food items for oral gratification if needed as pt tolerates at [facility]. Expected Outcomes/Goals Expected Outcomes/Goals 1. Pt to meet 100% of estimated nutritional needs on tube feeding with tolerance.
--- NOTE | 2017-05-12 13:27 | Diagnostic Imaging Report ---
CHEST X-RAY: AP view INDICATION: Central line placement COMPARISON: Chest x-ray 05/09/2017 FINDINGS: Right-sided MAORI PHYSIOTHERAPIST shunt catheter is again noted. Left subclavian central line is seen with tip in SVC. Low lung volumes are seen with no focal consolidation or effusions. No evidence of pneumothorax. Heart size is normal. IMPRESSION: Interval left subclavian central line placement with tip in SVC. Low lung volumes are noted. No evidence of focal consolidation. No evidence of pneumothorax.
[2017-05-12] MEDS: Morphine Sulfate 2 mg/mL 1mL Syr IVP PRN ×2 (17:00→21:52)
--- NOTE | 2017-05-12 22:17 | Infectious Disease Prog Note ---
Infectious Disease Subjective - Review of Systems Service Date: 05/12/17 Events since last encounter: Lap to open maribel performed today. Subjective: No new change. no fever. Infectious Disease Objective - Results Result Diagrams: 05/14/17 05:29 05/14/17 05:29 Recent Labs: Laboratory Last Values WBC 8.9 Th/cmm (4.8-10.8) 05/12/17 04:09 RBC 3.92 Mil/cmm (3.80-5.10) 05/12/17 04:09 Hgb 12.0 gm/dL (12-16) 05/12/17 04:09 Hct 36.1 % (41.0-60) L 05/12/17 04:09 MCV 92.3 fl (81-100) 05/12/17 04:09 MCH 30.6 pg (27.0-31.0) 05/12/17 04:09 MCHC Differential 33.2 pg (28.0-36.0) 05/12/17 04:09 RDW 13.9 % (11.5-20.0) 05/12/17 04:09 Plt Count 233 Th/cmm (150-400) 05/12/17 04:09 MPV 9.8 fl 05/12/17 04:09 Neutrophils % 54.4 % (40.0-80.0) 05/12/17 04:09 Band Neutrophils % 4 % (0-10) 05/08/17 04:35 Lymphocytes % 32.0 % (20.0-50.0) 05/12/17 04:09 Monocytes % 10.1 % (2.0-10.0) H 05/12/17 04:09 Eosinophils % 3.1 % (0.0-5.0) 05/12/17 04:09 Basophils % 0.4 % (0.0-2.0) 05/12/17 04:09 Neutrophils (Manual) 69 % (40-80) 05/08/17 04:35 Lymphocytes 19 % (20-50) L 05/08/17 04:35 Monocytes 5 % (2-10) 05/08/17 04:35 Eosinophils 2 % (0-5) 05/08/17 04:35 Basophils 1 % (0-3) 05/08/17 04:35 Platelet Estimate ADEQUATE (NORMAL) 05/07/17 12:58 Platelet Morphology NORMAL (NORMAL) 05/07/17 12:58 RBC Morph Micro Appear NORMAL (NORMAL) 05/07/17 12:58 PT 12.0 SECONDS (9.5-11.5) H 05/07/17 12:58 INR 1.14 (0.5-1.4) 05/07/17 12:58 PTT (Actin FS) 24.5 SECONDS (26.0-38.0) L 05/07/17 12:58 Sodium 152 mEq/L (136-145) H 05/12/17 04:09 Potassium 3.6 mEq/L (3.5-5.1) 05/12/17 04:09 Chloride 120 mEq/L (98-107) H 05/12/17 04:09 Carbon Dioxide 28.4 mEq/L (21.0-31.0) 05/12/17 04:09 Anion Gap 7.2 (7.0-16.0) 05/12/17 04:09 BUN 6 mg/dL (7-25) L 05/12/17 04:09 Creatinine 0.5 mg/dL (0.6-1.2) L 05/12/17 04:09 Est GFR ( Amer) > 60.0 ml/min (>90) 05/12/17 04:09 Est GFR (Non-Af Amer) > 60.0 ml/min 05/12/17 04:09 BUN/Creatinine Ratio 12.0 05/12/17 04:09 Glucose 105 mg/dL (70-105) 05/12/17 04:09 POC Glucose 102 MG/DL (70 - 105) 05/10/17 11:07 Hemoglobin A1c % 5.3 % (4.0-6.0) 05/07/17 13:59 Whole Bld Lactic Acid 2.01 mmol/L (0.60-1.99) H* 05/07/17 15:03 Calcium 7.0 mg/dL (8.6-10.3) L 05/12/17 04:09 Phosphorus 3.6 mg/dL (2.5-5.0) 05/10/17 04:06 Magnesium 2.3 mg/dL (1.9-2.7) 05/11/17 04:11 Total Bilirubin 0.4 mg/dL (0.3-1.0) 05/12/17 04:09 Direct Bilirubin 0.21 mg/dL (0.0-0.2) H 05/11/17 04:11 AST 53 U/L (13-39) H 05/12/17 04:09 ALT 39 U/L (7-52) 05/12/17 04:09 Alkaline Phosphatase 68 U/L (34-104) 05/12/17 04:09 Ammonia 54 umol/L (16-53) H 05/08/17 04:35 Creatine Kinase 41 U/L (30-223) 05/07/17 12:58 Troponin I 0.06 ng/mL (0.01-0.05) H D 05/07/17 21:01 Total Protein 5.7 gm/dL (6.0-8.3) L 05/12/17 04:09 Albumin 2.8 gm/dL (3.7-5.3) L 05/12/17 04:09 Globulin 2.9 gm/dL 05/12/17 04:09 Albumin/Globulin Ratio 1.0 (1.0-1.8) 05/12/17 04:09 Lipase 176 U/L (11-82) H 05/08/17 04:35 Vitamin B12 882 pg/mL (211-946) 05/08/17 04:35 Folic Acid 6.0 ng/mL (>3.0) 05/08/17 04:35 TSH 0.55 uIU/ml (0.34-5.60) 05/08/17 04:35 Urine Source [place] 05/07/17 13:45 Urine Color ORANGE 05/07/17 13:45 Urine Clarity CLOUDY (CLEAR) H 05/07/17 13:45 Urine pH 5.5 (4.6 - 8.0) 05/07/17 13:45 Ur Specific [place] 1.025 (1.005-1.030) 05/07/17 13:45 Urine Protein 100 mg/dL (NEGATIVE) H 05/07/17 13:45 Urine Glucose (UA) NEGATIVE mg/dL (NEGATIVE) 05/07/17 13:45 Urine Ketones TRACE mg/dL (NEGATIVE) 05/07/17 13:45 Urine Blood SMALL (NEGATIVE) H 05/07/17 13:45 Urine Nitrate NEGATIVE (NEGATIVE) 05/07/17 13:45 Urine Bilirubin MODERATE (NEGATIVE) H 05/07/17 13:45 Urine Urobilinogen 1.0 E.U./dL (0.2 - 1.0) 05/07/17 13:45 Ur Leukocyte Esterase NEGATIVE (NEGATIVE) 05/07/17 13:45 Urine RBC 5-10 /hpf (0-5) H 05/07/17 13:45 Urine WBC 0-2 /hpf (0-5) 05/07/17 13:45 Ur Epithelial Cells FEW /lpf (FEW) 05/07/17 13:45 Amorphous Sediment MODERATE URATES (NONE SEEN) 05/07/17 13:45 Urine Bacteria 1+ /hpf (NONE SEEN) H 05/07/17 13:45 Urine Mucus MODERATE /lpf (FEW) 05/07/17 13:45 Urine Test NEGATIVE 05/07/17 13:45 Vancomycin Trough 24.0 ug/mL (10-20) H 05/11/17 08:00 Random Vancomycin 15.5 ug/mL (5.0-40.0) 05/12/17 13:00 Valproic Acid 25.4 ug/mL (50.0-100.0) L 05/07/17 13:06 - Physical Exam Vitals and I&O: Vital Signs Temp 98.4 F 05/12/17 20:00 Pulse 114 05/12/17 21:00 Resp 19 05/12/17 21:00 BP 94/60 05/12/17 21:00 Pulse Ox 99 05/12/17 21:00 Intake & Output 05/12/17 05/12/17 05/13/17 06:59 18:59 06:59 Intake Total 1800 300 50 Output Total 1200 830 Balance 600 -530 50 Weight (lbs) 59.903 kg 59.903 kg Intake: Intake, IV Amount 1300 300 50 Cefepime 1 gm In Dextrose 50 50 50 5% 50 ml @ 100 mls/hr IV Q12H [facility] Rx#:[id number] Dextrose 5% 1,000 ml @ 80 1000 mls/hr IV .[id number] [facility] Rx#:[id number] Vancomycin HCl 1 gm In 250 Sodium Chloride 0.9% 250 ml @ 165 mls/hr IV Q18H [facility] Rx#:[id number] Vancomycin HCl 1.25 gm In 250 Sodium Chloride 0.9% 250 ml @ 165 mls/hr IV Q12H [facility] Rx#:[id number] Oral 0 Tube Feeding 300 Other 200 Output: Drainage 80 Right Abdomen 80 Urine 1200 750 Other: # Bowel Movements 0 Active Medications: Current Medications Acetaminophen (Tylenol) 650 mg PO Q4H PRN PRN Reason: Mild Pain Or Fever above 101 Stop: 07/06/17 20:03 Acetaminophen/Hydrocodone Bitart ([place] 5mg/325mg) 1 tab PO Q6H PRN PRN Reason: Pain (Severe) Stop: 07/06/17 20:00 Al Hydrox/Mg Hydrox/Simethicone (Maalox) 30 ml PO Q6H PRN PRN Reason: Dyspepsia Stop: 07/06/17 20:03 Albuterol Sulfate (Albuterol 2.5mg/3ml Neb Ud) 2.5 mg HHN Q2HRT PRN PRN Reason: Shortness of Breath or Wheeze Stop: 07/06/17 20:03 Artificial Tears (Artificial Tears Oph Soln) 1 drop EACH EYE BID [facility] Stop: 07/07/17 08:59 Last Admin: 05/12/17 16:32 Dose: 1 drop Divalproex Sodium (Depakote Sprinkle) 125 mg GT Q12HR [facility] PRN Reason: Protocol Stop: 07/07/17 11:59 Last Admin: 05/12/17 20:55 Dose: Not Given Docusate Sodium (Colace) 100 mg GT DAILY [facility] Stop: 07/07/17 12:59 Last Admin: 05/12/17 09:01 Dose: Not Given Ferrous Sulfate (Iron) 300 mg GT TID [facility] Stop: 07/07/17 13:59 Last Admin: 05/12/17 20:56 Dose: Not Given Heparin Sodium (Porcine) (Heparin) 5,000 units SUBQ Q12HR [facility] Stop: 07/07/17 20:59 Last Admin: 05/12/17 20:56 Dose: Not Given Cefepime HCl 1 gm/ Dextrose 50 mls @ 100 mls/hr IV Q12H [facility] Stop: 07/06/17 20:59 Last Infusion: 05/12/17 21:20 Dose: Infused Dextrose (D5w) 1,000 mls @ 80 mls/hr IV .[id number] [facility] Stop: 07/06/17 20:14 Last Admin: 05/12/17 04:42 Dose: 80 mls/hr Vancomycin HCl 1 gm/ Sodium (Chloride) 250 mls @ 165 mls/hr IV Q18H [facility] Stop: 07/11/17 15:59 Last Infusion: 05/12/17 18:05 Dose: Infused Insulin Aspart (Novolog) 0 units SUBQ DAILY [facility] PRN Reason: Protocol Stop: 07/10/17 08:59 Last Admin: 05/12/17 09:44 Dose: Not Given Ipratropium [place] (Atrovent Neb 0.5mg/2.5ml) 0.5 mg IH Q2HRT PRN PRN Reason: Shortness of Breath or Wheeze Stop: 07/06/17 20:03 Lactobacillus Rhamnosus (Culturelle) 1 each PO DAILY [facility] Stop: 07/08/17 08:59 Last Admin: 05/12/17 09:02 Dose: Not Given Latanoprost (Xalatan 0.005% [facility] Soln) 1 drop RIGHT EYE HS [facility] Stop: 07/06/17 20:59 Last Admin: 05/12/17 20:59 Dose: 1 drop Lorazepam (Ativan) 1 mg GT Q6H PRN; Protocol PRN Reason: Anxiety Stop: 07/06/17 20:00 Lorazepam (Ativan) 1 mg IV Q4H PRN; Protocol PRN Reason: Seizure Stop: 07/06/17 20:03 Last Admin: 05/12/17 04:09 Dose: 1 mg Midodrine (Proamatine) 10 mg PO TID [facility] Stop: 07/08/17 13:59 Last Admin: 05/12/17 20:58 Dose: Not Given Miscellaneous (Vancomycin Iv Per Pharmacy) 1 ea MC PRN [facility] Stop: 07/06/17 20:14 Miscellaneous (Vte Chemical Prophylaxis Screen/ Admission) 1 ea MC PRN PRN PRN Reason: PROTOCOL Stop: 07/07/17 12:25 Miscellaneous (Probiotic Screen) 1 ea MC PRN PRN PRN Reason: PROTOCOL Stop: 07/07/17 14:41 Morphine Sulfate (Morphine) 2 mg IVP Q2HR PRN PRN Reason: Pain (Severe) Stop: 07/11/17 12:55 Last Admin: 05/12/17 21:52 Dose: 2 mg Ondansetron HCl (Zofran) 4 mg IV Q8H PRN PRN Reason: Nausea / Vomiting Stop: 07/06/17 20:03 Pantoprazole Sodium (Protonix) 40 mg GT QDAC [facility] Stop: 07/07/17 08:59 Last Admin: 05/12/17 06:47 Dose: Not Given General: no acute distress HEENT: atraumatic, normocephalic, PERRLA Neck: supple, no thyromegaly Cardiovascular: S1S2, irregular Lungs: clear to auscultation bilaterally, clear to percussion Abdomen: soft, bowel sounds, no tender, no distended, no guarding Extremities: no cyanosis, no clubbing, no edema Neurological: awake, alert Skin: intact - Procedures Procedures: Procedures Procedure Code Date CHANGE FEEDING DEVICE IN UP INTEST TRACT, RUBBER MOLD MAKER APPROACH [id number] 05/07/17 CHANGE GASTROSTOMY TUBE 34857 05/07/17 Infectious Disease Assmt/Plan - Problem List Patient Problems: All Active Problems Atypical chest pain (Active) R07.89 - Assessment Assessment: 1. Acute cholecytitis. 2. 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 Traumatic brain injury. 4. Dehydration. 5. Altered mental status, due to metabolic encephalopathy 6. Hypernatremia. Plan: Conitnue the same antibiotics, cefepime and vanco IV. - Plan Plan: Continue the same antibiotics, cefepime and vanco IV. Nutritional Asmnt/Malnutr-PDOC - Dietary Evaluation Malnutrition Findings (Please click <Entered> for more info): Nutritional Asmnt/Malnutrition Start: 05/08/17 11: 46 Text: Status: Complete Freq: Document 05/08/17 11:46 GSUN (Rec: 05/08/17 12:08 GSUN [email or web address]) Nutritional Asmnt/Malnutrition Patient General Information Nutritional Screening High Risk Screening Diagnosis ER: dehydration, possible sepsis with leukocytosis, DM Pertinent Medical Hx/Surgical Hx ER report: PUD/GERD, trauma brain injury, chronic anemia Subjective Information 37 year old female from SNF. Pt was awake, non-verbal, family at bedside. GI Dr. Ch arrived during visit to replace g-tube. Confirmed with RN and pt's chart, pt is tube feeding dependent with pureed [place] for oral gratification. No muscle fat wasting noted. Current Diet Order/ Nutrition Support Currently no diet order. Pertinent Medications D5w, Iron, Novolog, Vancomycin , Zofran, Protonix Pertinent Labs 05/07: A1c 5.3 05/08: sodium 163H, potassium 3 .4L, glucose 143H, total bilirubin 1.3H Nutritional Hx/Data Height 1.7 m Height (Calculated Centimeters) 170.2 Current Weight (lbs) 63.049 kg Weight (Calculated Kilograms) 63.0 Weight (Calculated Grams) 77581.3 [place] Body Weight 135 Weight Status Approriate GI Symptoms Difficult in: Chewing Swallowing Food Allergies No Cultural/Ethnic/Scientologist Belief [facility]: pureed with [place] for oral gratification. EN two trista bolus 5 cans per day, providing 1185ml and 2375kcal. Usual diet at home Refer to above. Skin Integrity/Comment: Robin 13. LEft arm non- pitting 3+. Estimated Nutritional Goals BEE in Kcals: Using Current wt Calories/Kcals/Kg CBW 139lb/63.2kg Kcals Calculated 1580-2212kcal (25-35kcal/kg, possible sepsis and 2375kcal at SNF) Protein: Using Current wt Protein Calculated 63-82g (1-1.3g/kg) Fluid: ml 1580-2212ml (1ml/kcal) Nutritional Problem 1. Problem Problem Increased kcal and prot needs related to Etiology possible hypermetabolic state, unknown aeb Signs/Symptoms: possible sepsis, pt receieves 2375kcal at [facility] Intervention/Recommendation Comments 1. Recommend Nutren 2.0 as pt toelrates this formula at [facility] at 40ml/hr x 24hrs, providing 960ml total volume, 1920kcal, and 81g protein. 2. Monitor glucose levels, if remains consistantly high, recommend Diabetisource at 70ml/hr x 24hrs, providing 1680ml total volume, 2016kcal, and 101g protein. 3. Recommend pureed [place] thick food items for oral gratification if needed as pt tolerates at SNF. Expected Outcomes/Goals Expected Outcomes/Goals 1. Pt to meet 100% of estimated nutritional needs on tube feeding with tolerance.
[2017-05-13 06:24] LABS: MEAN CELL VOLUME 91.2 fl (81-100); MEAN CORPUSCULAR HEMOGLOBIN 31.6 pg (27.0-31.0); MEAN CORPUSCULAR HGB CONC 34.7 pg (28.0-36.0); MEAN PLATELET VOLUME 9.9 fl; PLATELET COUNT 249 Th/cmm (150-400); RED BLOOD COUNT 3.48 Mil/cmm (3.80-5.10); RED CELL DISTRIBUTION WIDTH 13.7 % (11.5-20.0)
[2017-05-13 06:36] LABS: HEMATOCRIT 31.7 % (41.0-60); WHITE BLOOD COUNT 15.5 Th/cmm (4.8-10.8)
[2017-05-13 06:41] LABS: BUN - UREA NITROGEN 7 mg/dL (7-25); BUN/CREATININE RATIO 17.5; CALCIUM SERUM 6.9 mg/dL (8.6-10.3); CARBON DIOXIDE 28.1 mEq/L (21.0-31.0); CHLORIDE 107 mEq/L (98-107); CREATININE - SERUM 0.4 mg/dL (0.6-1.2); GLUCOSE 111 mg/dL (70-105); POTASSIUM SERUM 3.1 mEq/L (3.5-5.1); SODIUM SERUM 139 mEq/L (136-145)
[2017-05-13] MEDS: Pantoprazole 40 mg/Packet GT SCH (06:59)
[2017-05-13] MEDS: Dextrose 5% 1,000 ML IV SCH (07:00)
[2017-05-13 07:20] LABS: BAND NEUTROPHILE 5 % (0-10); NEUTROPHILS 67 % (40-80); TOTAL CELLS COUNTED 100
[2017-05-13] MEDS: Morphine Sulfate 2 mg/mL 1mL Syr IVP PRN ×4 (07:55→22:43)
[2017-05-13] MEDS: Docusate Sodium 100 mg/10 mL UD GT SCH (08:14)
[2017-05-13] MEDS: Ferrous Sulfate 300 MG/5 ML UDC GT SCH ×3 (08:14→20:07)
[2017-05-13] MEDS: Lactobacillus Rhamnosus 10 Billion CFU Capsule PO SCH (08:14)
[2017-05-13] MEDS: Polyvinyl Alcohol Ophth Soln 15 mL Bottle EACH EYE SCH ×2 (08:15→17:52)
[2017-05-13] MEDS: INSULIN ASPART, RECOMBINANT 100 UNITS/ML SUBQ SCH (08:57)
--- NOTE | 2017-05-13 10:33 | General Progress Note ---
Subjective - Review of Systems Service Date: 05/13/17 Events since last encounter: labs noted, no LFT - ordered minimal AZIZA drain Objective - Results Result Diagrams: 05/13/17 05:25 05/13/17 05:25 Recent Labs: Laboratory Last Values WBC 15.5 Th/cmm (4.8-10.8) H D 05/13/17 05:25 RBC 3.48 Mil/cmm (3.80-5.10) L 05/13/17 05:25 Hgb 11.0 gm/dL (12-16) L 05/13/17 05:25 Hct 31.7 % (41.0-60) L D 05/13/17 05:25 MCV 91.2 fl (81-100) 05/13/17 05:25 MCH 31.6 pg (27.0-31.0) H 05/13/17 05:25 MCHC Differential 34.7 pg (28.0-36.0) 05/13/17 05:25 RDW 13.7 % (11.5-20.0) 05/13/17 05:25 Plt Count 249 Th/cmm (150-400) 05/13/17 05:25 MPV 9.9 fl 05/13/17 05:25 Neutrophils % 54.4 % (40.0-80.0) 05/12/17 04:09 Band Neutrophils % 5 % (0-10) 05/13/17 05:25 Lymphocytes % 32.0 % (20.0-50.0) 05/12/17 04:09 Monocytes % 10.1 % (2.0-10.0) H 05/12/17 04:09 Eosinophils % 3.1 % (0.0-5.0) 05/12/17 04:09 Basophils % 0.4 % (0.0-2.0) 05/12/17 04:09 Neutrophils (Manual) 67 % (40-80) 05/13/17 05:25 Lymphocytes 24 % (20-50) 05/13/17 05:25 Monocytes 4 % (2-10) 05/13/17 05:25 Eosinophils 2 % (0-5) 05/08/17 04:35 Basophils 1 % (0-3) 05/08/17 04:35 Platelet Estimate ADEQUATE (NORMAL) 05/07/17 12:58 Platelet Morphology NORMAL (NORMAL) 05/07/17 12:58 RBC Morph Micro Appear NORMAL (NORMAL) 05/07/17 12:58 PT 12.0 SECONDS (9.5-11.5) H 05/07/17 12:58 INR 1.14 (0.5-1.4) 05/07/17 12:58 PTT (Actin FS) 24.5 SECONDS (26.0-38.0) L 05/07/17 12:58 Sodium 139 mEq/L (136-145) 05/13/17 05:25 Potassium 3.1 mEq/L (3.5-5.1) L 05/13/17 05:25 Chloride 107 mEq/L (98-107) 05/13/17 05:25 Carbon Dioxide 28.1 mEq/L (21.0-31.0) 05/13/17 05:25 Anion Gap 7.0 (7.0-16.0) 05/13/17 05:25 BUN 7 mg/dL (7-25) 05/13/17 05:25 Creatinine 0.4 mg/dL (0.6-1.2) L 05/13/17 05:25 Est GFR ( Amer) > 60.0 ml/min (>90) 05/13/17 05:25 Est GFR (Non-Af Amer) > 60.0 ml/min 05/13/17 05:25 BUN/Creatinine Ratio 17.5 05/13/17 05:25 Glucose 111 mg/dL (70-105) H 05/13/17 05:25 POC Glucose 140 MG/DL (70 - 105) H 05/13/17 08:54 Hemoglobin A1c % 5.3 % (4.0-6.0) 05/07/17 13:59 Whole Bld Lactic Acid 2.01 mmol/L (0.60-1.99) H* 05/07/17 15:03 Calcium 6.9 mg/dL (8.6-10.3) L 05/13/17 05:25 Phosphorus 3.6 mg/dL (2.5-5.0) 05/10/17 04:06 Magnesium 2.3 mg/dL (1.9-2.7) 05/11/17 04:11 Total Bilirubin 0.4 mg/dL (0.3-1.0) 05/12/17 04:09 Direct Bilirubin 0.21 mg/dL (0.0-0.2) H 05/11/17 04:11 AST 53 U/L (13-39) H 05/12/17 04:09 ALT 39 U/L (7-52) 05/12/17 04:09 Alkaline Phosphatase 68 U/L (34-104) 05/12/17 04:09 Ammonia 54 umol/L (16-53) H 05/08/17 04:35 Creatine Kinase 41 U/L (30-223) 05/07/17 12:58 Troponin I 0.06 ng/mL (0.01-0.05) H D 05/07/17 21:01 Total Protein 5.7 gm/dL (6.0-8.3) L 05/12/17 04:09 Albumin 2.8 gm/dL (3.7-5.3) L 05/12/17 04:09 Globulin 2.9 gm/dL 05/12/17 04:09 Albumin/Globulin Ratio 1.0 (1.0-1.8) 05/12/17 04:09 Lipase 176 U/L (11-82) H 05/08/17 04:35 Vitamin B12 882 pg/mL (211-946) 05/08/17 04:35 Folic Acid 6.0 ng/mL (>3.0) 05/08/17 04:35 TSH 0.55 uIU/ml (0.34-5.60) 05/08/17 04:35 Urine Source [place] 05/07/17 13:45 Urine Color ORANGE 05/07/17 13:45 Urine Clarity CLOUDY (CLEAR) H 05/07/17 13:45 Urine pH 5.5 (4.6 - 8.0) 05/07/17 13:45 Ur Specific [place] 1.025 (1.005-1.030) 05/07/17 13:45 Urine Protein 100 mg/dL (NEGATIVE) H 05/07/17 13:45 Urine Glucose (UA) NEGATIVE mg/dL (NEGATIVE) 05/07/17 13:45 Urine Ketones TRACE mg/dL (NEGATIVE) 05/07/17 13:45 Urine Blood SMALL (NEGATIVE) H 05/07/17 13:45 Urine Nitrate NEGATIVE (NEGATIVE) 05/07/17 13:45 Urine Bilirubin MODERATE (NEGATIVE) H 05/07/17 13:45 Urine Urobilinogen 1.0 E.U./dL (0.2 - 1.0) 05/07/17 13:45 Ur Leukocyte Esterase NEGATIVE (NEGATIVE) 05/07/17 13:45 Urine RBC 5-10 /hpf (0-5) H 05/07/17 13:45 Urine WBC 0-2 /hpf (0-5) 05/07/17 13:45 Ur Epithelial Cells FEW /lpf (FEW) 05/07/17 13:45 Amorphous Sediment MODERATE URATES (NONE SEEN) 05/07/17 13:45 Urine Bacteria 1+ /hpf (NONE SEEN) H 05/07/17 13:45 Urine Mucus MODERATE /lpf (FEW) 05/07/17 13:45 Urine Test NEGATIVE 05/07/17 13:45 Vancomycin Trough 11.1 ug/mL (10-20) 05/13/17 05:25 Random Vancomycin 15.5 ug/mL (5.0-40.0) 05/12/17 13:00 Valproic Acid 25.4 ug/mL (50.0-100.0) L 05/07/17 13:06 - Physical Exam Vitals and I&O: Vital Signs Temp 99.1 F 05/13/17 10:00 Pulse 100 05/13/17 10:00 Resp 17 05/13/17 10:00 BP 100/61 05/13/17 10:00 Pulse Ox 97 05/13/17 10:00 Intake & Output 05/12/17 05/13/17 05/13/17 18:59 06:59 18:59 Intake Total 484 50 50 Output Total 830 470 Balance -346 50 -420 Weight (lbs) 59.903 kg 59.058 kg Intake: Intake, IV Amount 484 50 50 Cefepime 1 gm In Dextrose 50 50 50 5% 50 ml @ 100 mls/hr IV Q12H [facility] Rx#:[id number] Dextrose 5% 1,000 ml @ 80 184 mls/hr IV .[id number] [facility] Rx#:[id number] Vancomycin HCl 1 gm In 250 Sodium Chloride 0.9% 250 ml @ 165 mls/hr IV Q18H [facility] Rx#:[id number] Output: Drainage 80 70 Right Abdomen 80 70 Urine 750 400 Other: # Bowel Movements 0 Active Medications: Current Medications Acetaminophen (Tylenol) 650 mg PO Q4H PRN PRN Reason: Mild Pain Or Fever above 101 Stop: 07/06/17 20:03 Acetaminophen/Hydrocodone Bitart ([place] 5mg/325mg) 1 tab PO Q6H PRN PRN Reason: Pain (Severe) Stop: 07/06/17 20:00 Al Hydrox/Mg Hydrox/Simethicone (Maalox) 30 ml PO Q6H PRN PRN Reason: Dyspepsia Stop: 07/06/17 20:03 Albuterol Sulfate (Albuterol 2.5mg/3ml Neb Ud) 2.5 mg HHN Q2HRT PRN PRN Reason: Shortness of Breath or Wheeze Stop: 07/06/17 20:03 Artificial Tears (Artificial Tears Ophth Soln) 1 drop EACH EYE BID [facility] Stop: 07/07/17 08:59 Last Admin: 05/13/17 08:15 Dose: 1 drop Divalproex Sodium (Depakote Sprinkle) 125 mg GT Q12HR [facility] PRN Reason: Protocol Stop: 07/07/17 11:59 Last Admin: 05/13/17 08:15 Dose: Not Given Docusate Sodium (Colace) 100 mg GT DAILY [facility] Stop: 07/07/17 12:59 Last Admin: 05/13/17 08:14 Dose: Not Given Ferrous Sulfate (Iron) 300 mg GT TID [facility] Stop: 07/07/17 13:59 Last Admin: 05/13/17 08:14 Dose: Not Given Heparin Sodium (Porcine) (Heparin) 5,000 units SUBQ Q12HR [facility] Stop: 07/07/17 20:59 Last Admin: 05/13/17 08:50 Dose: 5,000 units Cefepime HCl 1 gm/ Dextrose 50 mls @ 100 mls/hr IV Q12H [facility] Stop: 07/06/17 20:59 Last Infusion: 05/13/17 08:45 Dose: Infused Dextrose (D5w) 1,000 mls @ 80 mls/hr IV .[id number] [facility] Stop: 07/06/17 20:14 Last Admin: 05/13/17 07:00 Dose: 80 mls/hr Vancomycin HCl 1 gm/ Sodium (Chloride) 250 mls @ 165 mls/hr IV Q18H [facility] Stop: 07/11/17 15:59 Last Admin: 05/13/17 10:00 Dose: 165 mls/hr Insulin Aspart (Novolog) 0 units SUBQ DAILY [facility] PRN Reason: Protocol Stop: 07/10/17 08:59 Last Admin: 05/13/17 08:57 Dose: Not Given Ipratropium [place] (Atrovent Neb 0.5mg/2.5ml) 0.5 mg IH Q2HRT PRN PRN Reason: Shortness of Breath or Wheeze Stop: 07/06/17 20:03 Lactobacillus Rhamnosus (Culturelle) 1 each PO DAILY [facility] Stop: 07/08/17 08:59 Last Admin: 05/13/17 08:14 Dose: Not Given Latanoprost (Xalatan 0.005% Oph Soln) 1 drop RIGHT EYE HS [facility] Stop: 07/06/17 20:59 Last Admin: 05/12/17 20:59 Dose: 1 drop Lorazepam (Ativan) 1 mg GT Q6H PRN; Protocol PRN Reason: Anxiety Stop: 07/06/17 20:00 Lorazepam (Ativan) 1 mg IV Q4H PRN; Protocol PRN Reason: Seizure Stop: 07/06/17 20:03 Last Admin: 05/12/17 04:09 Dose: 1 mg Midodrine (Proamatine) 10 mg PO TID [facility] Stop: 07/08/17 13:59 Last Admin: 05/13/17 08:15 Dose: Not Given Miscellaneous (Vancomycin Iv Per Pharmacy) 1 ea MC PRN [facility] Stop: 07/06/17 20:14 Miscellaneous (Vte Chemical Prophylaxis Screen/ Admission) 1 ea MC PRN PRN PRN Reason: PROTOCOL Stop: 07/07/17 12:25 Miscellaneous (Probiotic Screen) 1 ea MC PRN PRN PRN Reason: PROTOCOL Stop: 07/07/17 14:41 Morphine Sulfate (Morphine) 2 mg IVP Q2HR PRN PRN Reason: Pain (Severe) Stop: 07/11/17 12:55 Last Admin: 05/13/17 07:55 Dose: 2 mg Ondansetron HCl (Zofran) 4 mg IV Q8H PRN PRN Reason: Nausea / Vomiting Stop: 07/06/17 20:03 Pantoprazole Sodium (Protonix) 40 mg GT QDAC [facility] Stop: 07/07/17 08:59 Last Admin: 05/13/17 06:59 Dose: Not Given - Procedures Procedures: Procedures Procedure Code Date CHANGE FEEDING DEVICE IN UP INTEST TRACT, MECHANIC INSULATOR APPROACH [id number] 05/07/17 CHANGE GASTROSTOMY TUBE [id number] 05/07/17 Assessment/Plan - Problem List Patient Problems: All Active Problems Atypical chest pain (Active) R07.89 Nutritional Asmnt/Malnutr-PDOC - Dietary Evaluation Malnutrition Findings (Please click <Entered> for more info): Nutritional Asmnt/Malnutrition Start: 05/08/17 11: 46 Text: Status: Complete Freq: Document 05/08/17 11:46 JUAN LUIS (Rec: 05/08/17 12:08 JUAN LUIS [email or web address]) Nutritional Asmnt/Malnutrition Patient General Information Nutritional Screening High Risk Screening Diagnosis ER: dehydration, possible sepsis with leukocytosis, DM Pertinent Medical Hx/Surgical Hx ER report: PUD/GERD, trauma brain injury, chronic anemia Subjective Information 37 year old female from SNF. Pt was awake, non-verbal, family at bedside. GI Dr. Ch arrived during visit to replace g-tube. Confirmed with RN and pt's chart, pt is tube feeding dependent with pureed Effort for oral gratification. No muscle fat wasting noted. Current Diet Order/ Nutrition Support Currently no diet order. Pertinent Medications D5w, Iron, Novolog, Vancomycin , Zofran, Protonix Pertinent Labs 05/07: A1c 5.3 05/08: sodium 163H, potassium 3 .4L, glucose 143H, total bilirubin 1.3H Nutritional Hx/Data Height 1.7 m Height (Calculated Centimeters) 170.2 Current Weight (lbs) 63.049 kg Weight (Calculated Kilograms) 63.0 Weight (Calculated Grams) 69183.3 [place] Body Weight 135 Weight Status Approriate GI Symptoms Difficult in: Chewing Swallowing Food Allergies No Cultural/Ethnic/[employer] [facility]: pureed with Effort for oral gratification. EN two trista bolus 5 cans per day, providing 1185ml and 2375kcal. Usual diet at home Refer to above. Skin Integrity/Comment: Robin 13. LEft arm non- pitting 3+. Estimated Nutritional Goals BEE in Kcals: Using Current wt Calories/Kcals/Kg CBW 139lb/63.2kg Kcals Calculated 1580-2212kcal (25-35kcal/kg, possible sepsis and 2375kcal at SNF) Protein: Using Current wt Protein Calculated 63-82g (1-1.3g/kg) Fluid: ml 1580-2212ml (1ml/kcal) Nutritional Problem 1. Problem Problem Increased kcal and prot needs related to Etiology possible hypermetabolic state, unknown aeb Signs/Symptoms: possible sepsis, pt receieves 2375kcal at [facility] Intervention/Recommendation Comments 1. Recommend Nutren 2.0 as pt toelrates this formula at [facility] at 40ml/hr x 24hrs, providing 960ml total volume, 1920kcal, and 81g protein. 2. Monitor glucose levels, if remains consistantly high, recommend Diabetisource at 70ml/hr x 24hrs, providing 1680ml total volume, 2016kcal, and 101g protein. 3. Recommend pureed Effort thick food items for oral gratification if needed as pt tolerates at [facility]. Expected Outcomes/Goals Expected Outcomes/Goals 1. Pt to meet 100% of estimated nutritional needs on tube feeding with tolerance.
[2017-05-13 11:00] LABS: ALB/GLOB RATIO 1.1 (1.0-1.8); BILIRUBIN,DIRECT 0.2 mg/dL (0.0-0.2); BILIRUBIN,TOTAL 0.5 mg/dL (0.3-1.0)
[2017-05-13] MEDS ORDERED: Calcium Gluconate 1 GM in Sodium Chloride 0.9% 100 ML IV ONE (11:09)
[2017-05-13] MEDS ORDERED: Potassium Chloride 40 MEQ, Lidocaine 1% 20mL Vial 25 MG in Sodium Chloride 0.9% 250 ML IV ONE (11:09)
--- NOTE | 2017-05-13 13:55 | Internal Medicine Prog Note ---
Internal Medicine Subjective - Subjective Patient seen and examined:: with staff, chart reviewed Patient is:: asleep, non-interactive Per staff patient has:: no adverse event, poor oral intake, confused, tolerating meds Internal Medicine Objective - Results Result Diagrams: 05/13/17 05:25 05/13/17 05:25 Recent Labs: Laboratory Last Values WBC 15.5 Th/cmm (4.8-10.8) H D 05/13/17 05:25 RBC 3.48 Mil/cmm (3.80-5.10) L 05/13/17 05:25 Hgb 11.0 gm/dL (12-16) L 05/13/17 05:25 Hct 31.7 % (41.0-60) L D 05/13/17 05:25 MCV 91.2 fl (81-100) 05/13/17 05:25 MCH 31.6 pg (27.0-31.0) H 05/13/17 05:25 MCHC Differential 34.7 pg (28.0-36.0) 05/13/17 05:25 RDW 13.7 % (11.5-20.0) 05/13/17 05:25 Plt Count 249 Th/cmm (150-400) 05/13/17 05:25 MPV 9.9 fl 05/13/17 05:25 Neutrophils % 54.4 % (40.0-80.0) 05/12/17 04:09 Band Neutrophils % 5 % (0-10) 05/13/17 05:25 Lymphocytes % 32.0 % (20.0-50.0) 05/12/17 04:09 Monocytes % 10.1 % (2.0-10.0) H 05/12/17 04:09 Eosinophils % 3.1 % (0.0-5.0) 05/12/17 04:09 Basophils % 0.4 % (0.0-2.0) 05/12/17 04:09 Neutrophils (Manual) 67 % (40-80) 05/13/17 05:25 Lymphocytes 24 % (20-50) 05/13/17 05:25 Monocytes 4 % (2-10) 05/13/17 05:25 Eosinophils 2 % (0-5) 05/08/17 04:35 Basophils 1 % (0-3) 05/08/17 04:35 Platelet Estimate ADEQUATE (NORMAL) 05/07/17 12:58 Platelet Morphology NORMAL (NORMAL) 05/07/17 12:58 RBC Morph Micro Appear NORMAL (NORMAL) 05/07/17 12:58 PT 12.0 SECONDS (9.5-11.5) H 05/07/17 12:58 INR 1.14 (0.5-1.4) 05/07/17 12:58 PTT (Actin FS) 24.5 SECONDS (26.0-38.0) L 05/07/17 12:58 Sodium 139 mEq/L (136-145) 05/13/17 05:25 Potassium 3.1 mEq/L (3.5-5.1) L 05/13/17 05:25 Chloride 107 mEq/L (98-107) 05/13/17 05:25 Carbon Dioxide 28.1 mEq/L (21.0-31.0) 05/13/17 05:25 Anion Gap 7.0 (7.0-16.0) 05/13/17 05:25 BUN 7 mg/dL (7-25) 05/13/17 05:25 Creatinine 0.4 mg/dL (0.6-1.2) L 05/13/17 05:25 Est GFR ( Amer) > 60.0 ml/min (>90) 05/13/17 05:25 Est GFR (Non-Af Amer) > 60.0 ml/min 05/13/17 05:25 BUN/Creatinine Ratio 17.5 05/13/17 05:25 Glucose 111 mg/dL (70-105) H 05/13/17 05:25 POC Glucose 140 MG/DL (70 - 105) H 05/13/17 08:54 Hemoglobin A1c % 5.3 % (4.0-6.0) 05/07/17 13:59 Whole Bld Lactic Acid 2.01 mmol/L (0.60-1.99) H* 05/07/17 15:03 Calcium 6.9 mg/dL (8.6-10.3) L 05/13/17 05:25 Phosphorus 3.6 mg/dL (2.5-5.0) 05/10/17 04:06 Magnesium 2.3 mg/dL (1.9-2.7) 05/11/17 04:11 Total Bilirubin 0.5 mg/dL (0.3-1.0) 05/13/17 05:25 Direct Bilirubin 0.20 mg/dL (0.0-0.2) 05/13/17 05:25 AST 92 U/L (13-39) H 05/13/17 05:25 ALT 53 U/L (7-52) H 05/13/17 05:25 Alkaline Phosphatase 68 U/L (34-104) 05/13/17 05:25 Ammonia 54 umol/L (16-53) H 05/08/17 04:35 Creatine Kinase 41 U/L (30-223) 05/07/17 12:58 Troponin I 0.06 ng/mL (0.01-0.05) H D 05/07/17 21:01 Total Protein 5.4 gm/dL (6.0-8.3) L 05/13/17 05:25 Albumin 2.8 gm/dL (3.7-5.3) L 05/13/17 05:25 Globulin 2.6 gm/dL 05/13/17 05:25 Albumin/Globulin Ratio 1.1 (1.0-1.8) 05/13/17 05:25 Lipase 176 U/L (11-82) H 05/08/17 04:35 Vitamin B12 882 pg/mL (211-946) 05/08/17 04:35 Folic Acid 6.0 ng/mL (>3.0) 05/08/17 04:35 TSH 0.55 uIU/ml (0.34-5.60) 05/08/17 04:35 Urine Source [place] 05/07/17 13:45 Urine Color ORANGE 05/07/17 13:45 Urine Clarity CLOUDY (CLEAR) H 05/07/17 13:45 Urine pH 5.5 (4.6 - 8.0) 05/07/17 13:45 Ur Specific [place] 1.025 (1.005-1.030) 05/07/17 13:45 Urine Protein 100 mg/dL (NEGATIVE) H 05/07/17 13:45 Urine Glucose (UA) NEGATIVE mg/dL (NEGATIVE) 05/07/17 13:45 Urine Ketones TRACE mg/dL (NEGATIVE) 05/07/17 13:45 Urine Blood SMALL (NEGATIVE) H 05/07/17 13:45 Urine Nitrate NEGATIVE (NEGATIVE) 05/07/17 13:45 Urine Bilirubin MODERATE (NEGATIVE) H 05/07/17 13:45 Urine Urobilinogen 1.0 E.U./dL (0.2 - 1.0) 05/07/17 13:45 Ur Leukocyte Esterase NEGATIVE (NEGATIVE) 05/07/17 13:45 Urine RBC 5-10 /hpf (0-5) H 05/07/17 13:45 Urine WBC 0-2 /hpf (0-5) 05/07/17 13:45 Ur Epithelial Cells FEW /lpf (FEW) 05/07/17 13:45 Amorphous Sediment MODERATE URATES (NONE SEEN) 05/07/17 13:45 Urine Bacteria 1+ /hpf (NONE SEEN) H 05/07/17 13:45 Urine Mucus MODERATE /lpf (FEW) 05/07/17 13:45 Urine Test NEGATIVE 05/07/17 13:45 Vancomycin Trough 11.1 ug/mL (10-20) 05/13/17 05:25 Random Vancomycin 15.5 ug/mL (5.0-40.0) 05/12/17 13:00 Valproic Acid 25.4 ug/mL (50.0-100.0) L 05/07/17 13:06 - Physical Exam Vitals and I&O: Vital Signs Temp 98.2 F 05/13/17 13:00 Pulse 98 05/13/17 13:00 Resp 16 05/13/17 13:00 BP 92/57 05/13/17 13:00 Pulse Ox 98 05/13/17 13:00 Intake & Output 05/12/17 05/13/17 05/13/17 18:59 06:59 18:59 Intake Total 484 50 50 Output Total 830 470 Balance -346 50 -420 Weight (lbs) 59.903 kg 59.058 kg Intake: Intake, IV Amount 484 50 50 Cefepime 1 gm In Dextrose 50 50 50 5% 50 ml @ 100 mls/hr IV Q12H [facility] Rx#:[id number] Dextrose 5% 1,000 ml @ 80 184 mls/hr IV .[id number] [facility] Rx#:[id number] Vancomycin HCl 1 gm In 250 Sodium Chloride 0.9% 250 ml @ 165 mls/hr IV Q18H [facility] Rx#:[id number] Output: Drainage 80 70 Right Abdomen 80 70 Urine 750 400 Other: # Bowel Movements 0 Active Medications: Current Medications Acetaminophen (Tylenol) 650 mg PO Q4H PRN PRN Reason: Mild Pain Or Fever above 101 Stop: 07/06/17 20:03 Acetaminophen (Tylenol 650mg Supp) 650 mg RC Q4H PRN PRN Reason: Fever > 101 Stop: 07/12/17 11:47 Last Admin: 05/13/17 12:04 Dose: 650 mg Acetaminophen/Hydrocodone Bitart ([place] 5mg/325mg) 1 tab PO Q6H PRN PRN Reason: Pain (Severe) Stop: 07/06/17 20:00 Al Hydrox/Mg Hydrox/Simethicone (Maalox) 30 ml PO Q6H PRN PRN Reason: Dyspepsia Stop: 07/06/17 20:03 Albuterol Sulfate (Albuterol 2.5mg/3ml Neb Ud) 2.5 mg HHN Q2HRT PRN PRN Reason: Shortness of Breath or Wheeze Stop: 07/06/17 20:03 Artificial Tears (Artificial Tears Ophth Soln) 1 drop EACH EYE BID [facility] Stop: 07/07/17 08:59 Last Admin: 05/13/17 08:15 Dose: 1 drop Divalproex Sodium (Depakote Sprinkle) 125 mg GT Q12HR [facility] PRN Reason: Protocol Stop: 07/07/17 11:59 Last Admin: 05/13/17 08:15 Dose: Not Given Docusate Sodium (Colace) 100 mg GT DAILY [facility] Stop: 07/07/17 12:59 Last Admin: 05/13/17 08:14 Dose: Not Given Ferrous Sulfate (Iron) 300 mg GT TID [facility] Stop: 07/07/17 13:59 Last Admin: 05/13/17 08:14 Dose: Not Given Heparin Sodium (Porcine) (Heparin) 5,000 units SUBQ Q12HR [facility] Stop: 07/07/17 20:59 Last Admin: 05/13/17 08:50 Dose: 5,000 units Cefepime HCl 1 gm/ Dextrose 50 mls @ 100 mls/hr IV Q12H [facility] Stop: 07/06/17 20:59 Last Infusion: 05/13/17 08:45 Dose: Infused Vancomycin HCl 1 gm/ Sodium (Chloride) 250 mls @ 165 mls/hr IV Q18H [facility] Stop: 07/11/17 15:59 Last Admin: 05/13/17 10:00 Dose: 165 mls/hr Potassium Chloride 40 meq/Lidocaine HCl 25 mg/ Sodium Chloride 272.5 mls @ 68 mls/hr IV X1 ONE Stop: 05/13/17 15:09 Last Admin: 05/13/17 11:30 Dose: 68 mls/hr Potassium Chloride/Dextrose/Sod Cl (D5-0.45ns W/40 Meq Kcl) 1,000 mls @ 75 mls/ hr IV .[id number] [facility] Stop: 07/12/17 13:59 Ipratropium [place] (Atrovent Neb 0.5mg/2.5ml) 0.5 mg IH Q2HRT PRN PRN Reason: Shortness of Breath or Wheeze Stop: 07/06/17 20:03 Lactobacillus Rhamnosus (Culturelle) 1 each PO DAILY [facility] Stop: 07/08/17 08:59 Last Admin: 05/13/17 08:14 Dose: Not Given Latanoprost (Xalatan 0.005% Ophth Soln) 1 drop RIGHT EYE HS [facility] Stop: 07/06/17 20:59 Last Admin: 05/12/17 20:59 Dose: 1 drop Lorazepam (Ativan) 1 mg GT Q6H PRN; Protocol PRN Reason: Anxiety Stop: 07/06/17 20:00 Lorazepam (Ativan) 1 mg IV Q4H PRN; Protocol PRN Reason: Seizure Stop: 07/06/17 20:03 Last Admin: 05/13/17 12:07 Dose: 1 mg Midodrine (Proamatine) 10 mg PO TID [facility] Stop: 07/08/17 13:59 Last Admin: 05/13/17 08:15 Dose: Not Given Miscellaneous (Vancomycin Iv Per Pharmacy) 1 ea MC PRN [facility] Stop: 07/06/17 20:14 Miscellaneous (Vte Chemical Prophylaxis Screen/ Admission) 1 ea MC PRN PRN PRN Reason: PROTOCOL Stop: 07/07/17 12:25 Miscellaneous (Probiotic Screen) 1 ea PRN PRN PRN Reason: PROTOCOL Stop: 07/07/17 14:41 Morphine Sulfate (Morphine) 2 mg IVP Q2HR PRN PRN Reason: Pain (Severe) Stop: 07/11/17 12:55 Last Admin: 05/13/17 10:47 Dose: 2 mg Ondansetron HCl (Zofran) 4 mg IV Q8H PRN PRN Reason: Nausea / Vomiting Stop: 07/06/17 20:03 Pantoprazole Sodium (Protonix) 40 mg GT QDAC [facility] Stop: 07/07/17 08:59 Last Admin: 05/13/17 06:59 Dose: Not Given General: weak, alert HEENT: NC/AT, PERRLA Neck: Supple Lungs: CTAB Cardiovascular: RRR, Normal S1, Normal S2 Abdomen: soft, non-tender, non-distended Extremities: excoriation - Procedures Procedures: Procedures Procedure Code Date CHANGE FEEDING DEVICE IN UP INTEST TRACT, [employer]GE[employer] APPROACH [id number] 05/07/17 CHANGE GASTROSTOMY TUBE 65876 05/07/17 Internal Medicine Assmt/Plan - Assessment Assessment: fever SEPSIS ALOC HYPERNATREMIA HYPOKALEMIA GT MALFUNCTION ACUTE UTI S/P LAP MARS - Plan Plan: - Plan Plan: will sent ua and cxr will correct lytes PAIN MGMT IVF FOR HYDRATION cont on IV ANTIBIOTICS MONITOR ELECTROLYTES CONTINUE CURRENT PLAN OF CARE Nutritional Asmnt/Malnutr-PDOC - Dietary Evaluation Malnutrition Findings (Please click <Entered> for more info): Nutritional Asmnt/Malnutrition Start: 05/08/17 11: 46 Text: Status: Complete Freq: Document 05/08/17 11:46 GSUN (Rec: 05/08/17 12:08 [email or web address]) Nutritional Asmnt/Malnutrition Patient General Information Nutritional Screening High Risk Screening Diagnosis ER: dehydration, possible sepsis with leukocytosis, DM Pertinent Medical Hx/Surgical Hx ER report: PUD/GERD, trauma brain injury, chronic anemia Subjective Information 37 year old female from SNF. Pt was awake, non-verbal, family at bedside. GI Dr. Ch arrived during visit to replace g-tube. Confirmed with RN and pt's chart, pt is tube feeding dependent with pureed [place] for oral gratification. No muscle fat wasting noted. Current Diet Order/ Nutrition Support Currently no diet order. Pertinent Medications D5w, Iron, Novolog, Vancomycin , Zofran, Protonix Pertinent Labs 05/07: A1c 5.3 05/08: sodium 163H, potassium 3 .4L, glucose 143H, total bilirubin 1.3H Nutritional Hx/Data Height 1.7 m Height (Calculated Centimeters) 170.2 Current Weight (lbs) 63.049 kg Weight (Calculated Kilograms) 63.0 Weight (Calculated Grams) 88382.3 [place] Body Weight 135 Weight Status Approriate GI Symptoms Difficult in: Chewing Swallowing Food Allergies No Cultural/Ethnic/Denominational Belief [facility]: pureed with [place] for oral gratification. EN two trista bolus 5 cans per day, providing 1185ml and 2375kcal. Usual diet at home Refer to above. Skin Integrity/Comment: Robin 13. LEft arm non- pitting 3+. Estimated Nutritional Goals BEE in Kcals: Using Current wt Calories/Kcals/Kg CBW 139lb/63.2kg Kcals Calculated 1580-2212kcal (25-35kcal/kg, possible sepsis and 2375kcal at SNF) Protein: Using Current wt Protein Calculated 63-82g (1-1.3g/kg) Fluid: ml 1580-2212ml (1ml/kcal) Nutritional Problem 1. Problem Problem Increased kcal and prot needs related to Etiology possible hypermetabolic state, unknown aeb Signs/Symptoms: possible sepsis, pt receieves 2375kcal at SNF Intervention/Recommendation Comments 1. Recommend Nutren 2.0 as pt toelrates this formula at [facility] at 40ml/hr x 24hrs, providing 960ml total volume, 1920kcal, and 81g protein. 2. Monitor glucose levels, if remains consistantly high, recommend Diabetisource at 70ml/hr x 24hrs, providing 1680ml total volume, 2016kcal, and 101g protein. 3. Recommend pureed [place] thick food items for oral gratification if needed as pt tolerates at SNF. Expected Outcomes/Goals Expected Outcomes/Goals 1. Pt to meet 100% of estimated nutritional needs on tube feeding with tolerance.
[2017-05-13 14:14] LABS: HEP B CORE IGM Negative (Negative); HEP C ANTIBODY <0.1 s/co ratio (0.0-0.9)
[2017-05-13] MEDS: D5-0.45NS w/40 mEq KCL 1,000 ML IV SCH (14:55)
[2017-05-13 17:14] LABS: URINE BILIRUBIN NEGATIVE (NEGATIVE); URINE BLOOD MODERATE (NEGATIVE); URINE GLUCOSE (UA) NEGATIVE (NEGATIVE); URINE KETONE NEGATIVE (NEGATIVE); URINE PH 6.5 (4.6 - 8.0); URINE PROTEIN NEGATIVE (NEGATIVE); URINE UROBILINOGEN 0.2 E.U./dL (0.2 - 1.0)
[2017-05-13 17:18] LABS: URINE COLOR YELLOW
[2017-05-13 17:19] LABS: URINE BACTERIA NONE SEEN /hpf (NONE SEEN); URINE EPITHELIAL CELLS OCCASIONAL /lpf (FEW); URINE WBC 0-2 /hpf (0-5)
[2017-05-14] MEDS: Morphine Sulfate 2 mg/mL 1mL Syr IVP PRN ×4 (04:34→16:53)
[2017-05-14 05:44] LABS: % BASOPHILS 0.2 % (0.0-2.0); % EOSINOPHILS 0.8 % (0.0-5.0); % LYMPHOCYTES 22.1 % (20.0-50.0); % MONOCYTES 8.4 % (2.0-10.0); % NEUTROPHILS 68.5 % (40.0-80.0); HEMOGLOBIN 12.1 gm/dL (12-16); MEAN CELL VOLUME 91.3 fl (81-100); MEAN CORPUSCULAR HEMOGLOBIN 30.2 pg (27.0-31.0); MEAN CORPUSCULAR HGB CONC 33.1 pg (28.0-36.0); MEAN PLATELET VOLUME 8.8 fl; NEUTROPHILE ABSOLUTE 7.8 Th/cmm (1.8-8.0); RED BLOOD COUNT 4.01 Mil/cmm (3.80-5.10); RED CELL DISTRIBUTION WIDTH 13.9 % (11.5-20.0)
[2017-05-14 05:45] LABS: HEMATOCRIT 36.6 % (41.0-60); PLATELET COUNT 328 Th/cmm (150-400); WHITE BLOOD COUNT 11.4 Th/cmm (4.8-10.8)
[2017-05-14 05:59] LABS: ALKALINE PHOSPHATASE 74 U/L (34-104); ANION GAP 6.8 (7.0-16.0); BILIRUBIN,TOTAL 0.7 mg/dL (0.3-1.0); BUN - UREA NITROGEN 7 mg/dL (7-25); CARBON DIOXIDE 28.8 mEq/L (21.0-31.0); CHLORIDE 115 mEq/L (98-107); CREATININE - SERUM 0.5 mg/dL (0.6-1.2); GLUCOSE 113 mg/dL (70-105); MAGNESIUM 2.3 mg/dL (1.9-2.7); POTASSIUM SERUM 3.6 mEq/L (3.5-5.1); SGOT 53 U/L (13-39); SGPT/ALT 45 U/L (7-52); SODIUM SERUM 147 mEq/L (136-145)
[2017-05-14] MEDS: D5-0.45NS w/40 mEq KCL 1,000 ML IV SCH ×2 (06:28→13:04)
[2017-05-14] MEDS: Lactobacillus Rhamnosus 10 Billion CFU Capsule PO SCH (09:00)
[2017-05-14] MEDS: Ferrous Sulfate 300 MG/5 ML UDC GT SCH ×3 (09:01→20:44)
[2017-05-14] MEDS: Pantoprazole 40 mg/Packet GT SCH (09:01)
[2017-05-14] MEDS: Docusate Sodium 100 mg/10 mL UD GT SCH (09:01)
[2017-05-14] MEDS: Polyvinyl Alcohol Ophth Soln 15 mL Bottle EACH EYE SCH ×2 (09:10→17:10)
--- NOTE | 2017-05-14 09:24 | Diagnostic Imaging Report ---
CHEST X-RAY: AP view INDICATION: Fever COMPARISON: 05/10/2017 FINDINGS: Low lung volumes are noted with linear lung markings of the left lower lung zone. Support devices are stable. Heart size is normal. No pleural effusions. IMPRESSION: Low lung volumes with linear markings involving the left lower lung zone which may be due to atelectasis, however, developing infiltrate at left lung base cannot be excluded.
--- NOTE | 2017-05-14 10:41 | General Progress Note ---
Subjective - Review of Systems Service Date: 05/14/17 Events since last encounter: Gram stain - no organism labs ok start oral intake Objective - Results Result Diagrams: 05/14/17 05:29 05/14/17 05:29 Recent Labs: Laboratory Last Values WBC 11.4 Th/cmm (4.8-10.8) H D 05/14/17 05:29 RBC 4.01 Mil/cmm (3.80-5.10) 05/14/17 05:29 Hgb 12.1 gm/dL (12-16) 05/14/17 05:29 Hct 36.6 % (41.0-60) L D 05/14/17 05:29 MCV 91.3 fl (81-100) 05/14/17 05:29 MCH 30.2 pg (27.0-31.0) 05/14/17 05:29 MCHC Differential 33.1 pg (28.0-36.0) 05/14/17 05:29 RDW 13.9 % (11.5-20.0) 05/14/17 05:29 Plt Count 328 Th/cmm (150-400) D 05/14/17 05:29 MPV 8.8 fl 05/14/17 05:29 Neutrophils % 68.5 % (40.0-80.0) 05/14/17 05:29 Band Neutrophils % 5 % (0-10) 05/13/17 05:25 Lymphocytes % 22.1 % (20.0-50.0) 05/14/17 05:29 Monocytes % 8.4 % (2.0-10.0) 05/14/17 05:29 Eosinophils % 0.8 % (0.0-5.0) 05/14/17 05:29 Basophils % 0.2 % (0.0-2.0) 05/14/17 05:29 Neutrophils (Manual) 67 % (40-80) 05/13/17 05:25 Lymphocytes 24 % (20-50) 05/13/17 05:25 Monocytes 4 % (2-10) 05/13/17 05:25 Eosinophils 2 % (0-5) 05/08/17 04:35 Basophils 1 % (0-3) 05/08/17 04:35 Platelet Estimate ADEQUATE (NORMAL) 05/07/17 12:58 Platelet Morphology NORMAL (NORMAL) 05/07/17 12:58 RBC Morph Micro Appear NORMAL (NORMAL) 05/07/17 12:58 PT 12.0 SECONDS (9.5-11.5) H 05/07/17 12:58 INR 1.14 (0.5-1.4) 05/07/17 12:58 PTT (Actin FS) 24.5 SECONDS (26.0-38.0) L 05/07/17 12:58 Sodium 147 mEq/L (136-145) H 05/14/17 05:29 Potassium 3.6 mEq/L (3.5-5.1) 05/14/17 05:29 Chloride 115 mEq/L (98-107) H 05/14/17 05:29 Carbon Dioxide 28.8 mEq/L (21.0-31.0) 05/14/17 05:29 Anion Gap 6.8 (7.0-16.0) L 05/14/17 05:29 BUN 7 mg/dL (7-25) 05/14/17 05:29 Creatinine 0.5 mg/dL (0.6-1.2) L 05/14/17 05:29 Est GFR ( Amer) > 60.0 ml/min (>90) 05/14/17 05:29 Est GFR (Non-Af Amer) > 60.0 ml/min 05/14/17 05:29 BUN/Creatinine Ratio 14.0 05/14/17 05:29 Glucose 113 mg/dL (70-105) H 05/14/17 05:29 POC Glucose 140 MG/DL (70 - 105) H 05/13/17 08:54 Hemoglobin A1c % 5.3 % (4.0-6.0) 05/07/17 13:59 Whole Bld Lactic Acid 2.01 mmol/L (0.60-1.99) H* 05/07/17 15:03 Calcium 8.0 mg/dL (8.6-10.3) L 05/14/17 05:29 Phosphorus 3.6 mg/dL (2.5-5.0) 05/10/17 04:06 Magnesium 2.3 mg/dL (1.9-2.7) 05/14/17 05:29 Total Bilirubin 0.7 mg/dL (0.3-1.0) 05/14/17 05:29 Direct Bilirubin 0.20 mg/dL (0.0-0.2) 05/13/17 05:25 AST 53 U/L (13-39) H 05/14/17 05:29 ALT 45 U/L (7-52) 05/14/17 05:29 Alkaline Phosphatase 74 U/L (34-104) 05/14/17 05:29 Ammonia 54 umol/L (16-53) H 05/08/17 04:35 Creatine Kinase 41 U/L (30-223) 05/07/17 12:58 Troponin I 0.06 ng/mL (0.01-0.05) H D 05/07/17 21:01 Total Protein 6.3 gm/dL (6.0-8.3) 05/14/17 05:29 Albumin 3.1 gm/dL (3.7-5.3) L 05/14/17 05:29 Globulin 3.2 gm/dL 05/14/17 05:29 Albumin/Globulin Ratio 1.0 (1.0-1.8) 05/14/17 05:29 Lipase 176 U/L (11-82) H 05/08/17 04:35 Vitamin B12 882 pg/mL (211-946) 05/08/17 04:35 Folic Acid 6.0 ng/mL (>3.0) 05/08/17 04:35 TSH 0.55 uIU/ml (0.34-5.60) 05/08/17 04:35 Urine Source CATH 05/13/17 16:00 Urine Color YELLOW 05/13/17 16:00 Urine Clarity CLEAR (CLEAR) 05/13/17 16:00 Urine pH 6.5 (4.6 - 8.0) 05/13/17 16:00 Ur Specific [place] <= 1.005 (1.005-1.030) 05/13/17 16:00 Urine Protein NEGATIVE mg/dL (NEGATIVE) 05/13/17 16:00 Urine Glucose (UA) NEGATIVE mg/dL (NEGATIVE) 05/13/17 16:00 Urine Ketones NEGATIVE mg/dL (NEGATIVE) 05/13/17 16:00 Urine Blood MODERATE (NEGATIVE) H 05/13/17 16:00 Urine Nitrate NEGATIVE (NEGATIVE) 05/13/17 16:00 Urine Bilirubin NEGATIVE (NEGATIVE) 05/13/17 16:00 Urine Urobilinogen 0.2 E.U./dL (0.2 - 1.0) 05/13/17 16:00 Ur Leukocyte Esterase NEGATIVE (NEGATIVE) 05/13/17 16:00 Urine RBC 2-5 /hpf (0-5) 05/13/17 16:00 Urine WBC 0-2 /hpf (0-5) 05/13/17 16:00 Ur Epithelial Cells OCCASIONAL /lpf (FEW) 05/13/17 16:00 Amorphous Sediment MODERATE URATES (NONE SEEN) 05/07/17 13:45 Urine Bacteria NONE SEEN /hpf (NONE SEEN) 05/13/17 16:00 Urine Mucus MODERATE /lpf (FEW) 05/07/17 13:45 Urine Test NEGATIVE 05/07/17 13:45 Vancomycin Trough 11.1 ug/mL (10-20) 05/13/17 05:25 Random Vancomycin 15.5 ug/mL (5.0-40.0) 05/12/17 13:00 Valproic Acid 25.4 ug/mL (50.0-100.0) L 05/07/17 13:06 Hepatitis A IgM Ab Negative (Negative) 05/12/17 13:00 Hep Bs Antigen Negative (Negative) 05/12/17 13:00 Hep B Core IgM Ab Negative (Negative) 05/12/17 13:00 Hepatitis C Antibody <0.1 s/co ratio (0.0-0.9) 05/12/17 13:00 - Physical Exam Vitals and I&O: Vital Signs Temp 99.6 F 05/14/17 04:00 Pulse 101 05/14/17 09:20 Resp 15 05/14/17 09:20 BP 116/68 05/14/17 06:00 Pulse Ox 97 05/14/17 09:20 Intake & Output 05/13/17 05/14/17 05/14/17 18:59 06:59 18:59 Intake Total 300 1300 Output Total 0590 925 Balance -1890 375 Weight (lbs) 58.995 kg 57.833 kg Intake: Intake, IV Amount 300 1300 Cefepime 1 gm In Dextrose 50 50 5% 50 ml @ 100 mls/hr IV Q12H [facility] Rx#:[id number] D5-0.45NS w/40 mEq KCL 1, 1000 000 ml @ 75 mls/hr IV . [id number] [facility] Rx#:[id number] Vancomycin HCl 1 gm In 250 250 Sodium Chloride 0.9% 250 ml @ 165 mls/hr IV Q18H [facility] Rx#:[id number] Oral 0 Output: Drainage 90 25 Right Abdomen 90 25 Urine 2100 900 Other: # Bowel Movements 0 0 Active Medications: Current Medications Acetaminophen (Tylenol) 650 mg PO Q4H PRN PRN Reason: Mild Pain Or Fever above 101 Stop: 07/06/17 20:03 Acetaminophen (Tylenol 650mg Supp) 650 mg RC Q4H PRN PRN Reason: Fever > 101 Stop: 07/12/17 11:47 Last Admin: 05/13/17 12:04 Dose: 650 mg Acetaminophen/Hydrocodone Bitart ([place] 5mg/325mg) 1 tab PO Q6H PRN PRN Reason: Pain (Severe) Stop: 07/06/17 20:00 Al Hydrox/Mg Hydrox/Simethicone (Maalox) 30 ml PO Q6H PRN PRN Reason: Dyspepsia Stop: 07/06/17 20:03 Albuterol Sulfate (Albuterol 2.5mg/3ml Neb Ud) 2.5 mg HHN Q2HRT PRN PRN Reason: Shortness of Breath or Wheeze Stop: 07/06/17 20:03 Artificial Tears (Artificial Tears Ophth Soln) 1 drop EACH EYE BID [facility] Stop: 07/07/17 08:59 Last Admin: 05/13/17 17:52 Dose: 1 drop Divalproex Sodium (Depakote Sprinkle) 125 mg GT Q12HR [facility] PRN Reason: Protocol Stop: 07/07/17 11:59 Last Admin: 05/14/17 09:01 Dose: Not Given Docusate Sodium (Colace) 100 mg GT DAILY [facility] Stop: 07/07/17 12:59 Last Admin: 05/14/17 09:01 Dose: Not Given Ferrous Sulfate (Iron) 300 mg GT TID [facility] Stop: 07/07/17 13:59 Last Admin: 05/14/17 09:01 Dose: Not Given Heparin Sodium (Porcine) (Heparin) 5,000 units SUBQ Q12HR [facility] Stop: 07/07/17 20:59 Last Admin: 05/14/17 09:01 Dose: 5,000 units Cefepime HCl 1 gm/ Dextrose 50 mls @ 100 mls/hr IV Q12H [facility] Stop: 07/06/17 20:59 Last Admin: 05/14/17 08:59 Dose: 100 mls/hr Vancomycin HCl 1 gm/ Sodium (Chloride) 250 mls @ 165 mls/hr IV Q18H [facility] Stop: 07/11/17 15:59 Last Infusion: 05/14/17 05:37 Dose: Infused Potassium Chloride/Dextrose/Sod Cl (D5-0.45ns W/40 Meq Kcl) 1,000 mls @ 75 mls/ hr IV .[id number] [facility] Stop: 07/12/17 13:59 Last Admin: 05/14/17 06:28 Dose: 75 mls/hr Ipratropium [place] (Atrovent Neb 0.5mg/2.5ml) 0.5 mg IH Q2HRT PRN PRN Reason: Shortness of Breath or Wheeze Stop: 07/06/17 20:03 Lactobacillus Rhamnosus (Culturelle) 1 each PO DAILY [facility] Stop: 07/08/17 08:59 Last Admin: 05/13/17 08:14 Dose: Not Given Latanoprost (Xalatan 0.005% [facility] Sol) 1 drop RIGHT EYE HS [facility] Stop: 07/06/17 20:59 Last Admin: 05/13/17 20:26 Dose: 1 drop Lorazepam (Ativan) 1 mg GT Q6H PRN; Protocol PRN Reason: Anxiety Stop: 07/06/17 20:00 Lorazepam (Ativan) 1 mg IV Q4H PRN; Protocol PRN Reason: Seizure Stop: 07/06/17 20:03 Last Admin: 05/13/17 12:07 Dose: 1 mg Midodrine (Proamatine) 10 mg PO TID [facility] Stop: 07/08/17 13:59 Last Admin: 05/13/17 20:08 Dose: Not Given Miscellaneous (Vancomycin Iv Per Pharmacy) 1 ea MC PRN [facility] Stop: 07/06/17 20:14 Miscellaneous (Vte Chemical Prophylaxis Screen/ Admission) 1 ea PRN PRN PRN Reason: PROTOCOL Stop: 07/07/17 12:25 Miscellaneous (Probiotic Screen) 1 ea PRN PRN PRN Reason: PROTOCOL Stop: 07/07/17 14:41 Morphine Sulfate (Morphine) 2 mg IVP Q2HR PRN PRN Reason: Pain (Severe) Stop: 07/11/17 12:55 Last Admin: 05/14/17 08:50 Dose: 2 mg Ondansetron HCl (Zofran) 4 mg IV Q8H PRN PRN Reason: Nausea / Vomiting Stop: 07/06/17 20:03 Pantoprazole Sodium (Protonix) 40 mg GT QDAC KELSEY Stop: 07/07/17 08:59 Last Admin: 05/14/17 09:01 Dose: Not Given - Procedures Procedures: Procedures Procedure Code Date CHANGE FEEDING DEVICE IN UP INTEST TRACT, LOAN SUPERVISOR APPROACH [id number] 05/07/17 CHANGE GASTROSTOMY TUBE 70683 05/07/17 Assessment/Plan - Problem List Patient Problems: All Active Problems Atypical chest pain (Active) R07.89 Nutritional Asmnt/Malnutr-PDOC - Dietary Evaluation Malnutrition Findings (Please click <Entered> for more info): Nutritional Asmnt/Malnutrition Start: 05/08/17 11: 46 Text: Status: Complete Freq: Document 05/08/17 11:46 GSUN (Rec: 05/08/17 12:08 GSUN [email or web address]) Nutritional Asmnt/Malnutrition Patient General Information Nutritional Screening High Risk Screening Diagnosis ER: dehydration, possible sepsis with leukocytosis, DM Pertinent Medical Hx/Surgical Hx ER report: PUD/GERD, trauma brain injury, chronic anemia Subjective Information 37 year old female from SNF. Pt was awake, non-verbal, family at bedside. GI Dr. Ch arrived during visit to replace g-tube. Confirmed with RN and pt's chart, pt is tube feeding dependent with pureed [place] for oral gratification. No muscle fat wasting noted. Current Diet Order/ Nutrition Support Currently no diet order. Pertinent Medications D5w, Iron, Novolog, Vancomycin , Zofran, Protonix Pertinent Labs 05/07: A1c 5.3 05/08: sodium 163H, potassium 3 .4L, glucose 143H, total bilirubin 1.3H Nutritional Hx/Data Height 1.7 m Height (Calculated Centimeters) 170.2 Current Weight (lbs) 63.049 kg Weight (Calculated Kilograms) 63.0 Weight (Calculated Grams) 46299.3 [place] Body Weight 135 Weight Status Approriate GI Symptoms Difficult in: Chewing Swallowing Food Allergies No Cultural/Ethnic/Confucianist Belief [facility]: pureed with [place] for oral gratification. EN two trista bolus 5 cans per day, providing 1185ml and 2375kcal. Usual diet at home Refer to above. Skin Integrity/Comment: Robin 13. LEft arm non- pitting 3+. Estimated Nutritional Goals BEE in Kcals: Using Current wt Calories/Kcals/Kg CBW 139lb/63.2kg Kcals Calculated 1580-2212kcal (25-35kcal/kg, possible sepsis and 2375kcal at SNF) Protein: Using Current wt Protein Calculated 63-82g (1-1.3g/kg) Fluid: ml 1580-2212ml (1ml/kcal) Nutritional Problem 1. Problem Problem Increased kcal and prot needs related to Etiology possible hypermetabolic state, unknown aeb Signs/Symptoms: possible sepsis, pt receieves 2375kcal at [facility] Intervention/Recommendation Comments 1. Recommend Nutren 2.0 as pt toelrates this formula at [facility] at 40ml/hr x 24hrs, providing 960ml total volume, 1920kcal, and 81g protein. 2. Monitor glucose levels, if remains consistantly high, recommend Diabetisource at 70ml/hr x 24hrs, providing 1680ml total volume, 2016kcal, and 101g protein. 3. Recommend pureed [place] thick food items for oral gratification if needed as pt tolerates at [facility]. Expected Outcomes/Goals Expected Outcomes/Goals 1. Pt to meet 100% of estimated nutritional needs on tube feeding with tolerance.
--- NOTE | 2017-05-14 11:44 | Infectious Disease Prog Note ---
Infectious Disease Subjective - Review of Systems Service Date: 05/14/17 Subjective: No new change. low grade fever in early am. Infectious Disease Objective - Results Result Diagrams: 05/14/17 05:29 05/14/17 05:29 Recent Labs: Laboratory Last Values WBC 11.4 Th/cmm (4.8-10.8) H D 05/14/17 05:29 RBC 4.01 Mil/cmm (3.80-5.10) 05/14/17 05:29 Hgb 12.1 gm/dL (12-16) 05/14/17 05:29 Hct 36.6 % (41.0-60) L D 05/14/17 05:29 MCV 91.3 fl (81-100) 05/14/17 05:29 MCH 30.2 pg (27.0-31.0) 05/14/17 05:29 MCHC Differential 33.1 pg (28.0-36.0) 05/14/17 05:29 RDW 13.9 % (11.5-20.0) 05/14/17 05:29 Plt Count 328 Th/cmm (150-400) D 05/14/17 05:29 MPV 8.8 fl 05/14/17 05:29 Neutrophils % 68.5 % (40.0-80.0) 05/14/17 05:29 Band Neutrophils % 5 % (0-10) 05/13/17 05:25 Lymphocytes % 22.1 % (20.0-50.0) 05/14/17 05:29 Monocytes % 8.4 % (2.0-10.0) 05/14/17 05:29 Eosinophils % 0.8 % (0.0-5.0) 05/14/17 05:29 Basophils % 0.2 % (0.0-2.0) 05/14/17 05:29 Neutrophils (Manual) 67 % (40-80) 05/13/17 05:25 Lymphocytes 24 % (20-50) 05/13/17 05:25 Monocytes 4 % (2-10) 05/13/17 05:25 Eosinophils 2 % (0-5) 05/08/17 04:35 Basophils 1 % (0-3) 05/08/17 04:35 Platelet Estimate ADEQUATE (NORMAL) 05/07/17 12:58 Platelet Morphology NORMAL (NORMAL) 05/07/17 12:58 RBC Morph Micro Appear NORMAL (NORMAL) 05/07/17 12:58 PT 12.0 SECONDS (9.5-11.5) H 05/07/17 12:58 INR 1.14 (0.5-1.4) 05/07/17 12:58 PTT (Actin FS) 24.5 SECONDS (26.0-38.0) L 05/07/17 12:58 Sodium 147 mEq/L (136-145) H 05/14/17 05:29 Potassium 3.6 mEq/L (3.5-5.1) 05/14/17 05:29 Chloride 115 mEq/L (98-107) H 05/14/17 05:29 Carbon Dioxide 28.8 mEq/L (21.0-31.0) 05/14/17 05:29 Anion Gap 6.8 (7.0-16.0) L 05/14/17 05:29 BUN 7 mg/dL (7-25) 05/14/17 05:29 Creatinine 0.5 mg/dL (0.6-1.2) L 05/14/17 05:29 Est GFR ( Amer) > 60.0 ml/min (>90) 05/14/17 05:29 Est GFR (Non-Af Amer) > 60.0 ml/min 05/14/17 05:29 BUN/Creatinine Ratio 14.0 05/14/17 05:29 Glucose 113 mg/dL (70-105) H 05/14/17 05:29 POC Glucose 140 MG/DL (70 - 105) H 05/13/17 08:54 Hemoglobin A1c % 5.3 % (4.0-6.0) 05/07/17 13:59 Whole Bld Lactic Acid 2.01 mmol/L (0.60-1.99) H* 05/07/17 15:03 Calcium 8.0 mg/dL (8.6-10.3) L 05/14/17 05:29 Phosphorus 3.6 mg/dL (2.5-5.0) 05/10/17 04:06 Magnesium 2.3 mg/dL (1.9-2.7) 05/14/17 05:29 Total Bilirubin 0.7 mg/dL (0.3-1.0) 05/14/17 05:29 Direct Bilirubin 0.20 mg/dL (0.0-0.2) 05/13/17 05:25 AST 53 U/L (13-39) H 05/14/17 05:29 ALT 45 U/L (7-52) 05/14/17 05:29 Alkaline Phosphatase 74 U/L (34-104) 05/14/17 05:29 Ammonia 54 umol/L (16-53) H 05/08/17 04:35 Creatine Kinase 41 U/L (30-223) 05/07/17 12:58 Troponin I 0.06 ng/mL (0.01-0.05) H D 05/07/17 21:01 Total Protein 6.3 gm/dL (6.0-8.3) 05/14/17 05:29 Albumin 3.1 gm/dL (3.7-5.3) L 05/14/17 05:29 Globulin 3.2 gm/dL 05/14/17 05:29 Albumin/Globulin Ratio 1.0 (1.0-1.8) 05/14/17 05:29 Lipase 176 U/L (11-82) H 05/08/17 04:35 Vitamin B12 882 pg/mL (211-946) 05/08/17 04:35 Folic Acid 6.0 ng/mL (>3.0) 05/08/17 04:35 TSH 0.55 uIU/ml (0.34-5.60) 05/08/17 04:35 Urine Source CATH 05/13/17 16:00 Urine Color YELLOW 05/13/17 16:00 Urine Clarity CLEAR (CLEAR) 05/13/17 16:00 Urine pH 6.5 (4.6 - 8.0) 05/13/17 16:00 Ur Specific [place] <= 1.005 (1.005-1.030) 05/13/17 16:00 Urine Protein NEGATIVE mg/dL (NEGATIVE) 05/13/17 16:00 Urine Glucose (UA) NEGATIVE mg/dL (NEGATIVE) 05/13/17 16:00 Urine Ketones NEGATIVE mg/dL (NEGATIVE) 05/13/17 16:00 Urine Blood MODERATE (NEGATIVE) H 05/13/17 16:00 Urine Nitrate NEGATIVE (NEGATIVE) 05/13/17 16:00 Urine Bilirubin NEGATIVE (NEGATIVE) 05/13/17 16:00 Urine Urobilinogen 0.2 E.U./dL (0.2 - 1.0) 05/13/17 16:00 Ur Leukocyte Esterase NEGATIVE (NEGATIVE) 05/13/17 16:00 Urine RBC 2-5 /hpf (0-5) 05/13/17 16:00 Urine WBC 0-2 /hpf (0-5) 05/13/17 16:00 Ur Epithelial Cells OCCASIONAL /lpf (FEW) 05/13/17 16:00 Amorphous Sediment MODERATE URATES (NONE SEEN) 05/07/17 13:45 Urine Bacteria NONE SEEN /hpf (NONE SEEN) 05/13/17 16:00 Urine Mucus MODERATE /lpf (FEW) 05/07/17 13:45 Urine Test NEGATIVE 05/07/17 13:45 Vancomycin Trough 11.1 ug/mL (10-20) 05/13/17 05:25 Random Vancomycin 15.5 ug/mL (5.0-40.0) 05/12/17 13:00 Valproic Acid 25.4 ug/mL (50.0-100.0) L 05/07/17 13:06 Hepatitis A IgM Ab Negative (Negative) 05/12/17 13:00 Hep Bs Antigen Negative (Negative) 05/12/17 13:00 Hep B Core IgM Ab Negative (Negative) 05/12/17 13:00 Hepatitis C Antibody <0.1 s/co ratio (0.0-0.9) 05/12/17 13:00 - Physical Exam Vitals and I&O: Vital Signs Temp 97 F 05/14/17 11:00 Pulse 96 05/14/17 11:00 Resp 15 05/14/17 11:00 BP 108/60 05/14/17 11:00 Pulse Ox 97 05/14/17 11:00 Intake & Output 05/13/17 05/14/17 05/14/17 18:59 06:59 18:59 Intake Total 300 1300 Output Total 4474 925 Balance -1890 375 Weight (lbs) 58.995 kg 57.833 kg Intake: Intake, IV Amount 300 1300 Cefepime 1 gm In Dextrose 50 50 5% 50 ml @ 100 mls/hr IV Q12H [facility] Rx#:[id number] D5-0.45NS w/40 mEq KCL 1, 1000 000 ml @ 75 mls/hr IV . [id number] [facility] Rx#:[id number] Vancomycin HCl 1 gm In 250 250 Sodium Chloride 0.9% 250 ml @ 165 mls/hr IV Q18H [facility] Rx#:[id number] Oral 0 Output: Drainage 90 25 Right Abdomen 90 25 Urine 2100 900 Other: # Bowel Movements 0 0 Active Medications: Current Medications Acetaminophen (Tylenol) 650 mg PO Q4H PRN PRN Reason: Mild Pain Or Fever above 101 Stop: 07/06/17 20:03 Acetaminophen (Tylenol 650mg Supp) 650 mg RC Q4H PRN PRN Reason: Fever > 101 Stop: 07/12/17 11:47 Last Admin: 05/13/17 12:04 Dose: 650 mg Acetaminophen/Hydrocodone Bitart ([place] 5mg/325mg) 1 tab PO Q6H PRN PRN Reason: Pain (Severe) Stop: 07/06/17 20:00 Al Hydrox/Mg Hydrox/Simethicone (Maalox) 30 ml PO Q6H PRN PRN Reason: Dyspepsia Stop: 07/06/17 20:03 Albuterol Sulfate (Albuterol 2.5mg/3ml Neb Ud) 2.5 mg HHN Q2HRT PRN PRN Reason: Shortness of Breath or Wheeze Stop: 07/06/17 20:03 Artificial Tears (Artificial Tears Ophth Soln) 1 drop EACH EYE BID [facility] Stop: 07/07/17 08:59 Last Admin: 05/13/17 17:52 Dose: 1 drop Divalproex Sodium (Depakote Sprinkle) 125 mg GT Q12HR [facility] PRN Reason: Protocol Stop: 07/07/17 11:59 Last Admin: 05/14/17 09:01 Dose: Not Given Docusate Sodium (Colace) 100 mg GT DAILY [facility] Stop: 07/07/17 12:59 Last Admin: 05/14/17 09:01 Dose: Not Given Ferrous Sulfate (Iron) 300 mg GT TID [facility] Stop: 07/07/17 13:59 Last Admin: 05/14/17 09:01 Dose: Not Given Heparin Sodium (Porcine) (Heparin) 5,000 units SUBQ Q12HR [facility] Stop: 07/07/17 20:59 Last Admin: 05/14/17 09:01 Dose: 5,000 units Cefepime HCl 1 gm/ Dextrose 50 mls @ 100 mls/hr IV Q12H [facility] Stop: 07/06/17 20:59 Last Admin: 05/14/17 08:59 Dose: 100 mls/hr Vancomycin HCl 1 gm/ Sodium (Chloride) 250 mls @ 165 mls/hr IV Q18H [facility] Stop: 07/11/17 15:59 Last Infusion: 05/14/17 05:37 Dose: Infused Potassium Chloride/Dextrose/Sod Cl (D5-0.45ns W/40 Meq Kcl) 1,000 mls @ 75 mls/ hr IV .[id number] [facility] Stop: 07/12/17 13:59 Last Admin: 05/14/17 06:28 Dose: 75 mls/hr Ipratropium [place] (Atrovent Neb 0.5mg/2.5ml) 0.5 mg IH Q2HRT PRN PRN Reason: Shortness of Breath or Wheeze Stop: 07/06/17 20:03 Lactobacillus Rhamnosus (Culturelle) 1 each PO DAILY [facility] Stop: 07/08/17 08:59 Last Admin: 05/13/17 08:14 Dose: Not Given Latanoprost (Xalatan 0.005% [facility] Sol) 1 drop RIGHT EYE HS [facility] Stop: 07/06/17 20:59 Last Admin: 05/13/17 20:26 Dose: 1 drop Lorazepam (Ativan) 1 mg GT Q6H PRN; Protocol PRN Reason: Anxiety Stop: 07/06/17 20:00 Lorazepam (Ativan) 1 mg IV Q4H PRN; Protocol PRN Reason: Seizure Stop: 07/06/17 20:03 Last Admin: 05/13/17 12:07 Dose: 1 mg Midodrine (Proamatine) 10 mg PO TID [facility] Stop: 07/08/17 13:59 Last Admin: 05/13/17 20:08 Dose: Not Given Miscellaneous (Vancomycin Iv Per Pharmacy) 1 ea MC PRN [facility] Stop: 07/06/17 20:14 Miscellaneous (Vte Chemical Prophylaxis Screen/ Admission) 1 ea PRN PRN PRN Reason: PROTOCOL Stop: 07/07/17 12:25 Miscellaneous (Probiotic Screen) 1 ea PRN PRN PRN Reason: PROTOCOL Stop: 07/07/17 14:41 Morphine Sulfate (Morphine) 2 mg IVP Q2HR PRN PRN Reason: Pain (Severe) Stop: 07/11/17 12:55 Last Admin: 05/14/17 08:50 Dose: 2 mg Ondansetron HCl (Zofran) 4 mg IV Q8H PRN PRN Reason: Nausea / Vomiting Stop: 07/06/17 20:03 Pantoprazole Sodium (Protonix) 40 mg GT QDAC [facility] Stop: 07/07/17 08:59 Last Admin: 05/14/17 09:01 Dose: Not Given General: no acute distress, cachectic HEENT: atraumatic, normocephalic, PERRLA, EOMI Neck: supple, no thyromegaly Cardiovascular: S1S2, regular Lungs: clear to auscultation bilaterally, clear to percussion Abdomen: soft, drain (RUQ.), other (surgical incision.) Extremities: no cyanosis, no clubbing, no edema Neurological: awake, alert Skin: intact - Procedures Procedures: Procedures Procedure Code Date CHANGE FEEDING DEVICE IN UP INTEST TRACT, PSS DELIVERY PROFESSIONAL APPROACH [id number] 05/07/17 CHANGE GASTROSTOMY TUBE 88097 05/07/17 Infectious Disease Assmt/Plan - Problem List Patient Problems: All Active Problems Atypical chest pain (Active) R07.89 - Assessment Assessment: 1. Acute cholecytitis. 2. OSTEOLOGIST shunt 3. Traumatic brain injury. 4. Dehydration. 5. Altered mental status, due to metabolic encephalopathy 6. Hypernatremia. 7. S/p open maribel. 8. fever post op. Plan: Conitnue the same antibiotics, cefepime and vanco IV. - Plan Plan: Continue the same antibiotics, cefepime and vanco IV. Nutritional Asmnt/Malnutr-PDOC - Dietary Evaluation Malnutrition Findings (Please click <Entered> for more info): Nutritional Asmnt/Malnutrition Start: 05/08/17 11: 46 Text: Status: Complete Freq: Document 05/08/17 11:46 GSUN (Rec: 05/08/17 12:08 [id number]) Nutritional Asmnt/Malnutrition Patient General Information Nutritional Screening High Risk Screening Diagnosis ER: dehydration, possible sepsis with leukocytosis, DM Pertinent Medical Hx/Surgical Hx ER report: PUD/GERD, trauma brain injury, chronic anemia Subjective Information 37 year old female from [facility]. Pt was awake, non-verbal, family at bedside. GI Dr. Ch arrived during visit to replace g-tube. Confirmed with RN and pt's chart, pt is tube feeding dependent with pureed [place] for oral gratification. No muscle fat wasting noted. Current Diet Order/ Nutrition Support Currently no diet order. Pertinent Medications D5w, Iron, Novolog, Vancomycin , Zofran, Protonix Pertinent Labs 05/07: A1c 5.3 05/08: sodium 163H, potassium 3 .4L, glucose 143H, total bilirubin 1.3H Nutritional Hx/Data Height 1.7 m Height (Calculated Centimeters) 170.2 Current Weight (lbs) 63.049 kg Weight (Calculated Kilograms) 63.0 Weight (Calculated Grams) 19537.3 [place] Body Weight 135 Weight Status Approriate GI Symptoms Difficult in: Chewing Swallowing Food Allergies No Cultural/Ethnic/[facility]: pureed with [place] for oral gratification. EN two trista bolus 5 cans per day, providing 1185ml and 2375kcal. Usual diet at home Refer to above. Skin Integrity/Comment: Robin 13. LEft arm non- pitting 3+. Estimated Nutritional Goals BEE in Kcals: Using Current wt Calories/Kcals/Kg CBW 139lb/63.2kg Kcals Calculated 1580-2212kcal (25-35kcal/kg, possible sepsis and 2375kcal at SNF) Protein: Using Current wt Protein Calculated 63-82g (1-1.3g/kg) Fluid: ml 1580-2212ml (1ml/kcal) Nutritional Problem 1. Problem Problem Increased kcal and prot needs related to Etiology possible hypermetabolic state, unknown aeb Signs/Symptoms: possible sepsis, pt receieves 2375kcal at [facility] Intervention/Recommendation Comments 1. Recommend Nutren 2.0 as pt toelrates this formula at [facility] at 40ml/hr x 24hrs, providing 960ml total volume, 1920kcal, and 81g protein. 2. Monitor glucose levels, if remains consistantly high, recommend Diabetisource at 70ml/hr x 24hrs, providing 1680ml total volume, 2016kcal, and 101g protein. 3. Recommend pureed [place] thick food items for oral gratification if needed as pt tolerates at SNF. Expected Outcomes/Goals Expected Outcomes/Goals 1. Pt to meet 100% of estimated nutritional needs on tube feeding with tolerance.
[2017-05-14 11:50] LABS: BILIRUBIN,DIRECT 0.23 mg/dL (0.0-0.2); BILIRUBIN,TOTAL 0.7 mg/dL (0.3-1.0)
--- NOTE | 2017-05-14 12:59 | Internal Medicine Prog Note ---
Internal Medicine Subjective - Subjective Patient seen and examined:: with staff, chart reviewed Patient is:: asleep, non-interactive Per staff patient has:: no adverse event, poor oral intake, confused, tolerating meds Internal Medicine Objective - Results Result Diagrams: 05/14/17 05:29 05/14/17 05:29 Recent Labs: Laboratory Last Values WBC 11.4 Th/cmm (4.8-10.8) H D 05/14/17 05:29 RBC 4.01 Mil/cmm (3.80-5.10) 05/14/17 05:29 Hgb 12.1 gm/dL (12-16) 05/14/17 05:29 Hct 36.6 % (41.0-60) L D 05/14/17 05:29 MCV 91.3 fl (81-100) 05/14/17 05:29 MCH 30.2 pg (27.0-31.0) 05/14/17 05:29 MCHC Differential 33.1 pg (28.0-36.0) 05/14/17 05:29 RDW 13.9 % (11.5-20.0) 05/14/17 05:29 Plt Count 328 Th/cmm (150-400) D 05/14/17 05:29 MPV 8.8 fl 05/14/17 05:29 Neutrophils % 68.5 % (40.0-80.0) 05/14/17 05:29 Band Neutrophils % 5 % (0-10) 05/13/17 05:25 Lymphocytes % 22.1 % (20.0-50.0) 05/14/17 05:29 Monocytes % 8.4 % (2.0-10.0) 05/14/17 05:29 Eosinophils % 0.8 % (0.0-5.0) 05/14/17 05:29 Basophils % 0.2 % (0.0-2.0) 05/14/17 05:29 Neutrophils (Manual) 67 % (40-80) 05/13/17 05:25 Lymphocytes 24 % (20-50) 05/13/17 05:25 Monocytes 4 % (2-10) 05/13/17 05:25 Eosinophils 2 % (0-5) 05/08/17 04:35 Basophils 1 % (0-3) 05/08/17 04:35 Platelet Estimate ADEQUATE (NORMAL) 05/07/17 12:58 Platelet Morphology NORMAL (NORMAL) 05/07/17 12:58 RBC Morph Micro Appear NORMAL (NORMAL) 05/07/17 12:58 PT 12.0 SECONDS (9.5-11.5) H 05/07/17 12:58 INR 1.14 (0.5-1.4) 05/07/17 12:58 PTT (Actin FS) 24.5 SECONDS (26.0-38.0) L 05/07/17 12:58 Sodium 147 mEq/L (136-145) H 05/14/17 05:29 Potassium 3.6 mEq/L (3.5-5.1) 05/14/17 05:29 Chloride 115 mEq/L (98-107) H 05/14/17 05:29 Carbon Dioxide 28.8 mEq/L (21.0-31.0) 05/14/17 05:29 Anion Gap 6.8 (7.0-16.0) L 05/14/17 05:29 BUN 7 mg/dL (7-25) 05/14/17 05:29 Creatinine 0.5 mg/dL (0.6-1.2) L 05/14/17 05:29 Est GFR ( Amer) > 60.0 ml/min (>90) 05/14/17 05:29 Est GFR (Non-Af Amer) > 60.0 ml/min 05/14/17 05:29 BUN/Creatinine Ratio 14.0 05/14/17 05:29 Glucose 113 mg/dL (70-105) H 05/14/17 05:29 POC Glucose 140 MG/DL (70 - 105) H 05/13/17 08:54 Hemoglobin A1c % 5.3 % (4.0-6.0) 05/07/17 13:59 Whole Bld Lactic Acid 2.01 mmol/L (0.60-1.99) H* 05/07/17 15:03 Calcium 8.0 mg/dL (8.6-10.3) L 05/14/17 05:29 Phosphorus 3.6 mg/dL (2.5-5.0) 05/10/17 04:06 Magnesium 2.3 mg/dL (1.9-2.7) 05/14/17 05:29 Total Bilirubin 0.7 mg/dL (0.3-1.0) 05/14/17 11:26 Direct Bilirubin 0.23 mg/dL (0.0-0.2) H 05/14/17 11:26 AST 42 U/L (13-39) H 05/14/17 11:26 ALT 36 U/L (7-52) 05/14/17 11:26 Alkaline Phosphatase 68 U/L (34-104) 05/14/17 11:26 Ammonia 54 umol/L (16-53) H 05/08/17 04:35 Creatine Kinase 41 U/L (30-223) 05/07/17 12:58 Troponin I 0.06 ng/mL (0.01-0.05) H D 05/07/17 21:01 Total Protein 5.3 gm/dL (6.0-8.3) L 05/14/17 11:26 Albumin 2.7 gm/dL (3.7-5.3) L 05/14/17 11:26 Globulin 2.6 gm/dL 05/14/17 11:26 Albumin/Globulin Ratio 1.0 (1.0-1.8) 05/14/17 11:26 Lipase 176 U/L (11-82) H 05/08/17 04:35 Vitamin B12 882 pg/mL (211-946) 05/08/17 04:35 Folic Acid 6.0 ng/mL (>3.0) 05/08/17 04:35 TSH 0.55 uIU/ml (0.34-5.60) 05/08/17 04:35 Urine Source CATH 05/13/17 16:00 Urine Color YELLOW 05/13/17 16:00 Urine Clarity CLEAR (CLEAR) 05/13/17 16:00 Urine pH 6.5 (4.6 - 8.0) 05/13/17 16:00 Ur Specific [place] <= 1.005 (1.005-1.030) 05/13/17 16:00 Urine Protein NEGATIVE mg/dL (NEGATIVE) 05/13/17 16:00 Urine Glucose (UA) NEGATIVE mg/dL (NEGATIVE) 05/13/17 16:00 Urine Ketones NEGATIVE mg/dL (NEGATIVE) 05/13/17 16:00 Urine Blood MODERATE (NEGATIVE) H 05/13/17 16:00 Urine Nitrate NEGATIVE (NEGATIVE) 05/13/17 16:00 Urine Bilirubin NEGATIVE (NEGATIVE) 05/13/17 16:00 Urine Urobilinogen 0.2 E.U./dL (0.2 - 1.0) 05/13/17 16:00 Ur Leukocyte Esterase NEGATIVE (NEGATIVE) 05/13/17 16:00 Urine RBC 2-5 /hpf (0-5) 05/13/17 16:00 Urine WBC 0-2 /hpf (0-5) 05/13/17 16:00 Ur Epithelial Cells OCCASIONAL /lpf (FEW) 05/13/17 16:00 Amorphous Sediment MODERATE URATES (NONE SEEN) 05/07/17 13:45 Urine Bacteria NONE SEEN /hpf (NONE SEEN) 05/13/17 16:00 Urine Mucus MODERATE /lpf (FEW) 05/07/17 13:45 Urine Test NEGATIVE 05/07/17 13:45 Vancomycin Trough 11.1 ug/mL (10-20) 05/13/17 05:25 Random Vancomycin 15.5 ug/mL (5.0-40.0) 05/12/17 13:00 Valproic Acid 25.4 ug/mL (50.0-100.0) L 05/07/17 13:06 Hepatitis A IgM Ab Negative (Negative) 05/12/17 13:00 Hep Bs Antigen Negative (Negative) 05/12/17 13:00 Hep B Core IgM Ab Negative (Negative) 05/12/17 13:00 Hepatitis C Antibody <0.1 s/co ratio (0.0-0.9) 05/12/17 13:00 - Physical Exam Vitals and I&O: Vital Signs Temp 97 F 05/14/17 12:00 Pulse 97 05/14/17 12:00 Resp 15 05/14/17 12:00 BP 111/63 05/14/17 12:00 Pulse Ox 97 05/14/17 12:00 Intake & Output 05/13/17 05/14/17 05/14/17 18:59 06:59 18:59 Intake Total 300 1300 Output Total 8216 925 Balance -1890 375 Weight (lbs) 58.995 kg 57.833 kg Intake: Intake, IV Amount 300 1300 Cefepime 1 gm In Dextrose 50 50 5% 50 ml @ 100 mls/hr IV Q12H [facility] Rx#:[id number] D5-0.45NS w/40 mEq KCL 1, 1000 000 ml @ 75 mls/hr IV . [id number] [facility] Rx#:[id number] Vancomycin HCl 1 gm In 250 250 Sodium Chloride 0.9% 250 ml @ 165 mls/hr IV Q18H [facility] Rx#:[id number] Oral 0 Output: Drainage 90 25 Right Abdomen 90 25 Urine 2100 900 Other: # Bowel Movements 0 0 Active Medications: Current Medications Acetaminophen (Tylenol) 650 mg PO Q4H PRN PRN Reason: Mild Pain Or Fever above 101 Stop: 07/06/17 20:03 Acetaminophen (Tylenol 650mg Supp) 650 mg RC Q4H PRN PRN Reason: Fever > 101 Stop: 07/12/17 11:47 Last Admin: 05/13/17 12:04 Dose: 650 mg Acetaminophen/Hydrocodone Bitart ([place] 5mg/325mg) 1 tab PO Q6H PRN PRN Reason: Pain (Severe) Stop: 07/06/17 20:00 Al Hydrox/Mg Hydrox/Simethicone (Maalox) 30 ml PO Q6H PRN PRN Reason: Dyspepsia Stop: 07/06/17 20:03 Albuterol Sulfate (Albuterol 2.5mg/3ml Neb Ud) 2.5 mg HHN Q2HRT PRN PRN Reason: Shortness of Breath or Wheeze Stop: 07/06/17 20:03 Artificial Tears (Artificial Tears Ophth Soln) 1 drop EACH EYE BID [facility] Stop: 07/07/17 08:59 Last Admin: 05/14/17 09:10 Dose: 1 drop Divalproex Sodium (Depakote Sprinkle) 125 mg GT Q12HR [facility] PRN Reason: Protocol Stop: 07/07/17 11:59 Last Admin: 05/14/17 09:01 Dose: Not Given Docusate Sodium (Colace) 100 mg GT DAILY [facility] Stop: 07/07/17 12:59 Last Admin: 05/14/17 09:01 Dose: Not Given Ferrous Sulfate (Iron) 300 mg GT TID [facility] Stop: 07/07/17 13:59 Last Admin: 05/14/17 09:01 Dose: Not Given Heparin Sodium (Porcine) (Heparin) 5,000 units SUBQ Q12HR [facility] Stop: 07/07/17 20:59 Last Admin: 05/14/17 09:01 Dose: 5,000 units Cefepime HCl 1 gm/ Dextrose 50 mls @ 100 mls/hr IV Q12H [facility] Stop: 07/06/17 20:59 Last Admin: 05/14/17 08:59 Dose: 100 mls/hr Vancomycin HCl 1 gm/ Sodium (Chloride) 250 mls @ 165 mls/hr IV Q18H [facility] Stop: 07/11/17 15:59 Last Infusion: 05/14/17 05:37 Dose: Infused Potassium Chloride/Dextrose/Sod Cl (D5-0.45ns W/40 Meq Kcl) 1,000 mls @ 75 mls/ hr IV .[id number] [facility] Stop: 07/12/17 13:59 Last Admin: 05/14/17 06:28 Dose: 75 mls/hr Ipratropium [place] (Atrovent Neb 0.5mg/2.5ml) 0.5 mg IH Q2HRT PRN PRN Reason: Shortness of Breath or Wheeze Stop: 07/06/17 20:03 Lactobacillus Rhamnosus (Culturelle) 1 each PO DAILY [facility] Stop: 07/08/17 08:59 Last Admin: 05/14/17 09:00 Dose: Not Given Latanoprost (Xalatan 0.005% [facility] Sol) 1 drop RIGHT EYE HS [facility] Stop: 07/06/17 20:59 Last Admin: 05/13/17 20:26 Dose: 1 drop Lorazepam (Ativan) 1 mg GT Q6H PRN; Protocol PRN Reason: Anxiety Stop: 07/06/17 20:00 Lorazepam (Ativan) 1 mg IV Q4H PRN; Protocol PRN Reason: Seizure Stop: 07/06/17 20:03 Last Admin: 05/13/17 12:07 Dose: 1 mg Midodrine (Proamatine) 10 mg PO TID KELSEY Stop: 07/08/17 13:59 Last Admin: 05/14/17 09:00 Dose: Not Given Miscellaneous (Vancomycin Iv Per Pharmacy) 1 ea PRN KELSEY Stop: 07/06/17 20:14 Miscellaneous (Vte Chemical Prophylaxis Screen/ Admission) 1 ea PRN PRN PRN Reason: PROTOCOL Stop: 07/07/17 12:25 Miscellaneous (Probiotic Screen) 1 ea MC PRN PRN PRN Reason: PROTOCOL Stop: 07/07/17 14:41 Morphine Sulfate (Morphine) 2 mg IVP Q2HR PRN PRN Reason: Pain (Severe) Stop: 07/11/17 12:55 Last Admin: 05/14/17 11:42 Dose: 2 mg Ondansetron HCl (Zofran) 4 mg IV Q8H PRN PRN Reason: Nausea / Vomiting Stop: 07/06/17 20:03 Pantoprazole Sodium (Protonix) 40 mg GT QDAC KELSEY Stop: 07/07/17 08:59 Last Admin: 05/14/17 09:01 Dose: Not Given General: weak, alert HEENT: NC/AT, PERRLA Neck: Supple Lungs: CTAB Cardiovascular: RRR, Normal S1, Normal S2 Abdomen: soft, non-tender, non-distended Extremities: excoriation - Procedures Procedures: Procedures Procedure Code Date CHANGE FEEDING DEVICE IN UP INTEST TRACT, CAREER TECHNICAL COUNSELOR APPROACH [id number] 05/07/17 CHANGE GASTROSTOMY TUBE 06117 05/07/17 Internal Medicine Assmt/Plan - Assessment Assessment: fever SEPSIS ALOC HYPERNATREMIA HYPOKALEMIA GT MALFUNCTION ACUTE UTI S/P LAP MARS tachycardia - Plan Plan: - Plan Plan: will sent ua and cxr will correct lytes PAIN MGMT IVF FOR HYDRATION cont on IV ANTIBIOTICS MONITOR ELECTROLYTES CONTINUE CURRENT PLAN OF CARE monitor hr Nutritional Asmnt/Malnutr-PDOC - Dietary Evaluation Malnutrition Findings (Please click <Entered> for more info): Nutritional Asmnt/Malnutrition Start: 05/08/17 11: 46 Text: Status: Complete Freq: Document 05/08/17 11:46 GSUN (Rec: 05/08/17 12:08 GSUN [email or web address]) Nutritional Asmnt/Malnutrition Patient General Information Nutritional Screening High Risk Screening Diagnosis ER: dehydration, possible sepsis with leukocytosis, DM Pertinent Medical Hx/Surgical Hx ER report: PUD/GERD, trauma brain injury, chronic anemia Subjective Information 37 year old female from SNF. Pt was awake, non-verbal, family at bedside. GI Dr. Ch arrived during visit to replace g-tube. Confirmed with RN and pt's chart, pt is tube feeding dependent with pureed [place] for oral gratification. No muscle fat wasting noted. Current Diet Order/ Nutrition Support Currently no diet order. Pertinent Medications D5w, Iron, Novolog, Vancomycin , Zofran, Protonix Pertinent Labs 05/07: A1c 5.3 05/08: sodium 163H, potassium 3 .4L, glucose 143H, total bilirubin 1.3H Nutritional Hx/Data Height 1.7 m Height (Calculated Centimeters) 170.2 Current Weight (lbs) 63.049 kg Weight (Calculated Kilograms) 63.0 Weight (Calculated Grams) 37911.3 [place] Body Weight 135 Weight Status Approriate GI Symptoms Difficult in: Chewing Swallowing Food Allergies No Cultural/Ethnic/[employer]az[employer] Belief [facility]: pureed with [place] for oral gratification. EN two trista bolus 5 cans per day, providing 1185ml and 2375kcal. Usual diet at home Refer to above. Skin Integrity/Comment: Robin 13. LEft arm non- pitting 3+. Estimated Nutritional Goals BEE in Kcals: Using Current wt Calories/Kcals/Kg CBW 139lb/63.2kg Kcals Calculated 1580-2212kcal (25-35kcal/kg, possible sepsis and 2375kcal at SNF) Protein: Using Current wt Protein Calculated 63-82g (1-1.3g/kg) Fluid: ml 1580-2212ml (1ml/kcal) Nutritional Problem 1. Problem Problem Increased kcal and prot needs related to Etiology possible hypermetabolic state, unknown aeb Signs/Symptoms: possible sepsis, pt receieves 2375kcal at [facility] Intervention/Recommendation Comments 1. Recommend Nutren 2.0 as pt toelrates this formula at [facility] at 40ml/hr x 24hrs, providing 960ml total volume, 1920kcal, and 81g protein. 2. Monitor glucose levels, if remains consistantly high, recommend Diabetisource at 70ml/hr x 24hrs, providing 1680ml total volume, 2016kcal, and 101g protein. 3. Recommend pureed [place] thick food items for oral gratification if needed as pt tolerates at SNF. Expected Outcomes/Goals Expected Outcomes/Goals 1. Pt to meet 100% of estimated nutritional needs on tube feeding with tolerance.
[2017-05-15] MEDS: Morphine Sulfate 2 mg/mL 1mL Syr IVP PRN ×5 (03:26→20:40)
[2017-05-15 04:59] LABS: HEMOGLOBIN 11.7 gm/dL (12-16)
[2017-05-15 05:04] LABS: % BASOPHILS 0.2 % (0.0-2.0); % EOSINOPHILS 2.8 % (0.0-5.0); HEMATOCRIT 35.4 % (41.0-60); MEAN CELL VOLUME 93.4 fl (81-100); MEAN CORPUSCULAR HEMOGLOBIN 30.9 pg (27.0-31.0); MEAN CORPUSCULAR HGB CONC 33.1 pg (28.0-36.0); MEAN PLATELET VOLUME 8.8 fl; NEUTROPHILE ABSOLUTE 4.8 Th/cmm (1.8-8.0); PLATELET COUNT 391 Th/cmm (150-400); RED BLOOD COUNT 3.79 Mil/cmm (3.80-5.10); RED CELL DISTRIBUTION WIDTH 15.6 % (11.5-20.0); WHITE BLOOD COUNT 9.8 Th/cmm (4.8-10.8)
[2017-05-15] MEDS: D5-0.45NS w/40 mEq KCL 1,000 ML IV SCH ×2 (05:52→23:37)
[2017-05-15] MEDS: Pantoprazole 40 mg/Packet GT SCH (06:36)
[2017-05-15] MEDS: Ferrous Sulfate 300 MG/5 ML UDC GT SCH ×3 (08:22→20:38)
[2017-05-15] MEDS: Docusate Sodium 100 mg/10 mL UD GT SCH (08:22)
[2017-05-15] MEDS: Lactobacillus Rhamnosus 10 Billion CFU Capsule PO SCH (08:22)
[2017-05-15] MEDS: Polyvinyl Alcohol Ophth Soln 15 mL Bottle EACH EYE SCH ×2 (08:25→16:39)
[2017-05-15 12:01] LABS: ALKALINE PHOSPHATASE 70 U/L (34-104); ANION GAP 7.6 (7.0-16.0); BILIRUBIN,TOTAL 0.5 mg/dL (0.3-1.0); BUN - UREA NITROGEN 5 mg/dL (7-25); CALCIUM SERUM 8.3 mg/dL (8.6-10.3); CARBON DIOXIDE 29.2 mEq/L (21.0-31.0); CHLORIDE 118 mEq/L (98-107); CREATININE - SERUM 0.5 mg/dL (0.6-1.2); GLUCOSE 100 mg/dL (70-105); POTASSIUM SERUM 3.8 mEq/L (3.5-5.1); SGOT 37 U/L (13-39); SGPT/ALT 32 U/L (7-52); SODIUM SERUM 151 mEq/L (136-145)
--- NOTE | 2017-05-15 13:03 | Internal Medicine Prog Note ---
Internal Medicine Subjective - Subjective Patient seen and examined:: with staff, chart reviewed, other (ate some jello) Patient is:: asleep, non-interactive Per staff patient has:: no adverse event, poor oral intake, confused, tolerating meds Internal Medicine Objective - Results Result Diagrams: 05/15/17 04:05 05/15/17 04:05 Recent Labs: Laboratory Last Values WBC 9.8 Th/cmm (4.8-10.8) 05/15/17 04:05 RBC 3.79 Mil/cmm (3.80-5.10) L 05/15/17 04:05 Hgb 11.7 gm/dL (12-16) L 05/15/17 04:05 Hct 35.4 % (41.0-60) L 05/15/17 04:05 MCV 93.4 fl (81-100) 05/15/17 04:05 MCH 30.9 pg (27.0-31.0) 05/15/17 04:05 MCHC Differential 33.1 pg (28.0-36.0) 05/15/17 04:05 RDW 15.6 % (11.5-20.0) 05/15/17 04:05 Plt Count 391 Th/cmm (150-400) 05/15/17 04:05 MPV 8.8 fl 05/15/17 04:05 Neutrophils % 49.0 % (40.0-80.0) 05/15/17 04:05 Band Neutrophils % 5 % (0-10) 05/13/17 05:25 Lymphocytes % 38.0 % (20.0-50.0) 05/15/17 04:05 Monocytes % 10.0 % (2.0-10.0) 05/15/17 04:05 Eosinophils % 2.8 % (0.0-5.0) 05/15/17 04:05 Basophils % 0.2 % (0.0-2.0) 05/15/17 04:05 Neutrophils (Manual) 67 % (40-80) 05/13/17 05:25 Lymphocytes 24 % (20-50) 05/13/17 05:25 Monocytes 4 % (2-10) 05/13/17 05:25 Eosinophils 2 % (0-5) 05/08/17 04:35 Basophils 1 % (0-3) 05/08/17 04:35 Platelet Estimate ADEQUATE (NORMAL) 05/07/17 12:58 Platelet Morphology NORMAL (NORMAL) 05/07/17 12:58 RBC Morph Micro Appear NORMAL (NORMAL) 05/07/17 12:58 PT 12.0 SECONDS (9.5-11.5) H 05/07/17 12:58 INR 1.14 (0.5-1.4) 05/07/17 12:58 PTT (Actin FS) 24.5 SECONDS (26.0-38.0) L 05/07/17 12:58 Sodium 151 mEq/L (136-145) H 05/15/17 04:05 Potassium 3.8 mEq/L (3.5-5.1) 05/15/17 04:05 Chloride 118 mEq/L (98-107) H 05/15/17 04:05 Carbon Dioxide 29.2 mEq/L (21.0-31.0) 05/15/17 04:05 Anion Gap 7.6 (7.0-16.0) 05/15/17 04:05 BUN 5 mg/dL (7-25) L 05/15/17 04:05 Creatinine 0.5 mg/dL (0.6-1.2) L 05/15/17 04:05 Est GFR ( Amer) > 60.0 ml/min (>90) 05/15/17 04:05 Est GFR (Non-Af Amer) > 60.0 ml/min 05/15/17 04:05 BUN/Creatinine Ratio 10.0 05/15/17 04:05 Glucose 100 mg/dL (70-105) 05/15/17 04:05 POC Glucose 140 MG/DL (70 - 105) H 05/13/17 08:54 Hemoglobin A1c % 5.3 % (4.0-6.0) 05/07/17 13:59 Whole Bld Lactic Acid 2.01 mmol/L (0.60-1.99) H* 05/07/17 15:03 Calcium 8.3 mg/dL (8.6-10.3) L 05/15/17 04:05 Phosphorus 3.6 mg/dL (2.5-5.0) 05/10/17 04:06 Magnesium 2.3 mg/dL (1.9-2.7) 05/14/17 05:29 Total Bilirubin 0.5 mg/dL (0.3-1.0) 05/15/17 04:05 Direct Bilirubin 0.23 mg/dL (0.0-0.2) H 05/14/17 11:26 AST 37 U/L (13-39) 05/15/17 04:05 ALT 32 U/L (7-52) 05/15/17 04:05 Alkaline Phosphatase 70 U/L (34-104) 05/15/17 04:05 Ammonia 54 umol/L (16-53) H 05/08/17 04:35 Creatine Kinase 41 U/L (30-223) 05/07/17 12:58 Troponin I 0.06 ng/mL (0.01-0.05) H D 05/07/17 21:01 Total Protein 5.9 gm/dL (6.0-8.3) L 05/15/17 04:05 Albumin 2.9 gm/dL (3.7-5.3) L 05/15/17 04:05 Globulin 3.0 gm/dL 05/15/17 04:05 Albumin/Globulin Ratio 1.0 (1.0-1.8) 05/15/17 04:05 Lipase 176 U/L (11-82) H 05/08/17 04:35 Vitamin B12 882 pg/mL (211-946) 05/08/17 04:35 Folic Acid 6.0 ng/mL (>3.0) 05/08/17 04:35 TSH 0.55 uIU/ml (0.34-5.60) 05/08/17 04:35 Urine Source CATH 05/13/17 16:00 Urine Color YELLOW 05/13/17 16:00 Urine Clarity CLEAR (CLEAR) 05/13/17 16:00 Urine pH 6.5 (4.6 - 8.0) 05/13/17 16:00 Ur Specific [place] <= 1.005 (1.005-1.030) 05/13/17 16:00 Urine Protein NEGATIVE mg/dL (NEGATIVE) 05/13/17 16:00 Urine Glucose (UA) NEGATIVE mg/dL (NEGATIVE) 05/13/17 16:00 Urine Ketones NEGATIVE mg/dL (NEGATIVE) 05/13/17 16:00 Urine Blood MODERATE (NEGATIVE) H 09/23/17 16:00 Urine Nitrate NEGATIVE (NEGATIVE) 05/13/17 16:00 Urine Bilirubin NEGATIVE (NEGATIVE) 05/13/17 16:00 Urine Urobilinogen 0.2 E.U./dL (0.2 - 1.0) 05/13/17 16:00 Ur Leukocyte Esterase NEGATIVE (NEGATIVE) 05/13/17 16:00 Urine RBC 2-5 /hpf (0-5) 05/13/17 16:00 Urine WBC 0-2 /hpf (0-5) 05/13/17 16:00 Ur Epithelial Cells OCCASIONAL /lpf (FEW) 05/13/17 16:00 Amorphous Sediment MODERATE URATES (NONE SEEN) 05/07/17 13:45 Urine Bacteria NONE SEEN /hpf (NONE SEEN) 05/13/17 16:00 Urine Mucus MODERATE /lpf (FEW) 05/07/17 13:45 Urine Test NEGATIVE 05/07/17 13:45 Vancomycin Trough 11.1 ug/mL (10-20) 05/13/17 05:25 Random Vancomycin 15.5 ug/mL (5.0-40.0) 05/12/17 13:00 Valproic Acid 25.4 ug/mL (50.0-100.0) L 05/07/17 13:06 Hepatitis A IgM Ab Negative (Negative) 05/12/17 13:00 Hep Bs Antigen Negative (Negative) 05/12/17 13:00 Hep B Core IgM Ab Negative (Negative) 05/12/17 13:00 Hepatitis C Antibody <0.1 s/co ratio (0.0-0.9) 05/12/17 13:00 - Physical Exam Vitals and I&O: Vital Signs Temp 98.2 F 05/15/17 08:00 Pulse 96 05/15/17 11:00 Resp 16 05/15/17 11:00 BP 113/65 05/15/17 11:00 Pulse Ox 99 05/15/17 11:00 Intake & Output 05/14/17 05/15/17 05/15/17 18:59 06:59 18:59 Intake Total 480 2050 50 Output Total 1005 2200 Balance -525 -150 50 Weight (lbs) 57.833 kg 57.323 kg Intake: Intake, IV Amount 50 1300 50 Cefepime 1 gm In Dextrose 50 50 50 5% 50 ml @ 100 mls/hr IV Q12H [facility] Rx#:[id number] D5-0.45NS w/40 mEq KCL 1, 1000 000 ml @ 60 mls/hr IV . [id number] [facility] Rx#:[id number] Vancomycin HCl 1 gm In 250 Sodium Chloride 0.9% 250 ml @ 165 mls/hr IV Q18H [facility] Rx#:[id number] Oral 0 Tube Feeding 280 600 Other 150 150 Output: Drainage 55 100 Right Abdomen 55 100 Urine 950 2100 Other: # Bowel Movements 0 0 Active Medications: Current Medications Acetaminophen (Tylenol) 650 mg PO Q4H PRN PRN Reason: Mild Pain Or Fever above 101 Stop: 07/06/17 20:03 Last Admin: 05/14/17 18:22 Dose: 650 mg Acetaminophen (Tylenol 650mg Supp) 650 mg RC Q4H PRN PRN Reason: Fever > 101 Stop: 07/12/17 11:47 Last Admin: 05/13/17 12:04 Dose: 650 mg Al Hydrox/Mg Hydrox/Simethicone (Maalox) 30 ml PO Q6H PRN PRN Reason: Dyspepsia Stop: 07/06/17 20:03 Albuterol Sulfate (Albuterol 2.5mg/3ml Neb Ud) 2.5 mg HHN Q2HRT PRN PRN Reason: Shortness of Breath or Wheeze Stop: 07/06/17 20:03 Artificial Tears (Artificial Tears Ophth Soln) 1 drop EACH EYE BID [facility] Stop: 07/07/17 08:59 Last Admin: 05/15/17 08:25 Dose: 1 drop Divalproex Sodium (Depakote Sprinkle) 125 mg GT Q12HR [facility] PRN Reason: Protocol Stop: 07/07/17 11:59 Last Admin: 05/15/17 09:54 Dose: 125 mg Docusate Sodium (Colace) 100 mg GT DAILY [facility] Stop: 07/07/17 12:59 Last Admin: 05/15/17 08:22 Dose: 100 mg Ferrous Sulfate (Iron) 300 mg GT TID [facility] Stop: 07/07/17 13:59 Last Admin: 05/15/17 08:22 Dose: 300 mg Heparin Sodium (Porcine) (Heparin) 5,000 units SUBQ Q12HR [facility] Stop: 07/07/17 20:59 Last Admin: 05/15/17 08:22 Dose: 5,000 units Cefepime HCl 1 gm/ Dextrose 50 mls @ 100 mls/hr IV Q12H [facility] Stop: 07/06/17 20:59 Last Infusion: 05/15/17 11:42 Dose: Infused Vancomycin HCl 1 gm/ Sodium (Chloride) 250 mls @ 165 mls/hr IV Q18H [facility] Stop: 07/11/17 15:59 Last Infusion: 05/14/17 23:09 Dose: Infused Potassium Chloride/Dextrose/Sod Cl (D5-0.45ns W/40 Meq Kcl) 1,000 mls @ 60 mls/ hr IV .[id number] [facility] Stop: 07/12/17 13:59 Last Admin: 05/15/17 05:52 Dose: 60 mls/hr Ipratropium [place] (Atrovent Neb 0.5mg/2.5ml) 0.5 mg IH Q2HRT PRN PRN Reason: Shortness of Breath or Wheeze Stop: 07/06/17 20:03 Lactobacillus Rhamnosus (Culturelle) 1 each PO DAILY [facility] Stop: 07/08/17 08:59 Last Admin: 05/15/17 08:22 Dose: 1 each Latanoprost (Xalatan 0.005% [facility] Soln) 1 drop RIGHT EYE HS [facility] Stop: 07/06/17 20:59 Last Admin: 05/14/17 20:45 Dose: 1 drop Midodrine (Proamatine) 10 mg PO TID [facility] Stop: 07/08/17 13:59 Last Admin: 05/15/17 08:22 Dose: 10 mg Miscellaneous (Vte Chemical Prophylaxis Screen/ Admission) 1 ea [facility] PRN PRN PRN Reason: PROTOCOL Stop: 07/07/17 12:25 Miscellaneous (Probiotic Screen) 1 ea [facility] PRN PRN PRN Reason: PROTOCOL Stop: 07/07/17 14:41 Morphine Sulfate (Morphine) 2 mg IVP Q2HR PRN PRN Reason: Pain (Severe) Stop: 07/11/17 12:55 Last Admin: 05/15/17 12:20 Dose: 2 mg Ondansetron HCl (Zofran) 4 mg IV Q8H PRN PRN Reason: Nausea / Vomiting Stop: 07/06/17 20:03 Pantoprazole Sodium (Protonix) 40 mg GT QDAC [facility] Stop: 07/07/17 08:59 Last Admin: 05/15/17 06:36 Dose: 40 mg General: weak, alert HEENT: NC/AT, PERRLA Neck: Supple Lungs: CTAB Cardiovascular: RRR, Normal S1, Normal S2 Abdomen: soft, non-tender, non-distended Extremities: excoriation - Procedures Procedures: Procedures Procedure Code Date CHANGE FEEDING DEVICE IN UP INTEST TRACT, PORT STEWARD APPROACH [id number] 05/07/17 CHANGE GASTROSTOMY TUBE 82007 05/07/17 INSPECTION OF GALLBLADDER, PERCUTANEOUS ENDOSCOPIC APPROACH [id number] 05/07/17 REMOVAL OF GALLBLADDER 04853 05/07/17 RESECTION OF GALLBLADDER, OPEN APPROACH [id number] 05/07/17 Internal Medicine Assmt/Plan - Assessment Assessment: fever SEPSIS ALOC HYPERNATREMIA HYPOKALEMIA GT MALFUNCTION ACUTE UTI S/P LAP MARS tachycardia - Plan Plan: - Plan Plan: will sent ua and cxr will correct lytes PAIN MGMT IVF FOR HYDRATION cont on IV ANTIBIOTICS MONITOR ELECTROLYTES CONTINUE CURRENT PLAN OF CARE monitor hr will confer w dr najera as far as placemnt Nutritional Asmnt/Malnutr-PDOC - Dietary Evaluation Malnutrition Findings (Please click <Entered> for more info): Nutritional Asmnt/Malnutrition Start: 05/08/17 11: 46 Text: Status: Complete Freq: Document 05/08/17 11:46 GSUN (Rec: 05/08/17 12:08 GSUN [email or web address]) Nutritional Asmnt/Malnutrition Patient General Information Nutritional Screening High Risk Screening Diagnosis ER: dehydration, possible sepsis with leukocytosis, DM Pertinent Medical Hx/Surgical Hx ER report: PUD/GERD, trauma brain injury, chronic anemia Subjective Information 37 year old female from SNF. Pt was awake, non-verbal, family at bedside. GI Dr. Ch arrived during visit to replace g-tube. Confirmed with RN and pt's chart, pt is tube feeding dependent with pureed [place] for oral gratification. No muscle fat wasting noted. Current Diet Order/ Nutrition Support Currently no diet order. Pertinent Medications D5w, Iron, Novolog, Vancomycin , Zofran, Protonix Pertinent Labs 05/07: A1c 5.3 05/08: sodium 163H, potassium 3 .4L, glucose 143H, total bilirubin 1.3H Nutritional Hx/Data Height 1.7 m Height (Calculated Centimeters) 170.2 Current Weight (lbs) 63.049 kg Weight (Calculated Kilograms) 63.0 Weight (Calculated Grams) 03623.3 [place] Body Weight 135 Weight Status Approriate GI Symptoms Difficult in: Chewing Swallowing Food Allergies No Cultural/Ethnic/Religion Belief [facility]: pureed with [place] for oral gratification. EN two trista bolus 5 cans per day, providing 1185ml and 2375kcal. Usual diet at home Refer to above. Skin Integrity/Comment: Robin 13. LEft arm non- pitting 3+. Estimated Nutritional Goals BEE in Kcals: Using Current wt Calories/Kcals/Kg CBW 139lb/63.2kg Kcals Calculated 1580-2212kcal (25-35kcal/kg, possible sepsis and 2375kcal at SNF) Protein: Using Current wt Protein Calculated 63-82g (1-1.3g/kg) Fluid: ml 1580-2212ml (1ml/kcal) Nutritional Problem 1. Problem Problem Increased kcal and prot needs related to Etiology possible hypermetabolic state, unknown aeb Signs/Symptoms: possible sepsis, pt receieves 2375kcal at SNF Intervention/Recommendation Comments 1. Recommend Nutren 2.0 as pt toelrates this formula at [facility] at 40ml/hr x 24hrs, providing 960ml total volume, 1920kcal, and 81g protein. 2. Monitor glucose levels, if remains consistantly high, recommend Diabetisource at 70ml/hr x 24hrs, providing 1680ml total volume, 2016kcal, and 101g protein. 3. Recommend pureed [place] thick food items for oral gratification if needed as pt tolerates at SNF. Expected Outcomes/Goals Expected Outcomes/Goals 1. Pt to meet 100% of estimated nutritional needs on tube feeding with tolerance.
--- NOTE | 2017-05-15 23:51 | Infectious Disease Prog Note ---
Infectious Disease Subjective - Review of Systems Service Date: 05/15/17 Subjective: No new change. low grade fever in early am. Infectious Disease Objective - Results Result Diagrams: 05/17/17 04:50 05/17/17 04:50 Recent Labs: Laboratory Last Values WBC 9.8 Th/cmm (4.8-10.8) 05/15/17 04:05 RBC 3.79 Mil/cmm (3.80-5.10) L 05/15/17 04:05 Hgb 11.7 gm/dL (12-16) L 05/15/17 04:05 Hct 35.4 % (41.0-60) L 05/15/17 04:05 MCV 93.4 fl (81-100) 05/15/17 04:05 MCH 30.9 pg (27.0-31.0) 05/15/17 04:05 MCHC Differential 33.1 pg (28.0-36.0) 05/15/17 04:05 RDW 15.6 % (11.5-20.0) 05/15/17 04:05 Plt Count 391 Th/cmm (150-400) 05/15/17 04:05 MPV 8.8 fl 05/15/17 04:05 Neutrophils % 49.0 % (40.0-80.0) 05/15/17 04:05 Band Neutrophils % 5 % (0-10) 05/13/17 05:25 Lymphocytes % 38.0 % (20.0-50.0) 05/15/17 04:05 Monocytes % 10.0 % (2.0-10.0) 05/15/17 04:05 Eosinophils % 2.8 % (0.0-5.0) 05/15/17 04:05 Basophils % 0.2 % (0.0-2.0) 05/15/17 04:05 Neutrophils (Manual) 67 % (40-80) 05/13/17 05:25 Lymphocytes 24 % (20-50) 05/13/17 05:25 Monocytes 4 % (2-10) 05/13/17 05:25 Eosinophils 2 % (0-5) 05/08/17 04:35 Basophils 1 % (0-3) 05/08/17 04:35 Platelet Estimate ADEQUATE (NORMAL) 05/07/17 12:58 Platelet Morphology NORMAL (NORMAL) 05/07/17 12:58 RBC Morph Micro Appear NORMAL (NORMAL) 05/07/17 12:58 PT 12.0 SECONDS (9.5-11.5) H 05/07/17 12:58 INR 1.14 (0.5-1.4) 05/07/17 12:58 PTT (Actin FS) 24.5 SECONDS (26.0-38.0) L 05/07/17 12:58 Sodium 151 mEq/L (136-145) H 05/15/17 04:05 Potassium 3.8 mEq/L (3.5-5.1) 05/15/17 04:05 Chloride 118 mEq/L (98-107) H 05/15/17 04:05 Carbon Dioxide 29.2 mEq/L (21.0-31.0) 05/15/17 04:05 Anion Gap 7.6 (7.0-16.0) 05/15/17 04:05 BUN 5 mg/dL (7-25) L 05/15/17 04:05 Creatinine 0.5 mg/dL (0.6-1.2) L 05/15/17 04:05 Est GFR ( Amer) > 60.0 ml/min (>90) 05/15/17 04:05 Est GFR (Non-Af Amer) > 60.0 ml/min 05/15/17 04:05 BUN/Creatinine Ratio 10.0 05/15/17 04:05 Glucose 100 mg/dL (70-105) 05/15/17 04:05 POC Glucose 140 MG/DL (70 - 105) H 05/13/17 08:54 Hemoglobin A1c % 5.3 % (4.0-6.0) 05/07/17 13:59 Whole Bld Lactic Acid 2.01 mmol/L (0.60-1.99) H* 05/07/17 15:03 Calcium 8.3 mg/dL (8.6-10.3) L 05/15/17 04:05 Phosphorus 3.6 mg/dL (2.5-5.0) 05/10/17 04:06 Magnesium 2.3 mg/dL (1.9-2.7) 05/14/17 05:29 Total Bilirubin 0.5 mg/dL (0.3-1.0) 05/15/17 04:05 Direct Bilirubin 0.23 mg/dL (0.0-0.2) H 05/14/17 11:26 AST 37 U/L (13-39) 05/15/17 04:05 ALT 32 U/L (7-52) 05/15/17 04:05 Alkaline Phosphatase 70 U/L (34-104) 05/15/17 04:05 Ammonia 54 umol/L (16-53) H 05/08/17 04:35 Creatine Kinase 41 U/L (30-223) 05/07/17 12:58 Troponin I 0.06 ng/mL (0.01-0.05) H D 05/07/17 21:01 Total Protein 5.9 gm/dL (6.0-8.3) L 05/15/17 04:05 Albumin 2.9 gm/dL (3.7-5.3) L 05/15/17 04:05 Globulin 3.0 gm/dL 05/15/17 04:05 Albumin/Globulin Ratio 1.0 (1.0-1.8) 05/15/17 04:05 Lipase 176 U/L (11-82) H 05/08/17 04:35 Vitamin B12 882 pg/mL (211-946) 05/08/17 04:35 Folic Acid 6.0 ng/mL (>3.0) 05/08/17 04:35 TSH 0.55 uIU/ml (0.34-5.60) 05/08/17 04:35 Urine Source CATH 05/13/17 16:00 Urine Color YELLOW 05/13/17 16:00 Urine Clarity CLEAR (CLEAR) 05/13/17 16:00 Urine pH 6.5 (4.6 - 8.0) 05/13/17 16:00 Ur Specific [place] <= 1.005 (1.005-1.030) 05/13/17 16:00 Urine Protein NEGATIVE mg/dL (NEGATIVE) 05/13/17 16:00 Urine Glucose (UA) NEGATIVE mg/dL (NEGATIVE) 05/13/17 16:00 Urine Ketones NEGATIVE mg/dL (NEGATIVE) 05/13/17 16:00 Urine Blood MODERATE (NEGATIVE) H 05/13/17 16:00 Urine Nitrate NEGATIVE (NEGATIVE) 05/13/17 16:00 Urine Bilirubin NEGATIVE (NEGATIVE) 05/13/17 16:00 Urine Urobilinogen 0.2 E.U./dL (0.2 - 1.0) 05/13/17 16:00 Ur Leukocyte Esterase NEGATIVE (NEGATIVE) 05/13/17 16:00 Urine RBC 2-5 /hpf (0-5) 05/13/17 16:00 Urine WBC 0-2 /hpf (0-5) 05/13/17 16:00 Ur Epithelial Cells OCCASIONAL /lpf (FEW) 05/13/17 16:00 Amorphous Sediment MODERATE URATES (NONE SEEN) 05/07/17 13:45 Urine Bacteria NONE SEEN /hpf (NONE SEEN) 05/13/17 16:00 Urine Mucus MODERATE /lpf (FEW) 05/07/17 13:45 Urine Test NEGATIVE 05/07/17 13:45 Vancomycin Trough 11.1 ug/mL (10-20) 05/13/17 05:25 Random Vancomycin 15.5 ug/mL (5.0-40.0) 05/12/17 13:00 Valproic Acid 25.4 ug/mL (50.0-100.0) L 05/07/17 13:06 Hepatitis A IgM Ab Negative (Negative) 05/12/17 13:00 Hep Bs Antigen Negative (Negative) 05/12/17 13:00 Hep B Core IgM Ab Negative (Negative) 05/12/17 13:00 Hepatitis C Antibody <0.1 s/co ratio (0.0-0.9) 05/12/17 13:00 - Physical Exam Vitals and I&O: Vital Signs Temp 99.0 F 05/15/17 20:00 Pulse 115 05/15/17 20:00 Resp 20 05/15/17 20:00 BP 116/74 05/15/17 20:00 Pulse Ox 96 05/15/17 20:00 Intake & Output 05/15/17 05/15/17 05/16/17 06:59 18:59 06:59 Intake Total 2050 1150 1000 Output Total 2200 1130 Balance -280 88 9629 Weight (lbs) 57.323 kg 57.323 kg Intake: Intake, IV Amount 1300 50 1000 Cefepime 1 gm In Dextrose 50 50 5% 50 ml @ 100 mls/hr IV Q12H [facility] Rx#:[id number] D5-0.45NS w/40 mEq KCL 1, 1000 1000 000 ml @ 60 mls/hr IV . [id number] [facility] Rx#:[id number] Vancomycin HCl 1 gm In 250 Sodium Chloride 0.9% 250 ml @ 165 mls/hr IV Q18H [facility] Rx#:[id number] Oral 0 Tube Feeding 600 600 Other 150 500 Output: Drainage 100 80 Right Abdomen 100 80 Urine 2100 1050 Other: # Bowel Movements 0 0 Active Medications: Current Medications Acetaminophen (Tylenol) 650 mg PO Q4H PRN PRN Reason: Mild Pain Or Fever above 101 Stop: 07/06/17 20:03 Last Admin: 05/14/17 18:22 Dose: 650 mg Acetaminophen (Tylenol 650mg Supp) 650 mg RC Q4H PRN PRN Reason: Fever > 101 Stop: 07/12/17 11:47 Last Admin: 05/13/17 12:04 Dose: 650 mg Al Hydrox/Mg Hydrox/Simethicone (Maalox) 30 ml PO Q6H PRN PRN Reason: Dyspepsia Stop: 07/06/17 20:03 Albuterol Sulfate (Albuterol 2.5mg/3ml Neb Ud) 2.5 mg HHN Q2HRT PRN PRN Reason: Shortness of Breath or Wheeze Stop: 07/06/17 20:03 Artificial Tears (Artificial Tears Ophth Soln) 1 drop EACH EYE BID [facility] Stop: 07/07/17 08:59 Last Admin: 05/15/17 16:39 Dose: 1 drop Divalproex Sodium (Depakote Sprinkle) 125 mg GT Q12HR [facility] PRN Reason: Protocol Stop: 07/07/17 11:59 Last Admin: 05/15/17 20:46 Dose: 125 mg Docusate Sodium (Colace) 100 mg GT DAILY [facility] Stop: 07/07/17 12:59 Last Admin: 05/15/17 08:22 Dose: 100 mg Ferrous Sulfate (Iron) 300 mg GT TID [facility] Stop: 07/07/17 13:59 Last Admin: 05/15/17 20:38 Dose: 300 mg Heparin Sodium (Porcine) (Heparin) 5,000 units SUBQ Q12HR [facility] Stop: 07/07/17 20:59 Last Admin: 05/15/17 20:39 Dose: 5,000 units Cefepime HCl 1 gm/ Dextrose 50 mls @ 100 mls/hr IV Q12H [facility] Stop: 07/06/17 20:59 Last Admin: 05/15/17 20:38 Dose: 100 mls/hr Vancomycin HCl 1 gm/ Sodium (Chloride) 250 mls @ 165 mls/hr IV Q18H [facility] Stop: 07/11/17 15:59 Last Admin: 05/15/17 15:27 Dose: 165 mls/hr Potassium Chloride/Dextrose/Sod Cl (D5-0.45ns W/40 Meq Kcl) 1,000 mls @ 60 mls/ hr IV .[id number] [facility] Stop: 07/12/17 13:59 Last Admin: 05/15/17 23:37 Dose: 60 mls/hr Ipratropium [place] (Atrovent Neb 0.5mg/2.5ml) 0.5 mg IH Q2HRT PRN PRN Reason: Shortness of Breath or Wheeze Stop: 07/06/17 20:03 Lactobacillus Rhamnosus (Culturelle) 1 each PO DAILY [facility] Stop: 07/08/17 08:59 Last Admin: 05/15/17 08:22 Dose: 1 each Latanoprost (Xalatan 0.005% [facility] Soln) 1 drop RIGHT EYE HS [facility] Stop: 07/06/17 20:59 Last Admin: 05/15/17 20:44 Dose: 1 drop Midodrine (Proamatine) 10 mg PO TID [facility] Stop: 07/08/17 13:59 Last Admin: 05/15/17 20:38 Dose: 10 mg Miscellaneous (Vte Chemical Prophylaxis Screen/ Admission) 1 ea [facility] PRN PRN PRN Reason: PROTOCOL Stop: 07/07/17 12:25 Miscellaneous (Probiotic Screen) 1 ea [facility] PRN PRN PRN Reason: PROTOCOL Stop: 07/07/17 14:41 Morphine Sulfate (Morphine) 2 mg IVP Q2HR PRN PRN Reason: Pain (Severe) Stop: 07/11/17 12:55 Last Admin: 05/15/17 20:40 Dose: 2 mg Ondansetron HCl (Zofran) 4 mg IV Q8H PRN PRN Reason: Nausea / Vomiting Stop: 07/06/17 20:03 Pantoprazole Sodium (Protonix) 40 mg GT QDAC KELSEY Stop: 07/07/17 08:59 Last Admin: 05/15/17 06:36 Dose: 40 mg General: no acute distress, cachectic HEENT: atraumatic, normocephalic, PERRLA, EOMI, moist mucous membrane Neck: supple, no thyromegaly Cardiovascular: S1S2, regular Lungs: clear to auscultation bilaterally, clear to percussion Abdomen: soft, drain (x1), bowel sounds, other (surgical incision good.), no tender, no distended Extremities: no cyanosis, no clubbing, no edema Neurological: awake, alert Skin: intact - Procedures Procedures: Procedures Procedure Code Date CHANGE FEEDING DEVICE IN UP INTEST TRACT, KEYPUNCH OPERATOR APPROACH [id number] 05/07/17 CHANGE GASTROSTOMY TUBE 49819 05/07/17 INSPECTION OF GALLBLADDER, PERCUTANEOUS ENDOSCOPIC APPROACH [id number] 05/07/17 REMOVAL OF GALLBLADDER 83717 05/07/17 RESECTION OF GALLBLADDER, OPEN APPROACH [id number] 05/07/17 Infectious Disease Assmt/Plan - Problem List Patient Problems: All Active Problems Atypical chest pain (Active) R07.89 - Assessment Assessment: 1. Acute cholecytitis. 2. CARGO MATE shunt 3. Traumatic brain injury. 4. Dehydration. 5. Altered mental status, due to metabolic encephalopathy 6. Hypernatremia. 7. S/p open maribel. 8. fever post op. Plan: Conitnue the same antibiotics, cefepime and vanco IV. - Plan Plan: Continue the same antibiotics, cefepime and vanco IV. Nutritional Asmnt/Malnutr-PDOC - Dietary Evaluation Malnutrition Findings (Please click <Entered> for more info): Nutritional Asmnt/Malnutrition Start: 05/08/17 11: 46 Text: Status: Complete Freq: Document 05/08/17 11:46 GSUN (Rec: 05/08/17 12:08 GSUN [email or web address]) Nutritional Asmnt/Malnutrition Patient General Information Nutritional Screening High Risk Screening Diagnosis ER: dehydration, possible sepsis with leukocytosis, DM Pertinent Medical Hx/Surgical Hx ER report: PUD/GERD, trauma brain injury, chronic anemia Subjective Information 37 year old female from SNF. Pt was awake, non-verbal, family at bedside. GI Dr. Ch arrived during visit to replace g-tube. Confirmed with RN and pt's chart, pt is tube feeding dependent with pureed [place] for oral gratification. No muscle fat wasting noted. Current Diet Order/ Nutrition Support Currently no diet order. Pertinent Medications D5w, Iron, Novolog, Vancomycin , Zofran, Protonix Pertinent Labs 05/07: A1c 5.3 05/08: sodium 163H, potassium 3 .4L, glucose 143H, total bilirubin 1.3H Nutritional Hx/Data Height 1.7 m Height (Calculated Centimeters) 170.2 Current Weight (lbs) 63.049 kg Weight (Calculated Kilograms) 63.0 Weight (Calculated Grams) 34459.3 [place]man Body Weight 135 Weight Status Approriate GI Symptoms Difficult in: Chewing Swallowing Food Allergies No Cultural/Ethnic/Islam Belief [facility]: pureed with [place] for oral gratification. EN two trista bolus 5 cans per day, providing 1185ml and 2375kcal. Usual diet at home Refer to above. Skin Integrity/Comment: Robin 13. LEft arm non- pitting 3+. Estimated Nutritional Goals BEE in Kcals: Using Current wt Calories/Kcals/Kg CBW 139lb/63.2kg Kcals Calculated 1580-2212kcal (25-35kcal/kg, possible sepsis and 2375kcal at SNF) Protein: Using Current wt Protein Calculated 63-82g (1-1.3g/kg) Fluid: ml 1580-2212ml (1ml/kcal) Nutritional Problem 1. Problem Problem Increased kcal and prot needs related to Etiology possible hypermetabolic state, unknown aeb Signs/Symptoms: possible sepsis, pt receieves 2375kcal at [facility] Intervention/Recommendation Comments 1. Recommend Nutren 2.0 as pt toelrates this formula at [facility] at 40ml/hr x 24hrs, providing 960ml total volume, 1920kcal, and 81g protein. 2. Monitor glucose levels, if remains consistantly high, recommend Diabetisource at 70ml/hr x 24hrs, providing 1680ml total volume, 2016kcal, and 101g protein. 3. Recommend pureed [place] thick food items for oral gratification if needed as pt tolerates at SNF. Expected Outcomes/Goals Expected Outcomes/Goals 1. Pt to meet 100% of estimated nutritional needs on tube feeding with tolerance.
[2017-05-16 06:36] LABS: HEMATOCRIT 36.3 % (41.0-60); HEMOGLOBIN 11.9 gm/dL (12-16); MEAN CELL VOLUME 92.4 fl (81-100); MEAN CORPUSCULAR HEMOGLOBIN 30.3 pg (27.0-31.0); MEAN CORPUSCULAR HGB CONC 32.8 pg (28.0-36.0); MEAN PLATELET VOLUME 8.3 fl; NEUTROPHILE ABSOLUTE 7.4 Th/cmm (1.8-8.0); RED BLOOD COUNT 3.92 Mil/cmm (3.80-5.10)
[2017-05-16 06:47] LABS: WHITE BLOOD COUNT 12.8 Th/cmm (4.8-10.8)
[2017-05-16 06:48] LABS: PLATELET COUNT 524 Th/cmm (150-400)
[2017-05-16 07:54] LABS: BAND NEUTROPHILE 1 % (0-10); NEUTROPHILS 63 % (40-80); TOTAL CELLS COUNTED 100
[2017-05-16 07:55] LABS: EOSINOPHIL 1 % (0-5)
[2017-05-16] MEDS: Lactobacillus Rhamnosus 10 Billion CFU Capsule PO SCH (08:50)
[2017-05-16] MEDS: Docusate Sodium 100 mg/10 mL UD GT SCH (08:50)
[2017-05-16] MEDS: Ferrous Sulfate 300 MG/5 ML UDC GT SCH ×3 (08:50→21:30)
[2017-05-16] MEDS: Pantoprazole 40 mg/Packet GT SCH (09:01)
--- NOTE | 2017-05-16 09:16 | General Progress Note ---
Subjective - Review of Systems Service Date: 05/16/17 Events since last encounter: labs ok AZIZA drain out incision clean and healing Objective - Results Result Diagrams: 05/16/17 05:55 05/15/17 04:05 Recent Labs: Laboratory Last Values WBC 12.8 Th/cmm (4.8-10.8) H D 05/16/17 05:55 RBC 3.92 Mil/cmm (3.80-5.10) 05/16/17 05:55 Hgb 11.9 gm/dL (12-16) L 05/16/17 05:55 Hct 36.3 % (41.0-60) L 05/16/17 05:55 MCV 92.4 fl (81-100) 05/16/17 05:55 MCH 30.3 pg (27.0-31.0) 05/16/17 05:55 MCHC Differential 32.8 pg (28.0-36.0) 05/16/17 05:55 RDW 15.0 % (11.5-20.0) 05/16/17 05:55 Plt Count 524 Th/cmm (150-400) H D 05/16/17 05:55 MPV 8.3 fl 05/16/17 05:55 Neutrophils % PACKAGING SALES CONSULTANT 05/16/17 05:55 Band Neutrophils % 1 % (0-10) 05/16/17 05:55 Lymphocytes % PACKAGING SALES CONSULTANT 05/16/17 05:55 Monocytes % PACKAGING SALES CONSULTANT 05/16/17 05:55 Eosinophils % PACKAGING SALES CONSULTANT 05/16/17 05:55 Basophils % PACKAGING SALES CONSULTANT 05/16/17 05:55 Neutrophils (Manual) 63 % (40-80) 05/16/17 05:55 Lymphocytes 32 % (20-50) 05/16/17 05:55 Monocytes 3 % (2-10) 05/16/17 05:55 Eosinophils 1 % (0-5) 05/16/17 05:55 Basophils 1 % (0-3) 05/08/17 04:35 Platelet Estimate ADEQUATE (NORMAL) 05/07/17 12:58 Platelet Morphology NORMAL (NORMAL) 05/07/17 12:58 RBC Morph Micro Appear NORMAL (NORMAL) 05/07/17 12:58 PT 12.0 SECONDS (9.5-11.5) H 05/07/17 12:58 INR 1.14 (0.5-1.4) 05/07/17 12:58 PTT (Actin FS) 24.5 SECONDS (26.0-38.0) L 05/07/17 12:58 Sodium 151 mEq/L (136-145) H 05/15/17 04:05 Potassium 3.8 mEq/L (3.5-5.1) 05/15/17 04:05 Chloride 118 mEq/L (98-107) H 05/15/17 04:05 Carbon Dioxide 29.2 mEq/L (21.0-31.0) 05/15/17 04:05 Anion Gap 7.6 (7.0-16.0) 05/15/17 04:05 BUN 5 mg/dL (7-25) L 05/15/17 04:05 Creatinine 0.5 mg/dL (0.6-1.2) L 05/15/17 04:05 Est GFR ( Amer) > 60.0 ml/min (>90) 05/15/17 04:05 Est GFR (Non-Af Amer) > 60.0 ml/min 05/15/17 04:05 BUN/Creatinine Ratio 10.0 05/15/17 04:05 Glucose 100 mg/dL (70-105) 05/15/17 04:05 POC Glucose 140 MG/DL (70 - 105) H 05/13/17 08:54 Hemoglobin A1c % 5.3 % (4.0-6.0) 05/07/17 13:59 Whole Bld Lactic Acid 2.01 mmol/L (0.60-1.99) H* 05/07/17 15:03 Calcium 8.3 mg/dL (8.6-10.3) L 05/15/17 04:05 Phosphorus 3.6 mg/dL (2.5-5.0) 05/10/17 04:06 Magnesium 2.3 mg/dL (1.9-2.7) 05/14/17 05:29 Total Bilirubin 0.5 mg/dL (0.3-1.0) 05/15/17 04:05 Direct Bilirubin 0.23 mg/dL (0.0-0.2) H 05/14/17 11:26 AST 37 U/L (13-39) 05/15/17 04:05 ALT 32 U/L (7-52) 05/15/17 04:05 Alkaline Phosphatase 70 U/L (34-104) 05/15/17 04:05 Ammonia 54 umol/L (16-53) H 05/08/17 04:35 Creatine Kinase 41 U/L (30-223) 05/07/17 12:58 Troponin I 0.06 ng/mL (0.01-0.05) H D 05/07/17 21:01 Total Protein 5.9 gm/dL (6.0-8.3) L 05/15/17 04:05 Albumin 2.9 gm/dL (3.7-5.3) L 05/15/17 04:05 Globulin 3.0 gm/dL 05/15/17 04:05 Albumin/Globulin Ratio 1.0 (1.0-1.8) 05/15/17 04:05 Lipase 176 U/L (11-82) H 05/08/17 04:35 Vitamin B12 882 pg/mL (211-946) 05/08/17 04:35 Folic Acid 6.0 ng/mL (>3.0) 05/08/17 04:35 TSH 0.55 uIU/ml (0.34-5.60) 05/08/17 04:35 Urine Source CATH 05/13/17 16:00 Urine Color YELLOW 05/13/17 16:00 Urine Clarity CLEAR (CLEAR) 05/13/17 16:00 Urine pH 6.5 (4.6 - 8.0) 05/13/17 16:00 Ur Specific [place] <= 1.005 (1.005-1.030) 05/13/17 16:00 Urine Protein NEGATIVE mg/dL (NEGATIVE) 05/13/17 16:00 Urine Glucose (UA) NEGATIVE mg/dL (NEGATIVE) 05/13/17 16:00 Urine Ketones NEGATIVE mg/dL (NEGATIVE) 05/13/17 16:00 Urine Blood MODERATE (NEGATIVE) H 05/13/17 16:00 Urine Nitrate NEGATIVE (NEGATIVE) 05/13/17 16:00 Urine Bilirubin NEGATIVE (NEGATIVE) 05/13/17 16:00 Urine Urobilinogen 0.2 E.U./dL (0.2 - 1.0) 05/13/17 16:00 Ur Leukocyte Esterase NEGATIVE (NEGATIVE) 05/13/17 16:00 Urine RBC 2-5 /hpf (0-5) 05/13/17 16:00 Urine WBC 0-2 /hpf (0-5) 05/13/17 16:00 Ur Epithelial Cells OCCASIONAL /lpf (FEW) 05/13/17 16:00 Amorphous Sediment MODERATE URATES (NONE SEEN) 05/07/17 13:45 Urine Bacteria NONE SEEN /hpf (NONE SEEN) 05/13/17 16:00 Urine Mucus MODERATE /lpf (FEW) 05/07/17 13:45 Urine Test NEGATIVE 05/07/17 13:45 Vancomycin Trough 11.1 ug/mL (10-20) 05/13/17 05:25 Random Vancomycin 15.5 ug/mL (5.0-40.0) 05/12/17 13:00 Valproic Acid 25.4 ug/mL (50.0-100.0) L 05/07/17 13:06 Hepatitis A IgM Ab Negative (Negative) 05/12/17 13:00 Hep Bs Antigen Negative (Negative) 05/12/17 13:00 Hep B Core IgM Ab Negative (Negative) 05/12/17 13:00 Hepatitis C Antibody <0.1 s/co ratio (0.0-0.9) 05/12/17 13:00 - Physical Exam Vitals and I&O: Vital Signs Temp 98.2 F 05/16/17 07:47 Pulse 114 05/16/17 07:47 Resp 17 05/16/17 07:47 BP 105/71 05/16/17 07:47 Pulse Ox 94 05/16/17 07:47 Intake & Output 05/15/17 05/16/17 05/16/17 18:59 06:59 18:59 Intake Total 1150 1650 Output Total 1130 1050 Balance 20 600 Weight (lbs) 57.323 kg 63.503 kg Intake: Intake, IV Amount 50 1050 Cefepime 1 gm In Dextrose 50 50 5% 50 ml @ 100 mls/hr IV Q12H [facility] Rx#:[id number] D5-0.45NS w/40 mEq KCL 1, 1000 000 ml @ 60 mls/hr IV . [id number] [facility] Rx#:[id number] Tube Feeding 600 600 Other 500 Output: Drainage 80 50 Right Abdomen 80 50 Urine 1050 1000 Other: # Bowel Movements 0 Active Medications: Current Medications Acetaminophen (Tylenol) 650 mg PO Q4H PRN PRN Reason: Mild Pain Or Fever above 101 Stop: 07/06/17 20:03 Last Admin: 05/14/17 18:22 Dose: 650 mg Acetaminophen (Tylenol 650mg Supp) 650 mg RC Q4H PRN PRN Reason: Fever > 101 Stop: 07/12/17 11:47 Last Admin: 05/13/17 12:04 Dose: 650 mg Al Hydrox/Mg Hydrox/Simethicone (Maalox) 30 ml PO Q6H PRN PRN Reason: Dyspepsia Stop: 07/06/17 20:03 Albuterol Sulfate (Albuterol 2.5mg/3ml Neb Ud) 2.5 mg HHN Q2HRT PRN PRN Reason: Shortness of Breath or Wheeze Stop: 07/06/17 20:03 Artificial Tears (Artificial Tears Ophth Soln) 1 drop EACH EYE BID [facility] Stop: 07/07/17 08:59 Last Admin: 05/15/17 16:39 Dose: 1 drop Divalproex Sodium (Depakote Sprinkle) 125 mg GT Q12HR [facility] PRN Reason: Protocol Stop: 07/07/17 11:59 Last Admin: 05/16/17 08:50 Dose: 125 mg Docusate Sodium (Colace) 100 mg GT DAILY [facility] Stop: 07/07/17 12:59 Last Admin: 05/16/17 08:50 Dose: 100 mg Ferrous Sulfate (Iron) 300 mg GT TID [facility] Stop: 07/07/17 13:59 Last Admin: 05/16/17 08:50 Dose: 300 mg Heparin Sodium (Porcine) (Heparin) 5,000 units SUBQ Q12HR [facility] Stop: 07/07/17 20:59 Last Admin: 05/16/17 08:50 Dose: 5,000 units Cefepime HCl 1 gm/ Dextrose 50 mls @ 100 mls/hr IV Q12H [facility] Stop: 07/06/17 20:59 Last Admin: 05/16/17 08:47 Dose: 100 mls/hr Vancomycin HCl 1 gm/ Sodium (Chloride) 250 mls @ 165 mls/hr IV Q18H [facility] Stop: 07/11/17 15:59 Last Admin: 05/15/17 15:27 Dose: 165 mls/hr Potassium Chloride/Dextrose/Sod Cl (D5-0.45ns W/40 Meq Kcl) 1,000 mls @ 60 mls/ hr IV .[id number] [facility] Stop: 07/12/17 13:59 Last Admin: 05/15/17 23:37 Dose: 60 mls/hr Ipratropium [place] (Atrovent Neb 0.5mg/2.5ml) 0.5 mg IH Q2HRT PRN PRN Reason: Shortness of Breath or Wheeze Stop: 07/06/17 20:03 Lactobacillus Rhamnosus (Culturelle) 1 each PO DAILY [facility] Stop: 07/08/17 08:59 Last Admin: 05/16/17 08:50 Dose: 1 each Latanoprost (Xalatan 0.005% [facility] Sol) 1 drop RIGHT EYE HS [facility] Stop: 07/06/17 20:59 Last Admin: 05/15/17 20:44 Dose: 1 drop Midodrine (Proamatine) 10 mg PO TID [facility] Stop: 07/08/17 13:59 Last Admin: 05/16/17 08:50 Dose: 10 mg Miscellaneous (Vte Chemical Prophylaxis Screen/ Admission) 1 ea PRN PRN PRN Reason: PROTOCOL Stop: 07/07/17 12:25 Miscellaneous (Probiotic Screen) 1 ea PRN PRN PRN Reason: PROTOCOL Stop: 07/07/17 14:41 Morphine Sulfate (Morphine) 2 mg IVP Q2HR PRN PRN Reason: Pain (Severe) Stop: 07/11/17 12:55 Last Admin: 05/15/17 20:40 Dose: 2 mg Ondansetron HCl (Zofran) 4 mg IV Q8H PRN PRN Reason: Nausea / Vomiting Stop: 07/06/17 20:03 Pantoprazole Sodium (Protonix) 40 mg GT QDAC [facility] Stop: 07/07/17 08:59 Last Admin: 05/16/17 09:01 Dose: 40 mg - Procedures Procedures: Procedures Procedure Code Date CHANGE FEEDING DEVICE IN UP INTEST TRACT, RESIDENTIAL TREATMENT STAFF APPROACH [id number] 05/07/17 CHANGE GASTROSTOMY TUBE 38094 05/07/17 INSPECTION OF GALLBLADDER, PERCUTANEOUS ENDOSCOPIC APPROACH [id number] 05/07/17 REMOVAL OF GALLBLADDER 46589 05/07/17 RESECTION OF GALLBLADDER, OPEN APPROACH [id number] 05/07/17 Assessment/Plan - Problem List Patient Problems: All Active Problems Atypical chest pain (Active) R07.89 Nutritional Asmnt/Malnutr-PDOC - Dietary Evaluation Malnutrition Findings (Please click <Entered> for more info): Nutritional Asmnt/Malnutrition Start: 05/08/17 11: 46 Text: Status: Complete Freq: Document 05/08/17 11:46 GSJANIS (Rec: 05/08/17 12:08 JUAN LUIS [email or web address]) Nutritional Asmnt/Malnutrition Patient General Information Nutritional Screening High Risk Screening Diagnosis ER: dehydration, possible sepsis with leukocytosis, DM Pertinent Medical Hx/Surgical Hx ER report: PUD/GERD, trauma brain injury, chronic anemia Subjective Information 37 year old female from SNF. Pt was awake, non-verbal, family at bedside. GI Dr. Ch arrived during visit to replace g-tube. Confirmed with RN and pt's chart, pt is tube feeding dependent with pureed Naylor for oral gratification. No muscle fat wasting noted. Current Diet Order/ Nutrition Support Currently no diet order. Pertinent Medications D5w, Iron, Novolog, Vancomycin , Zofran, Protonix Pertinent Labs 05/07: A1c 5.3 05/08: sodium 163H, potassium 3 .4L, glucose 143H, total bilirubin 1.3H Nutritional Hx/Data Height 1.7 m Height (Calculated Centimeters) 170.2 Current Weight (lbs) 63.049 kg Weight (Calculated Kilograms) 63.0 Weight (Calculated Grams) [address].3 [place] Body Weight 135 Weight Status Approriate GI Symptoms Difficult in: Chewing Swallowing Food Allergies No Cultural/Ethnic/Confucianism Belief [facility]: pureed with Naylor for oral gratification. EN two trista bolus 5 cans per day, providing 1185ml and 2375kcal. Usual diet at home Refer to above. Skin Integrity/Comment: Robin 13. LEft arm non- pitting 3+. Estimated Nutritional Goals BEE in Kcals: Using Current wt Calories/Kcals/Kg CBW 139lb/63.2kg Kcals Calculated 1580-2212kcal (25-35kcal/kg, possible sepsis and 2375kcal at SNF) Protein: Using Current wt Protein Calculated 63-82g (1-1.3g/kg) Fluid: ml 1580-2212ml (1ml/kcal) Nutritional Problem 1. Problem Problem Increased kcal and prot needs related to Etiology possible hypermetabolic state, unknown aeb Signs/Symptoms: possible sepsis, pt receieves 2375kcal at [facility] Intervention/Recommendation Comments 1. Recommend Nutren 2.0 as pt toelrates this formula at [facility] at 40ml/hr x 24hrs, providing 960ml total volume, 1920kcal, and 81g protein. 2. Monitor glucose levels, if remains consistantly high, recommend Diabetisource at 70ml/hr x 24hrs, providing 1680ml total volume, 2016kcal, and 101g protein. 3. Recommend pureed Naylor thick food items for oral gratification if needed as pt tolerates at [facility]. Expected Outcomes/Goals Expected Outcomes/Goals 1. Pt to meet 100% of estimated nutritional needs on tube feeding with tolerance.
[2017-05-16] MEDS: Polyvinyl Alcohol Ophth Soln 15 mL Bottle EACH EYE SCH ×2 (10:05→17:11)
--- NOTE | 2017-05-16 12:27 | Internal Medicine Prog Note ---
Internal Medicine Subjective - Subjective Service Date: 05/16/17 (patient pulled out central line ) Patient is:: awake, non-interactive Per staff patient has:: no adverse event, confused, tolerating meds Internal Medicine Objective - Results Result Diagrams: 05/16/17 05:55 05/15/17 04:05 Recent Labs: Laboratory Last Values WBC 12.8 Th/cmm (4.8-10.8) H D 05/16/17 05:55 RBC 3.92 Mil/cmm (3.80-5.10) 05/16/17 05:55 Hgb 11.9 gm/dL (12-16) L 05/16/17 05:55 Hct 36.3 % (41.0-60) L 05/16/17 05:55 MCV 92.4 fl (81-100) 05/16/17 05:55 MCH 30.3 pg (27.0-31.0) 05/16/17 05:55 MCHC Differential 32.8 pg (28.0-36.0) 05/16/17 05:55 RDW 15.0 % (11.5-20.0) 05/16/17 05:55 Plt Count 524 Th/cmm (150-400) H D 05/16/17 05:55 MPV 8.3 fl 05/16/17 05:55 Neutrophils % ENVIRONMENTAL SAMPLER 05/16/17 05:55 Band Neutrophils % 1 % (0-10) 05/16/17 05:55 Lymphocytes % ENVIRONMENTAL SAMPLER 05/16/17 05:55 Monocytes % ENVIRONMENTAL SAMPLER 05/16/17 05:55 Eosinophils % ENVIRONMENTAL SAMPLER 05/16/17 05:55 Basophils % ENVIRONMENTAL SAMPLER 05/16/17 05:55 Neutrophils (Manual) 63 % (40-80) 05/16/17 05:55 Lymphocytes 32 % (20-50) 05/16/17 05:55 Monocytes 3 % (2-10) 05/16/17 05:55 Eosinophils 1 % (0-5) 05/16/17 05:55 Basophils 1 % (0-3) 05/08/17 04:35 Platelet Estimate ADEQUATE (NORMAL) 05/07/17 12:58 Platelet Morphology NORMAL (NORMAL) 05/07/17 12:58 RBC Morph Micro Appear NORMAL (NORMAL) 05/07/17 12:58 PT 12.0 SECONDS (9.5-11.5) H 05/07/17 12:58 INR 1.14 (0.5-1.4) 05/07/17 12:58 PTT (Actin FS) 24.5 SECONDS (26.0-38.0) L 05/07/17 12:58 Sodium 151 mEq/L (136-145) H 05/15/17 04:05 Potassium 3.8 mEq/L (3.5-5.1) 05/15/17 04:05 Chloride 118 mEq/L (98-107) H 05/15/17 04:05 Carbon Dioxide 29.2 mEq/L (21.0-31.0) 05/15/17 04:05 Anion Gap 7.6 (7.0-16.0) 05/15/17 04:05 BUN 5 mg/dL (7-25) L 05/15/17 04:05 Creatinine 0.5 mg/dL (0.6-1.2) L 05/15/17 04:05 Est GFR ( Amer) > 60.0 ml/min (>90) 05/15/17 04:05 Est GFR (Non-Af Amer) > 60.0 ml/min 05/15/17 04:05 BUN/Creatinine Ratio 10.0 05/15/17 04:05 Glucose 100 mg/dL (70-105) 05/15/17 04:05 POC Glucose 140 MG/DL (70 - 105) H 05/13/17 08:54 Hemoglobin A1c % 5.3 % (4.0-6.0) 05/07/17 13:59 Whole Bld Lactic Acid 2.01 mmol/L (0.60-1.99) H* 05/07/17 15:03 Calcium 8.3 mg/dL (8.6-10.3) L 05/15/17 04:05 Phosphorus 3.6 mg/dL (2.5-5.0) 05/10/17 04:06 Magnesium 2.3 mg/dL (1.9-2.7) 05/14/17 05:29 Total Bilirubin 0.5 mg/dL (0.3-1.0) 05/15/17 04:05 Direct Bilirubin 0.23 mg/dL (0.0-0.2) H 05/14/17 11:26 AST 37 U/L (13-39) 05/15/17 04:05 ALT 32 U/L (7-52) 05/15/17 04:05 Alkaline Phosphatase 70 U/L (34-104) 05/15/17 04:05 Ammonia 54 umol/L (16-53) H 05/08/17 04:35 Creatine Kinase 41 U/L (30-223) 05/07/17 12:58 Troponin I 0.06 ng/mL (0.01-0.05) H D 05/07/17 21:01 Total Protein 5.9 gm/dL (6.0-8.3) L 05/15/17 04:05 Albumin 2.9 gm/dL (3.7-5.3) L 05/15/17 04:05 Globulin 3.0 gm/dL 05/15/17 04:05 Albumin/Globulin Ratio 1.0 (1.0-1.8) 05/15/17 04:05 Lipase 176 U/L (11-82) H 05/08/17 04:35 Vitamin B12 882 pg/mL (211-946) 05/08/17 04:35 Folic Acid 6.0 ng/mL (>3.0) 05/08/17 04:35 TSH 0.55 uIU/ml (0.34-5.60) 05/08/17 04:35 Urine Source CATH 05/13/17 16:00 Urine Color YELLOW 05/13/17 16:00 Urine Clarity CLEAR (CLEAR) 05/13/17 16:00 Urine pH 6.5 (4.6 - 8.0) 05/13/17 16:00 Ur Specific [place] <= 1.005 (1.005-1.030) 05/13/17 16:00 Urine Protein NEGATIVE mg/dL (NEGATIVE) 05/13/17 16:00 Urine Glucose (UA) NEGATIVE mg/dL (NEGATIVE) 05/13/17 16:00 Urine Ketones NEGATIVE mg/dL (NEGATIVE) 05/13/17 16:00 Urine Blood MODERATE (NEGATIVE) H 05/13/17 16:00 Urine Nitrate NEGATIVE (NEGATIVE) 05/13/17 16:00 Urine Bilirubin NEGATIVE (NEGATIVE) 05/13/17 16:00 Urine Urobilinogen 0.2 E.U./dL (0.2 - 1.0) 05/13/17 16:00 Ur Leukocyte Esterase NEGATIVE (NEGATIVE) 05/13/17 16:00 Urine RBC 2-5 /hpf (0-5) 05/13/17 16:00 Urine WBC 0-2 /hpf (0-5) 05/13/17 16:00 Ur Epithelial Cells OCCASIONAL /lpf (FEW) 05/13/17 16:00 Amorphous Sediment MODERATE URATES (NONE SEEN) 05/07/17 13:45 Urine Bacteria NONE SEEN /hpf (NONE SEEN) 05/13/17 16:00 Urine Mucus MODERATE /lpf (FEW) 05/07/17 13:45 Urine Test NEGATIVE 05/07/17 13:45 Vancomycin Trough 11.1 ug/mL (10-20) 05/13/17 05:25 Random Vancomycin 15.5 ug/mL (5.0-40.0) 05/12/17 13:00 Valproic Acid 25.4 ug/mL (50.0-100.0) L 05/07/17 13:06 Hepatitis A IgM Ab Negative (Negative) 05/12/17 13:00 Hep Bs Antigen Negative (Negative) 05/12/17 13:00 Hep B Core IgM Ab Negative (Negative) 05/12/17 13:00 Hepatitis C Antibody <0.1 s/co ratio (0.0-0.9) 05/12/17 13:00 - Physical Exam Vitals and I&O: Vital Signs Temp 98.6 F 05/16/17 11:00 Pulse 105 05/16/17 11:00 Resp 18 05/16/17 11:00 BP 100/71 05/16/17 11:00 Pulse Ox 95 05/16/17 11:00 Intake & Output 05/15/17 05/16/17 05/16/17 18:59 06:59 18:59 Intake Total 1400 1650 50 Output Total 1130 1050 Balance 270 600 50 Weight (lbs) 126 lb 6 oz 140 lb Intake: Intake, IV Amount 300 1050 50 Cefepime 1 gm In Dextrose 50 50 50 5% 50 ml @ 100 mls/hr IV Q12H [facility] Rx#:[id number] D5-0.45NS w/40 mEq KCL 1, 1000 000 ml @ 60 mls/hr IV . [id number] [facility] Rx#:[id number] Vancomycin HCl 1 gm In 250 Sodium Chloride 0.9% 250 ml @ 165 mls/hr IV Q18H [facility] Rx#:[id number] Tube Feeding 600 600 Other 500 Output: Drainage 80 50 Right Abdomen 80 50 Urine 1050 1000 Other: # Bowel Movements 0 Active Medications: Current Medications Acetaminophen (Tylenol) 650 mg PO Q4H PRN PRN Reason: Mild Pain Or Fever above 101 Stop: 07/06/17 20:03 Last Admin: 05/14/17 18:22 Dose: 650 mg Acetaminophen (Tylenol 650mg Supp) 650 mg RC Q4H PRN PRN Reason: Fever > 101 Stop: 07/12/17 11:47 Last Admin: 05/13/17 12:04 Dose: 650 mg Al Hydrox/Mg Hydrox/Simethicone (Maalox) 30 ml PO Q6H PRN PRN Reason: Dyspepsia Stop: 07/06/17 20:03 Albuterol Sulfate (Albuterol 2.5mg/3ml Neb Ud) 2.5 mg HHN Q2HRT PRN PRN Reason: Shortness of Breath or Wheeze Stop: 07/06/17 20:03 Artificial Tears (Artificial Tears Ophth Soln) 1 drop EACH EYE BID [facility] Stop: 07/07/17 08:59 Last Admin: 05/16/17 10:05 Dose: 1 drop Divalproex Sodium (Depakote Sprinkle) 125 mg GT Q12HR [facility] PRN Reason: Protocol Stop: 07/07/17 11:59 Last Admin: 05/16/17 08:50 Dose: 125 mg Docusate Sodium (Colace) 100 mg GT DAILY [facility] Stop: 07/07/17 12:59 Last Admin: 05/16/17 08:50 Dose: 100 mg Ferrous Sulfate (Iron) 300 mg GT TID [facility] Stop: 07/07/17 13:59 Last Admin: 05/16/17 08:50 Dose: 300 mg Heparin Sodium (Porcine) (Heparin) 5,000 units SUBQ Q12HR [facility] Stop: 07/07/17 20:59 Last Admin: 05/16/17 08:50 Dose: 5,000 units Cefepime HCl 1 gm/ Dextrose 50 mls @ 100 mls/hr IV Q12H [facility] Stop: 07/06/17 20:59 Last Infusion: 05/16/17 09:17 Dose: Infused Vancomycin HCl 1 gm/ Sodium (Chloride) 250 mls @ 165 mls/hr IV Q18H [facility] Stop: 05/16/17 14:00 Last Admin: 05/16/17 10:05 Dose: 165 mls/hr Potassium Chloride/Dextrose/Sod Cl (D5-0.45ns W/40 Meq Kcl) 1,000 mls @ 60 mls/ hr IV .[id number] [facility] Stop: 07/12/17 13:59 Last Admin: 05/15/17 23:37 Dose: 60 mls/hr Vancomycin HCl 1 gm/ Sodium (Chloride) 250 mls @ 165 mls/hr IV Q12H [facility] Stop: 07/15/17 21:59 Ipratropium [place] (Atrovent Neb 0.5mg/2.5ml) 0.5 mg IH Q2HRT PRN PRN Reason: Shortness of Breath or Wheeze Stop: 07/06/17 20:03 Lactobacillus Rhamnosus (Culturelle) 1 each PO DAILY [facility] Stop: 07/08/17 08:59 Last Admin: 05/16/17 08:50 Dose: 1 each Latanoprost (Xalatan 0.005% [facility] Sol) 1 drop RIGHT EYE HS [facility] Stop: 07/06/17 20:59 Last Admin: 05/15/17 20:44 Dose: 1 drop Midodrine (Proamatine) 10 mg PO TID [facility] Stop: 07/08/17 13:59 Last Admin: 05/16/17 08:50 Dose: 10 mg Miscellaneous (Vte Chemical Prophylaxis Screen/ Admission) 1 ea PRN PRN PRN Reason: PROTOCOL Stop: 07/07/17 12:25 Miscellaneous (Probiotic Screen) 1 ea PRN PRN PRN Reason: PROTOCOL Stop: 07/07/17 14:41 Morphine Sulfate (Morphine) 2 mg IVP Q2HR PRN PRN Reason: Pain (Severe) Stop: 07/11/17 12:55 Last Admin: 05/15/17 20:40 Dose: 2 mg Ondansetron HCl (Zofran) 4 mg IV Q8H PRN PRN Reason: Nausea / Vomiting Stop: 07/06/17 20:03 Pantoprazole Sodium (Protonix) 40 mg GT QDAC [facility] Stop: 07/07/17 08:59 Last Admin: 05/16/17 09:01 Dose: 40 mg General: weak, alert HEENT: NC/AT, PERRLA Neck: Supple Lungs: CTAB Cardiovascular: RRR, Normal S1, Normal S2 Abdomen: soft, non-tender, non-distended Extremities: excoriation - Procedures Procedures: Procedures Procedure Code Date CHANGE FEEDING DEVICE IN UP INTEST TRACT, PIPE ORGAN MECHANIC APPRENTICE APPROACH [id number] 05/07/17 CHANGE GASTROSTOMY TUBE 86199 05/07/17 INSPECTION OF GALLBLADDER, PERCUTANEOUS ENDOSCOPIC APPROACH [id number] 05/07/17 REMOVAL OF GALLBLADDER 81370 05/07/17 RESECTION OF GALLBLADDER, OPEN APPROACH [id number] 05/07/17 Internal Medicine Assmt/Plan - Assessment Assessment: SEPSIS ALOC HYPERNATREMIA HYPOKALEMIA GT MALFUNCTION ACUTE UTI S/P LAP MARS - Plan Plan: PAIN MGMT IVF FOR HYDRATION EMPIRIC IV ANTIBIOTICS MONITOR ELECTROLYTES CONTINUE CURRENT PLAN OF CARE Nutritional Asmnt/Malnutr-PDOC - Dietary Evaluation Malnutrition Findings (Please click <Entered> for more info): Nutritional Asmnt/Malnutrition Start: 05/08/17 11: 46 Text: Status: Complete Freq: Document 05/08/17 11:46 GSUN (Rec: 05/08/17 12:08 GSUN [email or web address]) Nutritional Asmnt/Malnutrition Patient General Information Nutritional Screening High Risk Screening Diagnosis ER: dehydration, possible sepsis with leukocytosis, DM Pertinent Medical Hx/Surgical Hx ER report: PUD/GERD, trauma brain injury, chronic anemia Subjective Information 37 year old female from SNF. Pt was awake, non-verbal, family at bedside. GI Dr. Ch arrived during visit to replace g-tube. Confirmed with RN and pt's chart, pt is tube feeding dependent with pureed [place] for oral gratification. No muscle fat wasting noted. Current Diet Order/ Nutrition Support Currently no diet order. Pertinent Medications D5w, Iron, Novolog, Vancomycin , Zofran, Protonix Pertinent Labs 05/07: A1c 5.3 05/08: sodium 163H, potassium 3 .4L, glucose 143H, total bilirubin 1.3H Nutritional Hx/Data Height 5 ft 7 in Height (Calculated Centimeters) 170.2 Current Weight (lbs) 139 lb Weight (Calculated Kilograms) 63.0 Weight (Calculated Grams) 48023.3 [place] Body Weight 135 Weight Status Approriate GI Symptoms Difficult in: Chewing Swallowing Food Allergies No Cultural/Ethnic/Sikh Belief [facility]: pureed with [place] for oral gratification. EN two trista bolus 5 cans per day, providing 1185ml and 2375kcal. Usual diet at home Refer to above. Skin Integrity/Comment: Robin 13. LEft arm non- pitting 3+. Estimated Nutritional Goals BEE in Kcals: Using Current wt Calories/Kcals/Kg CBW 139lb/63.2kg Kcals Calculated 1580-2212kcal (25-35kcal/kg, possible sepsis and 2375kcal at SNF) Protein: Using Current wt Protein Calculated 63-82g (1-1.3g/kg) Fluid: ml 1580-2212ml (1ml/kcal) Nutritional Problem 1. Problem Problem Increased kcal and prot needs related to Etiology possible hypermetabolic state, unknown aeb Signs/Symptoms: possible sepsis, pt receieves 2375kcal at [facility] Intervention/Recommendation Comments 1. Recommend Nutren 2.0 as pt toelrates this formula at [facility] at 40ml/hr x 24hrs, providing 960ml total volume, 1920kcal, and 81g protein. 2. Monitor glucose levels, if remains consistantly high, recommend Diabetisource at 70ml/hr x 24hrs, providing 1680ml total volume, 2016kcal, and 101g protein. 3. Recommend pureed [place] thick food items for oral gratification if needed as pt tolerates at [facility]. Expected Outcomes/Goals Expected Outcomes/Goals 1. Pt to meet 100% of estimated nutritional needs on tube feeding with tolerance.
[2017-05-16] MEDS ORDERED: Dextrose 5% 1,000 ML IV SCH (13:15)
--- NOTE | 2017-05-16 16:09 | Pathology Report ---
[id number] Collection Date: 05/12/2017 Surgeon: Dr. Jose Hess Specimen Description: Gallbladder Gross Description: Received in formalin is a 9 x 5.5 x 2.5 cm oval gallbladder with a glistening, carmona-childs outer surface. Opening the gallbladder reveals a single yellowish-green gallstone measuring 2.1 cm in greatest dimension. The gallbladder mucosa appears to be diffusely eroded with the gallbladder wall ranging from 0.1 to 0.3 cm in thickness. Sectioning shows no focal lesions. [employer] sections are submitted in one cassette. Gross Pathologic Diagnosis: Cholelithiasis, gallbladder. Microscopic Description: The histologic sections show gallbladder wall and mucosa with diffuse mucosal ulceration and mild chronic inflammation consisting of lymphocytes and plasma cells. Diagnosis: Chronic cholecystitis, gallbladder. [facility]# [id number]
[2017-05-16] MEDS: Morphine Sulfate 2 mg/mL 1mL Syr IVP PRN (21:57)
[2017-05-17 05:32] LABS: HEMATOCRIT 36.4 % (41.0-60); MEAN CELL VOLUME 93.2 fl (81-100); MEAN CORPUSCULAR HEMOGLOBIN 30.9 pg (27.0-31.0); MEAN CORPUSCULAR HGB CONC 33.1 pg (28.0-36.0); MEAN PLATELET VOLUME 8.4 fl; PLATELET COUNT 509 Th/cmm (150-400)
[2017-05-17 05:43] LABS: WHITE BLOOD COUNT 14.2 Th/cmm (4.8-10.8)
[2017-05-17 06:01] LABS: ANION GAP 11.4 (7.0-16.0); BUN - UREA NITROGEN 8 mg/dL (7-25); CALCIUM SERUM 9.4 mg/dL (8.6-10.3); CARBON DIOXIDE 26.7 mEq/L (21.0-31.0); CHLORIDE 105 mEq/L (98-107); CREATININE - SERUM 0.4 mg/dL (0.6-1.2); GLUCOSE 111 mg/dL (70-105); POTASSIUM SERUM 4.1 mEq/L (3.5-5.1); SODIUM SERUM 139 mEq/L (136-145)
[2017-05-17 06:04] LABS: TOTAL CELLS COUNTED 100
[2017-05-17 06:05] LABS: BAND NEUTROPHILE 1 % (0-10); EOSINOPHIL 2 % (0-5); NEUTROPHILS 58 % (40-80)
[2017-05-17] MEDS: Ferrous Sulfate 300 MG/5 ML UDC GT SCH ×2 (08:48→13:58)
[2017-05-17] MEDS: Polyvinyl Alcohol Ophth Soln 15 mL Bottle EACH EYE SCH (08:48)
[2017-05-17] MEDS: Docusate Sodium 100 mg/10 mL UD GT SCH (08:48)
== END 2017-05-17 16:06 | DRG 229 ==
LOC: ER 12:36 → ICU 19:32 → TELE 05-15 18:30
PROVIDERS: ADMIT Internal Medicine; ATTEND Internal Medicine
PROC: 0D20XUZ Change Feeding Device in Upper Intestinal Tract, External Approach (ICD-10-PCS; principal; 2017-05-08)
PROC: 0FJ44ZZ Inspection of Gallbladder, Percutaneous Endoscopic Approach (ICD-10-PCS; 2017-05-12)
PROC: 0FT40ZZ Resection of Gallbladder, Open Approach (ICD-10-PCS; 2017-05-12)
PROC: 02HV33Z Insertion of Infusion Device into Superior Vena Cava, Percutaneous Approach (ICD-10-PCS; 2017-05-12)
DX: K94.23 Gastrostomy malfunction (principal); A41.9 Sepsis, unspecified organism; G93.41 Metabolic encephalopathy; K80.01 Calculus of gallbladder with acute cholecystitis with obstruction; K82.1 Hydrops of gallbladder; E87.0 Hyperosmolality and hypernatremia; D64.9 Anemia, unspecified; E11.9 Type 2 diabetes mellitus without complications; K74.60 Unspecified cirrhosis of liver; R13.10 Dysphagia, unspecified; R16.0 Hepatomegaly, not elsewhere classified; E86.0 Dehydration; K21.9 Gastro-esophageal reflux disease without esophagitis; R50.82 Postprocedural fever; E87.6 Hypokalemia; N39.0 Urinary tract infection, site not specified; F41.9 Anxiety disorder, unspecified; F39 Unspecified mood [affective] disorder; R07.89 Other chest pain; Z98.2 Presence of cerebrospinal fluid drainage device; Z87.820 Personal history of traumatic brain injury; Z87.11 Personal history of peptic ulcer disease; Z53.31 Laparoscopic surgical procedure converted to open procedure
CPT/HCPCS: 36415-UA; 70450-TC; 71010-TC; 76700-TC; 78226-TC; 80048-TC; 80053-TC; 80074-90; 80076-TC; 80164-TC; 80202-TC; 81001-TC; 81025-TC; 82140-TC; 82248-TC; 82550-TC; 82607-90; 82746-90; 82948-90; 83036-90; 83605; 83690-TC; 83735-TC; 84100-TC; 84443-TC; 84484-TC; 85007-TC; 85025-TC; 85027-TC; 85610-TC; 87070-90; 87075-90; 87205-90; 88304-TC; 90799; 93005; 94760; 96375; A9537; J0295; J0610; J0692; J0696; J1644; J1815; J2001; J2060; J2270; J2710; J3370; J3480; J7030; J7040; J7070; X3401; X6206; X6258; Z7610